=== PATIENT | female | born 1945 | race Caucasian/White ===

== ENCOUNTER 2019-04-30 14:16 | Inpatient (IN) ==
--- OUTSIDE RECORDS SUMMARY | 2019-04-30 14:19 | External Medical Summary | Continuity of Care Document ---
:1945 Author Name Demetrius Fitzgerald Address Unavailable Unavailable , Care Team Providers Name Role Phone Cary Moreland M.D. 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) Osteoarthrosis (715.90) (M19.90) Hypopotassemia (276.8) (E87.6) Dyslipidemia (272.4) (E78.5) Anxiety (300.00) (F41.9) Osteoporosis (733.00) (M81.0) GERD (gastroesophageal reflux disease) (530.81) (K21.9) Anemia (285.9) (D64.9) Dermatitis (692.9) (L30.9) Leg ulcer (707.10) (L97.909) Vitamin D deficiency (268.9) (E55.9) Adjustment disorder (309.9) (F43.20) Depression (311) (F32.9) Oth slipping, tripping and stumbling w/o falling, init (E917 .9) Abnormal gait (781.2) (R26.9) Hemorrhoid (455.6) (K64.9) Obsessive compulsive disorder (300.3) (F42.9) Addiction, opium (304.00) (F11.20) 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) Dizziness (780.4) (R42) Marylou esophagitis (112.84) (B37.81) Gastrointestinal bleeding, lower (578.9) (K92.2) Acute kidney injury (584.9) (N17.9) Acute respiratory failure with hypoxemia (518.81) (J96.01) Hypokalemia (276.8) (E87.6) HTN (hypertension) (401.9) (I10) Venous insufficiency (459.81) (I87.2) Leucocytosis (288.60) (D72.829) Arthritis, rheumatoid (714.0) (M06.9) Lung nodule (793.11) (R91.1) Diverticulitis (562.11) (K57.92) Allergies and Adverse Reactions Aleve TABS (Allergy) Reaction: Itching CeleBREX CAPS (Allergy) Clindamycin (Allergy) Reaction: Nausea Doxycycline Monohydrate CAPS (Allergy) R eaction: Nausea, Vomiting hydroCHLOROthiazide TABS (Allergy) React ion: Nausea, Vomiting oxyCODONE HCl TABS (Allergy) Reaction: I tching, Nausea, Vomiting Penicillins (Allergy) Reaction: Edema rofecoxib (Allergy) Reaction: Swelling Bee sting (Allergy) Medications One Touch Ultra Test Strips; Twice daily Refills: 0 Zoloft 50 MG Oral Tablet; TAKE 1 TABLET DAILY. Quantity: 30 Refills: 5 HYDROcodone-Acetaminophen 10-325 MG Oral Tablet; TAKE 1or 2 TABLET EVERY 4 HOURS NEEDED. Maximum of 8 / day. Quantity: 120 Refills: 0 Gabapentin 600 MG Oral Tablet; TAKE 1 TABLET 3 times daily Quantity: 270 Refills: 1 Dulcolax 5 MG Oral Tablet Delayed Release; TAKE 1 TABLET EVELINA LY NEEDED. Refills: 0 Lisinopril 10 MG Oral Tablet; TAKE 1 TABLET BY MOUTH EVERY D AY Quantity: 90 Refills: 3 Klor-Con M20 20 MEQ Oral Tablet Extended Release; Take 1 tab let daily Quantity: 90 Refills: 3 fentaNYL 25 MCG/HR Transdermal Patch 72 Hour; APPLY 1 PATCH EVERY 3 DAYS Quantity: 5 Refills: 0 fentaNYL 12 MCG/HR Transdermal Patch 72 Hour; APPLY 1 PATCH EVERY 3 DAYS 1 Patch 72 Hour Box Quantity: 2 Refills: 0 predniSONE 5 MG Oral Tablet; (3) TABLET ALTERNATING WITH 2 TABLETS EVERY OTHER DAY Refills: 0 Folic Acid 1 MG Oral Tablet; TAKE 1 TABLET DAILY. Quantity: 30 Refills: 5 Protonix 40 MG Oral Tablet Delayed Relea se; TAKE 1 TABLET TWICE DAILY 30 MINUTES BEFORE BREAKFAST AND DINNER. Quantity: 60 Refills: 5 Lipitor 20 MG Oral Tablet; TAKE 1 TABLET DAILY DIRECTED. Quantity: 30 Refills: 5 Ferrous Sulfate 325 (65 Fe) MG Oral Tablet; Take 1 tablet tw ice a day Quantity: 60 Refills: 5 Zofran 4 MG Oral Tablet; one tablet every 4-6 hours as neede d for nausea Quantity: 30 Refills: 0 Acetaminophen ER 650 MG Oral Tablet Exte nded Release; TAKE 1 TABLET 4 TIMES DAILY NEEDED. Refills: 0 ALPRAZolam 0.25 MG Oral Tablet; TAKE 1 TABLET EVERY 12 HOURS NEEDED. Refills: 0 Vitamin D 1000 UNIT TABS; TAKE 1 TABLET DAILY. Quantity: 30 Refills: 5 Multiple Vitamins Oral Tablet; TAKE 1 TABLET DAILY. Refills: 0 Reclast 5 MG/100ML Intravenous Solution; INFUSE 5MG INTRAVENOUSLY OVER 15 MINUTES DIRECTED. Refills: 0 Carafate 1 GM Oral Tablet; TAKE 1 TABLET IN MORNING Refills: 0 Procedures History of Hysterectomy Status: Complete d History of Neuroplasty Decompression Median Nerve At Carpal Status: Completed Tunnel History of Cholecystectomy Status: Compl eted History of Leg Repair Status: Completed Immunizations Immunizations not documented Family History Father Family history of lung cancer (V16.1) (Z80.1) Status: Active Family history of Disorder of skeletal muscle (728.9) (M62.9 ) Status: Active Mother Family history of Stroke or transient ischemic attack (TIA) Status: Active diagnosed during current admission (435.9) Brother Family history of cardiac disorder (V17.49) (Z82.49) Status: Active natural son Family history of Seizure (780.39) (R56.9) Status: Active Plan of Treatment Planned Observations Planned Goals not documented Results No Known Results Results not documented
--- OUTSIDE RECORDS SUMMARY | 2019-04-30 14:19 | External Medical Summary | Continuity of Care Document ---
:1945 Author Name Demetrius iFtzgerald Address Unavailable Unavailable , Care Team Providers Name Role Phone Cary Moreland M.D. 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 Quantity: 60 Refills: 5 Carafate 1 GM Oral Tablet; TAKE 1 TABLET IN MORNING Refills: 0 Lipitor 20 MG Oral Tablet; TAKE 1 [...] INTRAVENOUSLY OVER 15 MINUTES DIRECTED. Refills: 0 Procedures History of Hysterectomy Status: [...]
[2019-04-30] MEDS ORDERED: SODIUM CHLORIDE 0.9% 1000ML 500 ML IV ONE (14:37)
[2019-04-30] MEDS ORDERED: ONDANSETRON INJ 2 MG/ML 2 ML VIAL IV STA ×2 (14:49→16:42)
[2019-04-30 15:09] LABS: Basophils # (auto) 0.03 K/uL (0-0.2); Basophils % (auto) 0.2 %; Eosinophils # (auto) 0.21 K/uL (0-0.5); Eosinophils % (auto) 1.3 %; Hematocrit (blood only) 37.2 % (37-47); Hemoglobin 11.7 g/dL (12.0-16.0); Immature Granulocytes # (auto) 0.22 K/uL (0.00-0.02); Immature Granulocytes % (auto) 1.4 %; Lymphocytes # (auto) 1.98 K/uL (1.2-3.4); Lymphocytes % (auto) 12.6 %; Mean Corpuscular Hemoglobin 26.8 pg (25-34); Mean Corpuscular Hgb Conc 31.5 g/dL (32-36); Mean Corpuscular Volume 85.3 fL (80-100); Mean Platelet Volume 8.3 fL (7.4-10.4); Monocytes # (auto) 1.11 K/uL (0.11-0.59); Monocytes % (auto) 7.1 %; Neutrophils # (auto) 12.15 K/uL (1.4-6.5); Neutrophils % (auto) 77.4 %; Platelet Count 491 K/uL (130-400); RDW Coefficient of Variation 15.7 % (11.5-14.5); RDW Standard Deviation 49.3 fL (36.4-46.3); Red Blood Count 4.36 M/uL (4.2-5.4)
[2019-04-30 15:15] LABS: Appearance Urine Clear (Clear); Bacteria Urine Automated Negative (Negative); Blood Urine Negative (Negative); Color Urine Dark Yellow; Epithelial Cell Urine Auto 0-5 /lpf (0-5); Glucose Urine UA Negative (Negative); Ketones Urine Negative (Negative); Leukocyte Esterase Urine Negative (Negative); Nitrite Urine Negative (Negative); Protein Urine Trace (Negative); RBC Urine Automated 0-4 /hpf (0-4); Specific Gravity Urine 1.026 (1.000-1.030); Urobilinogen Urine Negative (Negative)
[2019-04-30 15:17] LABS: Bilirubin Urine Negative (Negative); Ictotest Urine Negative (Negative)
[2019-04-30 15:30] LABS: Alanine Aminotransferase 19 U/L (12-78); Albumin Level 1.8 gm/dl (3.4-5.0); Aspartate Aminotransferase 24 U/L (15-37); BUN Creatinine Ratio 28.4 (10-20); Bilirubin Direct 0.1 mg/dl (0-0.2); Blood Urea Nitrogen 23 mg/dl (7-18); Calcium 8.9 mg/dl (8.5-10.1); Carbon Dioxide 30 mmol/L (21-32); Chloride 103 mmol/L (98-107); Est GFR (African American) 82.9; Est GFR (Non-African American) 71.5; Glucose 123 mg/dl (70-99); Lipase 34 U/L (73-393); Potassium 3.6 mmol/L (3.5-5.1); Sodium 138 mmol/L (136-145)
--- NOTE | 2019-04-30 15:31 | CT Scan Report ---
HEAD CT NONCONTRAST CT DOSE: 537.48 mGy.cm HISTORY: Weakness. Altered mental status. TECHNIQUE: Multiaxial CT images of the head were performed without the use of intravenous contrast. A utomated exposure control was utilized for this study. A dose lowering technique was utilized adheri ng to the principles of ALARA. Comparison: None. Findings: Chronic opacification of the right ethmoid air cell and the right sphenoid sinus. This has slightly improved within the right sphenoid sinus. The mastoid air cells are clear. The calvarium and skull base are intact. There is no mass, hematoma, midline shift, acute infarct. White matter hypode nsity is nonspecific but suggestive of microvascular ischemic change. The ventricles and sulci demons trate mild age-related involutional changes. Impression: 1. No acute intracranial abnormality. 2. Mild atrophy and microvascular ischemic changes are again noted. 3. Slight improvement in the chronic opacification of the right sphenoid sinus. ACT 112: Negative or not required by law. Electronically signed by: Art Vargas M.D. 04/30/2019 3:29 PM
[2019-04-30 15:35] LABS: Alkaline Phosphatase 193 U/L (45-117); Bilirubin,Total 0.4 mg/dl (0.2-1); Total Protein 7.4 gm/dl (6.4-8.2); Troponin I < 0.015 ng/ml (0-0.045)
--- NOTE | 2019-04-30 16:06 | XRay Report ---
CHEST AND ABDOMEN 2 VIEWS HISTORY: Vomiting. COMPARISON: Chest [id number]. Abdomen and pelvis CT 02/22/2018. FINDINGS: No pneumothorax. No pleural effusions. The heart remains mildly enlarged. There are low hugo g volumes with elevation the right hemidiaphragm, unchanged. Old, healed left-sided rib fractures. Th e lungs are clear. Prior cholecystectomy. Advanced degenerative changes within the shoulders. Small h iatus hernia. No pneumoperitoneum. No pneumatosis. Levoscoliosis of the lumbar spine. No renal or ure teral calculi. Vascular calcifications are noted within the pelvis. Postoperative changes seen within the right proximal femur. The bowel gas pattern is unremarkable. No evidence for bowel obstruction. Suture material within the mid abdomen consistent with prior bowel anastomosis. IMPRESSION: No acute cardiopulmonary process. No evidence for bowel obstruction. ACT 112: Negative or not required by law. Electronically signed by: Art Vargas M.D. 04/30/2019 4:05 PM
--- NOTE | 2019-04-30 16:07 | XRay Report ---
XR shoulder LT min 2V routine CLINICAL HISTORY: L shoulder pain COMPARISON STUDY: None. FINDINGS: Advanced degenerative changes at the glenohumeral joint with resorption of the distal clavi rika and irregularity of the humeral head. This appears chronic. There is superior subluxation of the humeral head likely representing chronic rotator cuff tear. Subchondral cystic change at the glenoid and humeral head which is also likely chronic. No acute fractures identified. IMPRESSION: 1. No acute fractures within the left shoulder. 2. Chronic and degenerative changes as described above. ACT 112: Negative or not required by law. Electronically signed by: Art Vargas M.D. 04/30/2019 4:06 PM
--- NOTE | 2019-04-30 16:12 | XRay Report ---
XR pelvis 1-2V routine CLINICAL HISTORY: Left hip pain. Fall. COMPARISON STUDY: Pelvis 02/13/2014. FINDINGS: No acute fracture or dislocation within the pelvis or hips. The sacrum is intact. Advanced degenerative changes within the lower lumbar spine. There is mild osteoarthritis within the bilateral hips. Prior internal fixation of an old, healed right hip intertrochanteric fracture. The hardware a ppears intact. IMPRESSION: No acute fracture or dislocation within the pelvis or hips. ACT 112: Negative or not required by law. Electronically signed by: Art Vargas M.D. 04/30/2019 4:10 PM
[2019-04-30 16:31] LABS: Influenza A virus by PCR Neg for Influ A (Neg); Influenza B virus by PCR Neg for Influ B (Neg)
[2019-04-30 16:40] LABS: Partial Thromboplastin Ratio 3.2; Prothrombin Time > 90.0 Seconds (9.0-12.0)
[2019-04-30] MEDS: SODIUM CHLORIDE 0.9% 500 ML IV SCH ×2 (16:42→20:09)
[2019-04-30] MEDS ORDERED: MoRPHine SULFATE 4 MG/ML 1 ML CARP\\VIAL IV STA (16:42)
[2019-04-30 16:43] LABS: INR > 10.4 (0.9-1.1)
[2019-04-30 16:44] LABS: Partial Thromboplastin Time 86.2 Seconds (21.0-31.0)
[2019-04-30] MEDS ORDERED: VANCOMYCIN CONSULT ACTIVE PRN (16:46)
[2019-04-30] MEDS ORDERED: VANCOMYCIN HCL 1,250 MG in SODIUM CHLORIDE 0.9% 500 ML IV ONE (16:46)
[2019-04-30] MEDS ORDERED: CEFEPIME 2,000 MG/20 ML VIAL IV STA (16:46)
[2019-04-30] MEDS ORDERED: PHYTONADIONE 5 MG in SODIUM CHLORIDE 0.9% 50 ML IV ONE (16:49)
[2019-04-30] MEDS ORDERED: SODIUM CHLORIDE 0.9% 1000ML 1,000 ML IV SCH (17:00)
--- NOTE | 2019-04-30 18:31 | History & Physical Report ---
Date of Service April 30, 2019 Assessment & Plan (1) Left shoulder pain: (2) Leukocytosis: Pt is 73 y/o F with PMH HTN, dyslipidemia, h/o thyroid induced diabetes, anxiety, mood disorder, RLS, h/o PE on Coumadin, rheumatoid arthritis, chronic pain shoulders and knees presented to ER with c/o increased L shoulder pain x 1 week. In ER patient afebrile, BP: 84, RR: 20, BP: 129/75, 92% on room air WBC: 15, H/H: 11.7/37 (baseline Hgb ~1), lactate: 2.2 Right shoulder x-ray: No acute fractures within the left shoulder. Chronic and degenerative changes as described above. DDX: Septic arthritis, RA flare. DVT LUE less likely given pt's INR >10 Suspect septic right shoulder. Avoiding aspiration of joint at this time secondary to elevated INR -In ER given NSS 500 mL bolus followed by 125 mL an hour, cefepime, vancomycin -Repeat lactate 1.7 -Blood cultures pending -Continue cefepime, vancomycin -Add ESR -Obtain CT right shoulder -IV fluids, do not need aggressive fluid resuscitation secondary to lactate less than 4 -Ortho consult -CBC, BMP in a.m. -Consider ID consult (3) Nausea and vomiting: Complains of intermittent nausea and vomiting x 2 weeks. Last episode of emesis yesterday. Poor oral intake past 3 days. Reported upper abdominal pain prior to vomiting improved with vomiting Seen at [facility] ER on 04/25/2019 for generalized abdominal pain with CT abdomen pelvis no acute findings CXR/ABD XRAY: No acute cardiopulmonary process. No evidence for bowel obstruction. May be secondary to underlying infection, possible sepsis -No current abdominal pain -Zofran PRN nausea -Clear liquids for now -Closely monitor -CBC, BMP in a.m. -If worsening consider further imaging, and possible GI consult (4) Supratherapeutic INR: (5) History of pulmonary embolism: History of PE on chronic Coumadin INR > 10. Reported epistaxis last night resolved with compression. Denies hematuria, hematochezia, melena No current bleeding -In ER given vitamin K 5 mg IV -Hold Coumadin -INR in a.m. (6) Rheumatoid arthritis: (7) Chronic pain: Chronic bilateral shoulder and knee pain Patient follows with rheumatology - Dr Shaw. Pt on Remicade, chronic prednisone 5 mg daily, fentanyl and hydrocodone. 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 A1c: 6.5 on 09/09/2018. No current medication -Monitor BSG (9) Dyslipidemia: -Continue statin (10) Anxiety: -Continue sertraline (11) Restless leg syndrome: -Continue ropinirole DVT Prophylaxis -On Coumadin with current supratherapeutic INR Full Code as per discussion with pt Follows with Dr Becerra for routine care Pt was seen and care coordinated with Dr Zhao. See addendum History of Present Illness Chief Complaint: Left shoulder pain Primary Care Provider: Raheel Becerra MD Pt is 73 y/o F with PMH HTN, dyslipidemia, h/o thyroid induced diabetes, anxiety, mood disorder, RLS, h/o PE on Coumadin, rheumatoid arthritis, chronic pain shoulders and knees presented to ER with complaints of increased shoulder pain x1 week. Patient follows with rheumatology - Dr Shaw. Pt on Remicade, chronic prednisone 5 mg daily, fentanyl and hydrocodone. Patient reports chronic shoulder and knee pain. Reports left shoulder pain greater than right shoulder pain chronically. Patient states 1 week ago started with increased left shoulder pain. Patient states past 3 days has noticed increased edema to left shoulder and area feels warm. Patient reports pain radiating from left shoulder down the left arm. Reports limited range of motion to left shoulder secondary to pain. Denies paresthesias. No recent injury or trauma. Patient also reports decreased appetite past several days. She reports intermittent nausea and vomiting over the past 2 weeks. Last episode of vomiting yesterday. Reports upper abdominal pain prior to vomiting which improves after vomiting. Denies any current abdominal pain now. Last BM 5 days ago. Patient states episode of epistaxis last night lasting 15-20 minutes, resolved with compression. Denies melena, hematochezia, hematuria. Denies fever. reports always cold. States past 2 days with generalized weakness. Denies diaphoresis,, BULLARD, dizziness, syncope, vision changes, neck pain, CP, SOB, orthopnea, palpitations, cough, sore throat, choking, otalgia, rhinorrhea, other extremity edema, rashes, urinary symptoms. Patient was seen at [facility] ER on 04/25/2019 for left shoulder pain and generalized abdominal pain. There she was given Zofran 4 mg IV, Compazine. Had CT abdomen pelvis did not show any acute findings. Had x-ray of shoulder revealing chronic severe erosive changes. Patient had no leukocytosis and was discharged home. Allergies Allergy/AdvReac Type Severity Reaction Status Date / Time bee venom protein (honey bee) Allergy Severe ANAPHYLAXIS Verified 04/30/19 15:43 celecoxib Allergy Severe ANAPHYLAXIS Verified 04/30/19 15:43 rofecoxib Allergy Severe ANAPHYLAXIS Verified 04/30/19 15:43 naproxen Allergy Intermediate RASH Verified 04/30/19 15:43 oxycodone Allergy Intermediate RASH Verified 04/30/19 15:43 Penicillins Allergy Intermediate Hives Verified 04/30/19 15:43 Bactrim AdvReac Intermediate GI SYMPTOMS Verified 02/27/17 10:41 sulfamethoxazole AdvReac Intermediate GI SYMPTOMS Verified 04/30/19 15:43 trimethoprim AdvReac Intermediate GI SYMPTOMS Verified 04/30/19 15:43 clindamycin AdvReac Mild GI SYMPTOMS Verified 04/30/19 15:43 doxycycline AdvReac Mild GI SYMPTOMS Verified 04/30/19 15:43 hydrochlorothiazide AdvReac Mild Gi Symptoms Verified 04/30/19 15:43 Home Medications Home Medications Medication Instructions Recorded Confirmed Type ferrous sulfate 325 mg PO DAILY 02/22/18 04/30/19 History gabapentin 800 mg PO TID 02/22/18 04/30/19 History prednisone 5 mg PO DAILY 02/22/18 04/30/19 History ropinirole 0.5 mg PO HS 02/22/18 04/30/19 History sertraline 50 mg PO DAILY 02/22/18 04/30/19 History sucralfate 1 g PO ACHS 02/22/18 04/30/19 History atorvastatin [Lipitor] 40 mg PO DAILY 04/30/19 04/30/19 History fentanyl 37.5 mcg TOPICAL [id number] 04/30/19 04/30/19 History hydrocodone-acetaminophen 1 - 2 tab PO TID PRN 04/30/19 04/30/19 History omeprazole 20 mg PO DAILY 04/30/19 04/30/19 History ondansetron HCl [Zofran] 4 mg PO Q8 PRN 04/30/19 04/30/19 History warfarin [Jantoven] 1 mg PO DAILY 04/30/19 04/30/19 History Past Med/Surg History Medical History (Updated 04/30/19 @ 19:44 by Tyra Arreaga PA-C) Anxiety (Chronic) Chronic pain Dyslipidemia (Chronic) Gastric ulcer (Chronic) GERD (gastroesophageal reflux disease) (Chronic) HTN (hypertension) (Chronic) Neuropathy Osteoarthritis (Chronic) Osteoporosis PVD (peripheral vascular disease) (Chronic) Rheumatoid arthritis (Chronic) Steroid-induced diabetes mellitus (Chronic) Surgical History (Updated 02/27/18 @ 00:01 by Debbie Santoro) Femur fracture, right (Chronic) "s/p ORIF" H/O: hysterectomy History of carpal tunnel surgery of left wrist (Chronic) History of carpal tunnel surgery of right wrist (Chronic) History of skin graft (Chronic) Hx of cholecystectomy (Chronic) Hx of cholecystectomy S/P SHIRIN-BSO (Chronic) Social History Preferred Language: Irish Communication Ability: Effective Taping Supervisor Required: No Beliefs That Will Affect Care: None marital status: Current Living Situation: Spouse Other Information That Helps Us Care for You: No Feels Safe at Home: Yes Safety Concerns: Feels Safe At This Time Smoking Status: Former smoker Tobacco Type: cigarettes ; Do You Dip or Chew Tobacco: No ; Second Hand Exposure: No ; Tobacco Cessation Education Requested by Patient: No Hx Alcohol Use: No Hx Substance Use: No Review of Systems Review of Systems: All systems reviewed & are unremarkable except as noted in HPI & below Physical Exam Physical Exam: General: no acute distress, ill appearing, but non-toxic appearance, WDWN Head: normocephalic, atraumatic Eyes: PERRL, EOM's intact, conjunctiva non-injected, anicteric ENT: normal inspection external ears, nose, mucous membranes mildly dry Neck: supple, trachea midline, non-tender Lungs: clear, no respiratory distress, no wheezing/rhonchi/rales CV: RRR, no murmur, no pretibial edema Abd: normal BS, soft, non-tender Ext: LUE: Shoulder with +edema, +warmth, slight erythema, edema extends to forearm. +moderate to severe tenderness to light palpation of entire shoulder, upper arm, elbow and forearm. wrist without edema and non-tender to palpation. Very limited active ROM of elbow. Attempted passive ROM elbow and shoulder however pt unable to tolerate secondary to discomfort. Able to flex and extend fingers. Distal pulses palpable, sensation to light touch intact, brisk capillary refill. Bilateral knee without edema, erythema or significant warmth, +tender to palpation anterior knees, Able to flex and extend knees no calf tenderness Neuro: A&O x 3, no focal deficits noted, normal affect Skin: warm, dry Results & Data Vital Signs (Past 12 Hours) Vital Signs Temp Pulse Resp BP BP Pulse Ox 04/30/19 18:22 76 20 102/54 L 99 04/30/19 17:56 74 16 103/55 L 98 04/30/19 17:15 77 20 104/55 L 100 04/30/19 16:30 77 26 H 141/63 H 92 04/30/19 14:31 84 20 92 04/30/19 14:19 37 C 20 129/75 Laboratory Results Short CBC 04/30/19 Range/Units 15:01 WBC 15.70 H (4.8-10.8) K/uL Hgb 11.7 L (12.0-16.0) g/dL Hct 37.2 (37-47) % Plt Count 491 H (130-400) K/uL BMP 04/30/19 15:01 Sodium 138 Potassium 3.6 Chloride 103 Carbon Dioxide 30 BUN 23 H Creatinine 0.82 Glucose 123 H Calcium 8.9 Cardiac Enzymes 04/30/19 Range/Units 15:01 Troponin I < 0.015 (0-0.045) ng/ml Liver Function 04/30/19 Range/Units 15:01 Total Bilirubin 0.4 (0.2-1) mg/dl Direct Bilirubin 0.1 (0-0.2) mg/dl AST 24 (15-37) U/L ALT 19 (12-78) U/L Alkaline Phosphatase 193 H (45-117) U/L Albumin 1.8 L (3.4-5.0) gm/dl Urine 04/30/19 Range/Units 14:45 Urine Color Dark Yellow Urine Appearance Clear (Clear) Urine pH 5.0 (4.5-7.5) Ur Specific Langston 1.026 (1.000-1.030) Urine Protein Trace H (Negative) Urine Glucose (UA) Negative (Negative) Diagnostic Findings CT HEAD: Impression: 1. No acute intracranial abnormality. 2. Mild atrophy and microvascular ischemic changes are again noted. 3. Slight improvement in the chronic opacification of the right sphenoid sinus. L SHOULDER XRAY: IMPRESSION: 1. No acute fractures within the left shoulder. 2. Chronic and degenerative changes as described above. CXR/ABD XRAY: IMPRESSION: No acute cardiopulmonary process. No evidence for bowel obstruction. PELVIS XRAY: IMPRESSION: No acute fracture or dislocation within the pelvis or hips. ECG Rate (beats per minute): 75 Rhythm: sinus rhythm Code Status & VTE Plan VTE Prophylaxis Plan VTE Prophylaxis will be ordered: No Supervising Physician Co-Signing Physician Notes Pt was seen and examined. Agreed with Tyra MIRANDA exam, assessment and plan. 73 y/o F with PMH HTN, dyslipidemia, h/o thyroid induced diabetes, anxiety, mood disorder, RLS, h/o PE on Coumadin, rheumatoid arthritis, chronic pain shoulders and knees presented to ER with increased left shoulder pain. Pt said that her left shoulder has been tenderness, swelling and redness for the past week. She said that pain worsening if she tried to move the left upper extremity. Pt said that she has been feeling very weak. Lab showed Elevated WBC, lactate and ESR. CT L shoulder showed moderate to large peripheral enhancing effusion within the glenohumeral joint with multiple septations and thickening of the synovial lining. There is also thickening and enhancement extending into the distal subscapularis muscle. Erosive changes within the glenohumeral joint, distal clavicle, and acromion are also noted. Imaging discussed with radiologist when compared with previous imaging left shoulder imaging taking today is worsening. Received IV Vanco and Cefepime in the ER, will continue abx. will need to aspirate the left shoulder but due to elevated INR above 5, will hold that for now until INR reverses. No sign of bleeding. IV vit K given. Will monitor PT/INR. Ortho consult to eval for septic joint arthritis. Continue pain control. Blood cx collected in the ER pending. Will monitor very closely. MD Cece (1) Leukocytosis Leukocytosis type: unspecified Qualified Code(s): D72.829 - Elevated white blood cell count, unspecified (2) Left shoulder pain Chronicity: chronic Qualified Code(s): M25.512 - Pain in left shoulder; G89.29 - Other chronic pain (3) Nausea and vomiting Vomiting Intractability: intractable Vomiting type: unspecified Qualified Code(s): R11.2 - Nausea with vomiting, unspecified
[2019-04-30] MEDS ORDERED: NON-FORMULARY MEDICATION (Fentanyl 37.5 MCG) TOP SCH (20:04)
[2019-04-30] MEDS: SODIUM CHLORIDE 0.9% 1000ML 1,000 ML IV SCH (20:17)
[2019-04-30] MEDS ORDERED: IOVERSOL 100ml IV PRN (20:35)
--- NOTE | 2019-04-30 20:37 | Pharmacy Report ---
Pharmacy Abx Dose Short Note - Date of Service April 30, 2019 - Assessment & Plan Assessment 73 year old F receiving IV Vancomycin and Cefepime for treatment of likely septic arthritis of right shoulder, RA flare. Plan Vancomycin 1250mg (19mg/kg) IV x1 dose in ER then Vancomycin 1000mg (15mg/kg) IV Q12H Patient meets criteria for vancomycin AUC dosing nomogram AUC/CAROLINA is the preferred PK/PD target for vancomycin Target AUC/CAROLINA= 400-600 AUC guided dosing is effective and associated with decreased risk of nephrotoxicity Trough levels poorly correlate with AUC/CAROLINA and trough monitoring has been associated with increased risk of nephrotoxicity Will check trough level on 05/02/18 prior to 0400 dose to ensure therapeutic dosing Pharmacy will continue to follow and will adjust dose/frequency as necessary. Thank you.
--- NOTE | 2019-04-30 20:49 | Emergency Department Note ---
Entered by Kayla Moreno acting as a scribe for History of Present Illness General Chief complaint: Weakness Stated complaint: NO FOOD/DRINK - BED FAST FOR 3 DAYS Time Seen by Provider: 04/30/19 14:30 History of Present Illness Provider complaint: weakness Onset (ago): week(s) 2 Pain Consistency: + constant Maximum Pain Intensity: 10 Quality: + other (weakness) Exacerbated By: + movement Associated symptoms: + denies other symptoms (has not been eating or drinking, abdominal pain, dysuria), + nausea/vomiting and + other (hip, knee and left shoulder pain, ); no chest pain and no shortness of breath The patient is a 73 year old female who presents to the ED with complaints of constant weakness that started 2 weeks ago. The patient states that she believes she had a stomach virus a few days ago and was vomiting. The patient states that she is also having pain in her hips, knees and left shoulder. The patient states that all of her pain is exacerbated by movement. Per , the patient has not been able to eat or drink anything for a few days because of the nausea and vomiting. The patient denies chest pain, shortness of breath, abdominal pain, and dysuria. The patient notes that she is on Coumadin and she has not missed any doses. Home Medications Home Medications Medication Instructions Recorded Confirmed Type ferrous sulfate 325 mg PO DAILY 02/22/18 04/30/19 History gabapentin 800 mg PO TID 02/22/18 04/30/19 History prednisone 5 mg PO DAILY 02/22/18 04/30/19 History ropinirole 0.5 mg PO HS 02/22/18 04/30/19 History sertraline 50 mg PO DAILY 02/22/18 04/30/19 History sucralfate 1 g PO ACHS 02/22/18 04/30/19 History atorvastatin [Lipitor] 40 mg PO DAILY 04/30/19 04/30/19 History fentanyl 37.5 mcg TOPICAL [id number] 04/30/19 04/30/19 History hydrocodone-acetaminophen 1 - 2 tab PO TID PRN 04/30/19 04/30/19 History omeprazole 20 mg PO DAILY 04/30/19 04/30/19 History ondansetron HCl [Zofran] 4 mg PO Q8 PRN 04/30/19 04/30/19 History warfarin [Jantoven] 1 mg PO DAILY 04/30/19 04/30/19 History Allergies Allergy/AdvReac Type Severity Reaction Status Date / Time bee venom protein (honey bee) Allergy Severe ANAPHYLAXIS Verified 04/30/19 15:43 celecoxib Allergy Severe ANAPHYLAXIS Verified 04/30/19 15:43 rofecoxib Allergy Severe ANAPHYLAXIS Verified 04/30/19 15:43 naproxen Allergy Intermediate RASH Verified 04/30/19 15:43 oxycodone Allergy Intermediate RASH Verified 04/30/19 15:43 Penicillins Allergy Intermediate Hives Verified 04/30/19 15:43 Bactrim AdvReac Intermediate GI SYMPTOMS Verified 02/27/17 10:41 sulfamethoxazole AdvReac Intermediate GI SYMPTOMS Verified 04/30/19 15:43 trimethoprim AdvReac Intermediate GI SYMPTOMS Verified 04/30/19 15:43 clindamycin AdvReac Mild GI SYMPTOMS Verified 04/30/19 15:43 doxycycline AdvReac Mild GI SYMPTOMS Verified 04/30/19 15:43 hydrochlorothiazide AdvReac Mild Gi Symptoms Verified 04/30/19 15:43 Past Med/Surg History Medical History (Updated 04/30/19 @ 19:44 by Tyra Arreaga PA-C) Anxiety (Chronic) Chronic pain Dyslipidemia (Chronic) Gastric ulcer (Chronic) GERD (gastroesophageal reflux disease) (Chronic) HTN (hypertension) (Chronic) Neuropathy Osteoarthritis (Chronic) Osteoporosis PVD (peripheral vascular disease) (Chronic) Rheumatoid arthritis (Chronic) Steroid-induced diabetes mellitus (Chronic) Surgical History (Updated 02/27/18 @ 00:01 by Debbie Santoro) Femur fracture, right (Chronic) "s/p ORIF" H/O: hysterectomy History of carpal tunnel surgery of left wrist (Chronic) History of carpal tunnel surgery of right wrist (Chronic) History of skin graft (Chronic) Hx of cholecystectomy (Chronic) Hx of cholecystectomy S/P SHIRIN-BSO (Chronic) Social History Preferred Language: Yoruba Communication Ability: Effective Messenger Floorperson Required: No Beliefs That Will Affect Care: None marital status: Current Living Situation: Spouse Other Information That Helps Us Care for You: No Feels Safe at Home: Yes Safety Concerns: Feels Safe At This Time Smoking Status: Former smoker Tobacco Type: cigarettes ; Do You Dip or Chew Tobacco: No ; Second Hand Exposure: No ; Tobacco Cessation Education Requested by Patient: No Hx Alcohol Use: No Hx Substance Use: No Review of Systems See HPI for pertinent positives & negatives. and A total of 10 systems reviewed and were otherwise negative Physical Exam Vital Signs Vital Signs - 24 hr 04/30/19 14:19 04/30/19 14:31 04/30/19 16:30 Temperature 37 C Temperature Source Oral Pulse Rate [Ear Lobe] 84 77 Respiratory Rate 20 20 26 H Respiratory Effort / Characteristics Non-Labored Spontaneous Respiratory Depth Normal Respiratory Pattern Regular Blood Pressure 129/75 Blood Pressure [Right Arm] 141/63 H Blood Pressure Mean 93 Blood Pressure Mean [Right Arm] 89 Pulse Oximetry 92 92 Oxygen Delivery Method Room Air Room Air Room Air Oxygen Flow Rate Sepsis Recent Fever Within 48 Hours No Sepsis New/Unexplained Change in Mental Status No Sepsis Action Taken by Nursing No Action Required 04/30/19 17:15 04/30/19 17:56 Temperature Temperature Source Pulse Rate [Ear Lobe] 77 74 Respiratory Rate 20 16 Respiratory Effort / Characteristics Respiratory Depth Respiratory Pattern Blood Pressure Blood Pressure [Right Arm] 104/55 L 103/55 L Blood Pressure Mean Blood Pressure Mean [Right Arm] 71 71 Pulse Oximetry 100 98 Oxygen Delivery Method Nasal Cannula Nasal Cannula Oxygen Flow Rate 2 2 Sepsis Recent Fever Within 48 Hours Sepsis New/Unexplained Change in Mental Status Sepsis Action Taken by Nursing GENERAL: Ill-appearing HENT: Exam performed. -Head: Normocephalic and atraumatic. -Right Ear: External ear normal. No mastoid tenderness. -Left Ear: External ear normal. No mastoid tenderness. -Mouth/Throat: The oropharynx is clear and moist. No trismus in the jaw. No dental abscesses or uvula swelling. No oropharyngeal exudate or tonsillar abscesses. EYES: Conjunctivae and EOM are normal. Pupils are equal, round, and reactive to light. Right eye exhibits no discharge. Left eye exhibits no discharge. No scleral icterus. NECK: Normal range of motion. Neck supple. No JVD present. No spinous process tenderness present. No carotid bruit present. No rigidity. No tracheal deviation and normal range of motion present. No Brudzinski's sign and no Kernig's sign noted. CV: Normal rate, regular rhythm, normal heart sounds and intact distal pulses. T here is no peripheral edema. Palpable radial pulses bue. PULM/CHEST: Effort normal and breath sounds normal. No respiratory distress. No stridor. She has no wheezes. She has no rales. Chest Wall: She exhibits no tenderness. ABD: The abdomen is soft. Bowel sounds are normal. She has no distension. No mass is present. There is no tenderness. There is no rebound, no guarding, no Harman's sign and no tenderness at McBurney's point. Rovsig negative MUSC/SKEL: Pain to palpation of left shoulder and bilateral hips. LYMPH: No cervical adenopathy. NEURO: She is alert and oriented. GCS is 15. SKIN: Skin is warm and dry. She is not diaphoretic. PSYCH: She has a normal mood and affect. Her behavior is normal. Judgment and thought content normal. Course Course 1432: Past medical records reviewed. The patient was evaluated in room A12B. A complete history and physical exam was performed. 1439: Ephraim, case management, retrieved patient's records from [facility]. The patient has a history of adjustment disorder with depression, anxiety, acute kidney injury, chronic pain, rheumatoid arthritis, DVT, small bowel obstruction, PE and hypertension. Patient is on Hydrocodone 10mg/325mg on pain contract. The patient was evaluated on 04/25/2019 for evaluation of dehydration and joint pain. The patient had a CT of her abdomen with IV contrast that showed nonspecific bowel pattern, no current definitive CT evidence of mechanical obstruction and no free intraperitoneal air. She had a negative shoulder x-ray, negative chest x-ray and her INR was 3.25. 1645: Vital signs stable. Labs show leukocytosis of 15.7. Lactic acid 2.2. INR is greater than 10.4. I discussed the patients case with Dr. Sandhu. She recommends 10 mg of IV vitamin K and broad spectrum IV antibiotics. The patients blood cultures have been sent and we will repeat lactate after fluid bolus. I discussed the patients case with Dr. Zhao- [facility] Hospitalist. He will evaluate the patient for further management. 1745: Status post 1 L fluid bolus the patient's lactic acid is 1.7. Within normal limits. Patient will still be admitted to the hospital service. Consultations Consultation #1: I discussed the patients case with Dr. Sandhu. She recommends 10 mg of IV vitamin K and broad spectrum IV antibiotics. The patients blood cultures have been sent and we will repeat lactate after fluid bolus. Time: 16:45 Consultation #2: I discussed the patients case with Dr. Zhao- [facility] Hospitalist. He will evaluate the patient for further management. Time: 18:06 Administered Medications Sodium Chloride (Nss 1000ml) 1,000 mls @ 125 mls/hr IV .Q8H MAYTE Stop: 05/01/19 12:03 Last Admin: 04/30/19 20:17 Dose: 125 mls/hr Documented by: [id number] Ioversol (Optiray 320 100ml) 93 ml IV ONCE PRN PRN Reason: Interaction Checking Stop: 05/04/19 20:34 Last Admin: 04/30/19 20:36 Dose: 93 ml Documented by: [id number] Discontinued Medications Sodium Chloride (Nss 1000ml) 500 mls @ 999 mls/hr IV .Q31M ONE Stop: 04/30/19 15:07 Last Infusion: 04/30/19 16:41 Dose: 0 mls/hr Documented by: [id number] Admin: 04/30/19 14:59 Dose: 999 mls/hr Documented by: [id number] Sodium Chloride (Nss) 500 mls @ 125 mls/hr IV .Q4H [facility] Stop: 05/30/19 14:44 Last Admin: 04/30/19 20:09 Dose: Not Given Documented by: [id number] Infusion: 04/30/19 20:08 Dose: 0 mls/hr Documented by: [id number] Admin: 04/30/19 16:42 Dose: 125 mls/hr Documented by: [id number] Cefepime HCl (Maxipime) 2,000 mg in 20 mls @ 5 mls/min IV NOW STA; Protocol Stop: 04/30/19 16:49 Last Admin: 04/30/19 17:44 Dose: 5 mls/min Documented by: [id number] Vancomycin HCl 1,250 mg/ (Sodium Chloride) 525 mls @ 200 mls/hr IV NOW ONE Stop: 04/30/19 19:23 Last Admin: 04/30/19 18:22 Dose: 200 mls/hr Documented by: [id number] Phytonadione 5 mg/ Sodium (Chloride) 50.5 mls @ 101 mls/hr IV ONE ONE Stop: 04/30/19 17:18 Last Infusion: 04/30/19 18:26 Dose: 0 mls/hr Documented by: [id number] Admin: 04/30/19 17:53 Dose: 101 mls/hr Documented by: [id number] Sodium Chloride (Nss 1000ml) 1,000 mls @ 125 mls/hr IV .Q8H MAYTE Stop: 05/30/19 16:59 Last Admin: 04/30/19 20:08 Dose: Not Given Documented by: [id number] Morphine Sulfate (Morphine Sulfate) 4 mg IV NOW STA Stop: 04/30/19 16:43 Last Admin: 04/30/19 16:47 Dose: 4 mg Documented by: [id number] Ondansetron HCl (Zofran) 4 mg IV NOW STA Stop: 04/30/19 14:50 Last Admin: 04/30/19 14:59 Dose: 4 mg Documented by: [id number] Ondansetron HCl (Zofran) 4 mg IV NOW STA Stop: 04/30/19 16:43 Last Admin: 04/30/19 16:47 Dose: 4 mg Documented by: [id number] Medical Decision Making Medical Records Attestation: I reviewed the patient's medical records. Home Medications Current Medication List: was personally reviewed by me Laboratory Data Attestation: I reviewed the patient's lab results. Result diagrams: 04/30/19 15:01 04/30/19 15:01 Lab Results 04/30/19 04/30/19 04/30/19 Range/Units 14:45 15:01 15:01 WBC 15.70 H (4.8-10.8) K/uL RBC 4.36 (4.2-5.4) M/uL Hgb 11.7 L (12.0-16.0) g/dL Hct 37.2 (37-47) % MCV 85.3 (80-100) fL MCH 26.8 (25-34) pg MCHC 31.5 L (32-36) g/dL RDW Std Deviation 49.3 H (36.4-46.3) fL RDW Coeff of Karri 15.7 H (11.5-14.5) % Plt Count 491 H (130-400) K/uL MPV 8.3 (7.4-10.4) fL Immature Gran % (Auto) 1.4 % Neut % (Auto) 77.4 % Lymph % (Auto) 12.6 % Morgan % (Auto) 7.1 % Eos % (Auto) 1.3 % Baso % (Auto) 0.2 % Immature Gran # (Auto) 0.22 H (0.00-0.02) K/uL Neut # (Auto) 12.15 H (1.4-6.5) K/uL Lymph # (Auto) 1.98 (1.2-3.4) K/uL Morgan # (Auto) 1.11 H (0.11-0.59) K/uL Eos # (Auto) 0.21 (0-0.5) K/uL Baso # (Auto) 0.03 (0-0.2) K/uL ESR (0-21) mm/hr PT Cancelled INR Cancelled APTT Cancelled PTT Ratio Cancelled Sodium (136-145) mmol/L Potassium (3.5-5.1) mmol/L Chloride (98-107) mmol/L Carbon Dioxide (21-32) mmol/L Anion Gap (3-11) BUN (7-18) mg/dl Creatinine (0.6-1.2) mg/dl Est Cr Clr Drug Dosing Est GFR ( Amer) Est GFR (Non-Af Amer) BUN/Creatinine Ratio (10-20) Glucose (70-99) mg/dl POC Glucose (70-99) Lactate (0.4-2.0) mmol/L Calcium (8.5-10.1) mg/dl Magnesium (1.8-2.4) mg/dl Total Bilirubin (0.2-1) mg/dl Direct Bilirubin (0-0.2) mg/dl AST (15-37) U/L ALT (12-78) U/L Alkaline Phosphatase (45-117) U/L Troponin I (0-0.045) ng/ml Total Protein (6.4-8.2) gm/dl Albumin (3.4-5.0) gm/dl Lipase (73-393) U/L Urine Color Dark Yellow Urine Appearance Clear (Clear) Urine pH 5.0 (4.5-7.5) Ur Specific [place] 1.026 (1.000-1.030) Urine Protein Trace H (Negative) Urine Glucose (UA) Negative (Negative) Urine Ketones Negative (Negative) Urine Blood Negative (Negative) Urine Nitrite Negative (Negative) Urine Bilirubin Negative (Negative) Urine Urobilinogen Negative (Negative) Ur Leukocyte Esterase Negative (Negative) Urine WBC (Auto) 1-5 (0-5) /hpf Urine RBC (Auto) 0-4 (0-4) /hpf U Hyaline Cast (Auto) 5-10 H (0-5) /lpf U Epithel Cells (Auto) 0-5 (0-5) /lpf Urine Bacteria (Auto) Negative (Negative) Influenza Type A (PCR) (Neg) Influenza Type B (PCR) (Neg) 04/30/19 04/30/19 04/30/19 Range/Units 15:01 15:01 15:01 WBC (4.8-10.8) K/uL RBC (4.2-5.4) M/uL Hgb (12.0-16.0) g/dL Hct (37-47) % MCV (80-100) fL MCH (25-34) pg MCHC (32-36) g/dL RDW Std Deviation (36.4-46.3) fL RDW Coeff of Karri (11.5-14.5) % Plt Count (130-400) K/uL MPV (7.4-10.4) fL Immature Gran % (Auto) % Neut % (Auto) % Lymph % (Auto) % Morgan % (Auto) % Eos % (Auto) % Baso % (Auto) % Immature Gran # (Auto) (0.00-0.02) K/uL Neut # (Auto) (1.4-6.5) K/uL Lymph # (Auto) (1.2-3.4) K/uL Morgan # (Auto) (0.11-0.59) K/uL Eos # (Auto) (0-0.5) K/uL Baso # (Auto) (0-0.2) K/uL ESR > 90 H (0-21) mm/hr PT INR APTT PTT Ratio Sodium 138 (136-145) mmol/L Potassium 3.6 (3.5-5.1) mmol/L Chloride 103 (98-107) mmol/L Carbon Dioxide 30 (21-32) mmol/L Anion Gap 6.0 (3-11) BUN 23 H (7-18) mg/dl Creatinine 0.82 (0.6-1.2) mg/dl Est Cr Clr Drug Dosing Not Reportable Est GFR ( Amer) 82.9 Est GFR (Non-Af Amer) 71.5 BUN/Creatinine Ratio 28.4 H (10-20) Glucose 123 H (70-99) mg/dl POC Glucose (70-99) Lactate 2.2 H* (0.4-2.0) mmol/L Calcium 8.9 (8.5-10.1) mg/dl Magnesium 2.0 (1.8-2.4) mg/dl Total Bilirubin 0.4 (0.2-1) mg/dl Direct Bilirubin 0.1 (0-0.2) mg/dl AST 24 (15-37) U/L ALT 19 (12-78) U/L Alkaline Phosphatase 193 H (45-117) U/L Troponin I < 0.015 (0-0.045) ng/ml Total Protein 7.4 (6.4-8.2) gm/dl Albumin 1.8 L (3.4-5.0) gm/dl Lipase 34 L (73-393) U/L Urine Color Urine Appearance (Clear) Urine pH (4.5-7.5) Ur Specific [place] (1.000-1.030) Urine Protein (Negative) Urine Glucose (UA) (Negative) Urine Ketones (Negative) Urine Blood (Negative) Urine Nitrite (Negative) Urine Bilirubin (Negative) Urine Urobilinogen (Negative) Ur Leukocyte Esterase (Negative) Urine WBC (Auto) (0-5) /hpf Urine RBC (Auto) (0-4) /hpf U Hyaline Cast (Auto) (0-5) /lpf U Epithel Cells (Auto) (0-5) /lpf Urine Bacteria (Auto) (Negative) Influenza Type A (PCR) (Neg) Influenza Type B (PCR) (Neg) 04/30/19 04/30/19 04/30/19 Range/Units 15:03 15:09 16:11 WBC (4.8-10.8) K/uL RBC (4.2-5.4) M/uL Hgb (12.0-16.0) g/dL Hct (37-47) % MCV (80-100) fL MCH (25-34) pg MCHC (32-36) g/dL RDW Std Deviation (36.4-46.3) fL RDW Coeff of Karri (11.5-14.5) % Plt Count (130-400) K/uL MPV (7.4-10.4) fL Immature Gran % (Auto) % Neut % (Auto) % Lymph % (Auto) % Morgan % (Auto) % Eos % (Auto) % Baso % (Auto) % Immature Gran # (Auto) (0.00-0.02) K/uL Neut # (Auto) (1.4-6.5) K/uL Lymph # (Auto) (1.2-3.4) K/uL Morgan # (Auto) (0.11-0.59) K/uL Eos # (Auto) (0-0.5) K/uL Baso # (Auto) (0-0.2) K/uL ESR (0-21) mm/hr PT > 90.0 H INR > 10.4 H* APTT 86.2 H* PTT Ratio 3.2 Sodium (136-145) mmol/L Potassium (3.5-5.1) mmol/L Chloride (98-107) mmol/L Carbon Dioxide (21-32) mmol/L Anion Gap (3-11) BUN (7-18) mg/dl Creatinine (0.6-1.2) mg/dl Est Cr Clr Drug Dosing Est GFR ( Amer) Est GFR (Non-Af Amer) BUN/Creatinine Ratio (10-20) Glucose (70-99) mg/dl POC Glucose 108 H (70-99) Lactate (0.4-2.0) mmol/L Calcium (8.5-10.1) mg/dl Magnesium (1.8-2.4) mg/dl Total Bilirubin (0.2-1) mg/dl Direct Bilirubin (0-0.2) mg/dl AST (15-37) U/L ALT (12-78) U/L Alkaline Phosphatase (45-117) U/L Troponin I (0-0.045) ng/ml Total Protein (6.4-8.2) gm/dl Albumin (3.4-5.0) gm/dl Lipase (73-393) U/L Urine Color Urine Appearance (Clear) Urine pH (4.5-7.5) Ur Specific [place] (1.000-1.030) Urine Protein (Negative) Urine Glucose (UA) (Negative) Urine Ketones (Negative) Urine Blood (Negative) Urine Nitrite (Negative) Urine Bilirubin (Negative) Urine Urobilinogen (Negative) Ur Leukocyte Esterase (Negative) Urine WBC (Auto) (0-5) /hpf Urine RBC (Auto) (0-4) /hpf U Hyaline Cast (Auto) (0-5) /lpf U Epithel Cells (Auto) (0-5) /lpf Urine Bacteria (Auto) (Negative) Influenza Type A (PCR) Neg for Influ A (Neg) Influenza Type B (PCR) Neg for Influ B (Neg) 04/30/19 Range/Units 17:30 WBC (4.8-10.8) K/uL RBC (4.2-5.4) M/uL Hgb (12.0-16.0) g/dL Hct (37-47) % MCV (80-100) fL MCH (25-34) pg MCHC (32-36) g/dL RDW Std Deviation (36.4-46.3) fL RDW Coeff of Karri (11.5-14.5) % Plt Count (130-400) K/uL MPV (7.4-10.4) fL Immature Gran % (Auto) % Neut % (Auto) % Lymph % (Auto) % Morgan % (Auto) % Eos % (Auto) % Baso % (Auto) % Immature Gran # (Auto) (0.00-0.02) K/uL Neut # (Auto) (1.4-6.5) K/uL Lymph # (Auto) (1.2-3.4) K/uL Morgan # (Auto) (0.11-0.59) K/uL Eos # (Auto) (0-0.5) K/uL Baso # (Auto) (0-0.2) K/uL ESR (0-21) mm/hr PT INR APTT PTT Ratio Sodium (136-145) mmol/L Potassium (3.5-5.1) mmol/L Chloride (98-107) mmol/L Carbon Dioxide (21-32) mmol/L Anion Gap (3-11) BUN (7-18) mg/dl Creatinine (0.6-1.2) mg/dl Est Cr Clr Drug Dosing Est GFR ( Amer) Est GFR (Non-Af Amer) BUN/Creatinine Ratio (10-20) Glucose (70-99) mg/dl POC Glucose (70-99) Lactate 1.7 (0.4-2.0) mmol/L Calcium (8.5-10.1) mg/dl Magnesium (1.8-2.4) mg/dl Total Bilirubin (0.2-1) mg/dl Direct Bilirubin (0-0.2) mg/dl AST (15-37) U/L ALT (12-78) U/L Alkaline Phosphatase (45-117) U/L Troponin I (0-0.045) ng/ml Total Protein (6.4-8.2) gm/dl Albumin (3.4-5.0) gm/dl Lipase (73-393) U/L Urine Color Urine Appearance (Clear) Urine pH (4.5-7.5) Ur Specific [place] (1.000-1.030) Urine Protein (Negative) Urine Glucose (UA) (Negative) Urine Ketones (Negative) Urine Blood (Negative) Urine Nitrite (Negative) Urine Bilirubin (Negative) Urine Urobilinogen (Negative) Ur Leukocyte Esterase (Negative) Urine WBC (Auto) (0-5) /hpf Urine RBC (Auto) (0-4) /hpf U Hyaline Cast (Auto) (0-5) /lpf U Epithel Cells (Auto) (0-5) /lpf Urine Bacteria (Auto) (Negative) Influenza Type A (PCR) (Neg) Influenza Type B (PCR) (Neg) Imaging Data Radiologist's Impression: Radiology results as stated below per my review and the radiologist's interpretation: HEAD CT NONCONTRAST CT DOSE: 537.48 mGy.cm HISTORY: Weakness. Altered mental status. TECHNIQUE: Multiaxial CT images of the head were performed without the use of intravenous contrast. Automated exposure control was utilized for this study. A dose lowering technique was utilized adhering to the principles of ALARA. Comparison: None. Findings: Chronic opacification of the right ethmoid air cell and the right sphenoid sinus. This has slightly improved within the right sphenoid sinus. The mastoid air cells are clear. The calvarium and skull base are intact. There is no mass, hematoma, midline shift, acute infarct. White matter hypodensity is nonspecific but suggestive of microvascular ischemic change. The ventricles and sulci demonstrate mild age-related involutional changes. Impression: 1. No acute intracranial abnormality. 2. Mild atrophy and microvascular ischemic changes are again noted. 3. Slight improvement in the chronic opacification of the right sphenoid sinus. ACT 112: Negative or not required by law. Electronically signed by: Art Vargas M.D. 04/30/2019 3:29 PM CHEST AND ABDOMEN 2 VIEWS HISTORY: Vomiting. COMPARISON: Chest [id number]. Abdomen and pelvis CT 02/22/2018. FINDINGS: No pneumothorax. No pleural effusions. The heart remains mildly enlarged. There are low lung volumes with elevation the right hemidiaphragm, unchanged. Old, healed left-sided rib fractures. The lungs are clear. Prior cholecystectomy. Advanced degenerative changes within the shoulders. Small hiatus hernia. No pneumoperitoneum. No pneumatosis. Levoscoliosis of the lumbar spine. No renal or ureteral calculi. Vascular calcifications are noted within the pelvis. Postoperative changes seen within the right proximal femur. The bowel gas pattern is unremarkable. No evidence for bowel obstruction. Suture material within the mid abdomen consistent with prior bowel anastomosis. IMPRESSION: No acute cardiopulmonary process. No evidence for bowel obstruction. ACT 112: Negative or not required by law. Electronically signed by: Art Vargas M.D. 04/30/2019 4:05 PM XR shoulder LT min 2V routine CLINICAL HISTORY: L shoulder pain COMPARISON STUDY: None. FINDINGS: Advanced degenerative changes at the glenohumeral joint with resorption of the distal clavicle and irregularity of the humeral head. This appears chronic. There is superior subluxation of the humeral head likely representing chronic rotator cuff tear. Subchondral cystic change at the glenoid and humeral head which is also likely chronic. No acute fractures identified. IMPRESSION: 1. No acute fractures within the left shoulder. 2. Chronic and degenerative changes as described above. ACT 112: Negative or not required by law. Electronically signed by: Art Vargas M.D. 04/30/2019 4:06 PM XR pelvis 1-2V routine CLINICAL HISTORY: Left hip pain. Fall. COMPARISON STUDY: Pelvis 02/13/2014. FINDINGS: No acute fracture or dislocation within the pelvis or hips. The sacrum is intact. Advanced degenerative changes within the lower lumbar spine. There is mild osteoarthritis within the bilateral hips. Prior internal fixation of an old, healed right hip intertrochanteric fracture. The hardware appears intact. IMPRESSION: No acute fracture or dislocation within the pelvis or hips. ACT 112: Negative or not required by law. Electronically signed by: Art Vargas M.D. 04/30/2019 4:10 PM ECG Data Attestation: I personally reviewed and interpreted this ECG as follows: Indication: + weakness Rate (beats per minute): 71 Rhythm: + sinus rhythm ECG Intervals/blocks: + Normal QRS, + Normal WA and + Normal QT-c ECG ST segments: no ST depression and no ST elevation Blood Pressure Blood Pressure Findings: Low blood pressure Blood Pressure Disposition: further management by hospitalist VIOLA Narrative 1432: Past medical records reviewed. The patient was evaluated in room A12B. A complete history and physical exam was performed. 1439: Ephraim, case management, retrieved patient's records from [facility]. The patient has a history of adjustment disorder with depression, anxiety, acute kidney injury, chronic pain, rheumatoid arthritis, DVT, small bowel obstruction, PE and hypertension. Patient is on Hydrocodone 10mg/325mg on pain contract. The patient was evaluated on 04/25/2019 for evaluation of dehydration and joint pain. The patient had a CT of her abdomen with IV contrast that showed nonspecific bowel pattern, no current definitive CT evidence of mechanical obstruction and no free intraperitoneal air. She had a negative shoulder x-ray, negative chest x-ray and her INR was 3.25. 1645: Vital signs stable. Labs show leukocytosis of 15.7. Lactic acid 2.2. INR is greater than 10.4. I discussed the patients case with Dr. Sandhu. She recommends 10 mg of IV vitamin K and broad spectrum IV antibiotics. The patients blood cultures have been sent and we will repeat lactate after fluid bolus. I discussed the patients case with Dr. Zhao- [facility] Hospitalist. He will evaluate the patient for further management. 1745: Status post 1 L fluid bolus the patient's lactic acid is 1.7. Within normal limits. Patient will still be admitted to the hospital service. Impression & Plan Lactic acidemia, Nausea and vomiting, Leukocytosis, Left shoulder pain Discharge Plan Visit Data *Final* Discharge Date/Time: 04/30/19 19:05 Chief Complaint: Weakness Stated Complaint: NO FOOD/DRINK - BED FAST FOR 3 DAYS ED Provider: Bert Mcdaniel Discharge Problem: Lactic acidemia, Nausea and vomiting, Leukocytosis, Left shoulder pain Patient Disposition: Admitted As Inpatient Discharge Instructions Interventions: ED Discharge Assessment Last Done: 04/30/19 19:05 Discharge Problem: Nausea and vomiting Qualifiers: Vomiting type: unspecified Vomiting Intractability: intractable Qualified Code(s): R11.2 - Nausea with vomiting, unspecified Leukocytosis Qualifiers: Leukocytosis type: unspecified Qualified Code(s): D72.829 - Elevated white blood cell count, unspecified Left shoulder pain Qualifiers: Chronicity: chronic Qualified Code(s): M25.512 - Pain in left shoulder The scribe's documentation has been prepared under my direction and personally reviewed by me in its entirety. I confirm that the note above accurately reflec ts all work, treatment, procedures, and medical decision making performed by me.
[2019-04-30] MEDS: HYDROCODONE/ACETAMINOPHEN 10/325 TAB PO PRN (21:25)
[2019-04-30] MEDS: GABAPENTIN 800 MG TAB PO SCH (22:05)
[2019-04-30] MEDS: SUCRALFATE 1 GM TAB PO SCH (22:05)
[2019-04-30] MEDS: ROPINIROLE HCL 0.25 MG TABLET PO SCH (22:06)
--- NOTE | 2019-04-30 22:07 | CT Scan Report ---
CT shoulder LT w con HISTORY: left shoulder pain, edema TECHNIQUE: Multiaxial CT images of the left shoulder were performed following the use of intravenous contrast. COMPARISON STUDY: Left shoulder 04/30/2019. Chest CTA 02/22/2018. FINDINGS: There is a moderate to large peripheral enhancing effusion within the glenohumeral joint wh ich measures 8.7 x 6.6 x 4.1 cm. This demonstrates multiple septations with probable thickening of th e synovial lining. There is thickening and enhancement within the distal subscapularis muscle. Erosio n of the distal clavicle and acromion with small bony fragments along the superior border of this lar ge joint effusion. There is also irregularity and erosive change at the humeral head and glenoid. Of note, the effusion and erosive changes within the left shoulder were present on the 02/22/2018 chest CTA but appear to have progressed. No acute fracture or dislocation within the left shoulder. There a re old, healed left rib fractures. Linear densities within the visualized lungs are noted. This may r epresent subsegmental atelectasis. There is suggestion of mild congestive change within the lungs. Th ere is a fluid-filled and mildly distended esophagus IMPRESSION: Moderate to large peripheral enhancing effusion within the glenohumeral joint with multiple septation s and thickening of the synovial lining. There is also thickening and enhancement extending into the distal subscapularis muscle. Erosive changes within the glenohumeral joint, distal clavicle, and acro mion are also noted. These findings were present on the 02/22/2018 chest CTA but have progressed in t he interval. Therefore, this may represent a chronic septic arthritis. ACT 112: Negative or not required by law. Electronically signed by: Art Vargas M.D. 04/30/2019 11:15 PM
[2019-05-01] MEDS: CHECK FENTANYL PATCH PLACEMENT SCH ×6 (01:16→16:00)
[2019-05-01] MEDS: CEFEPIME 2,000 MG in SYRINGE 7.5 ML IV SCH ×3 (01:59→18:25)
[2019-05-01] MEDS: VANCOMYCIN HCL 1,000 MG in SODIUM CHLORIDE 0.9% 250 ML IV SCH ×2 (04:02→17:15)
[2019-05-01] MEDS: SODIUM CHLORIDE 0.9% 1000ML 1,000 ML IV SCH (04:11)
[2019-05-01] MEDS ORDERED: INFLUENZA Vaccine HIGH DOSE 65+yrs 0.5 mL Syr IM ONE (04:15)
[2019-05-01] MEDS: ONDANSETRON INJ 2 MG/ML 2 ML VIAL IV PRN (06:41)
[2019-05-01 07:22] LABS: Basophils # (auto) 0.03 K/uL (0-0.2); Basophils % (auto) 0.3 %; Eosinophils # (auto) 0.19 K/uL (0-0.5); Eosinophils % (auto) 2.2 %; Hematocrit (blood only) 33.2 % (37-47); Hemoglobin 10.2 g/dL (12.0-16.0); Immature Granulocytes # (auto) 0.17 K/uL (0.00-0.02); Lymphocytes # (auto) 1.22 K/uL (1.2-3.4); Lymphocytes % (auto) 14.1 %; Mean Corpuscular Hemoglobin 26.5 pg (25-34); Mean Corpuscular Hgb Conc 30.7 g/dL (32-36); Mean Corpuscular Volume 86.2 fL (80-100); Mean Platelet Volume 7.9 fL (7.4-10.4); Monocytes # (auto) 0.83 K/uL (0.11-0.59); Monocytes % (auto) 9.6 %; Neutrophils # (auto) 6.24 K/uL (1.4-6.5); Neutrophils % (auto) 71.8 %; Platelet Count 399 K/uL (130-400); RDW Coefficient of Variation 15.8 % (11.5-14.5); RDW Standard Deviation 50.3 fL (36.4-46.3); Red Blood Count 3.85 M/uL (4.2-5.4); White Blood Count 8.68 K/uL (4.8-10.8)
[2019-05-01 07:30] LABS: INR 1.5 (0.9-1.1); Prothrombin Time 14.5 Seconds (9.0-12.0)
[2019-05-01] MEDS: SUCRALFATE 1 GM TAB PO SCH ×4 (07:38→21:15)
[2019-05-01 08:02] LABS: BUN Creatinine Ratio 25.1 (10-20); Creatinine Clr Calc Pharmacy 71.3 ml/min; Est GFR (African American) 106.1; Est GFR (Non-African American) 91.6; Potassium 3.3 mmol/L (3.5-5.1)
[2019-05-01] MEDS ORDERED: DEXTROSE 50% 50 ML SYRINGE IV PRN (08:02)
[2019-05-01] MEDS ORDERED: CARBOHYDRATES FOR HYPOGLYCEMIA PO PRN (08:02)
[2019-05-01] MEDS ORDERED: GLUCOSE 10 TABS/TUBE PO PRN (08:02)
[2019-05-01] MEDS ORDERED: GLUCOSE 40% GEL 15 GM TUBE PO PRN (08:02)
[2019-05-01] MEDS ORDERED: GLUCAGON FOR INJ 1 MG VIAL SQ PRN (08:02)
[2019-05-01] MEDS ORDERED: POTASSIUM CHLORIDE 20 MEQ TABCR PO STA (08:24)
--- NOTE | 2019-05-01 08:30 | Hospitalist Progress Note ---
Date of Service May 01, 2019 Assessment & Plan (1) Left shoulder pain: (2) Leukocytosis: Septic arthritis Pt is 73 y/o F with PMH HTN, dyslipidemia, h/o thyroid induced diabetes, anxiety, mood disorder, RLS, h/o PE on Coumadin, rheumatoid arthritis, chronic pain shoulders and knees presented to ER with c/o increased L shoulder pain x 1 week. In ER patient afebrile, BP: 84, RR: 20, BP: 129/75, 92% on room air WBC: 15, H/H: 11.7/37 (baseline Hgb ~1), lactate: 2.2 Right shoulder x-ray: No acute fractures within the left shoulder. Chronic and degenerative changes as described above. CT shoulder (04/30/2019) significant for Moderate to large peripheral enhancing effusion within the glenohumeral joint with multiple septations and thickening of the synovial lining. There is also thickening and enhancement extending into the distal subscapularis muscle. Erosive changes within the glenohumeral joint, distal clavicle, and acromion are also noted. These findings were present on the 02/22/2018 chest CTA but have progressed in the interval. Therefore, this may represent a chronic septic arthritis. DDX: Septic arthritis, RA flare. DVT LUE less likely given pt's INR >10 Suspect septic right shoulder. Plan for aspiration of joint now as INR down to 1.5, Ortho consulted -In ER given NSS 500 mL bolus followed by 125 mL an hour, cefepime, vancomycin -Repeat lactate 1.7 -Blood cultures-pending -Continue cefepime, vancomycin -consider ID consult -Monitor ESR, over 90 on admission (04/30/2019) -IV fluids, do not need aggressive fluid resuscitation secondary to lactate less than 4 -WBC down to 8.7K from 15.7k -cont. to closely monitor Update: Patient is status post left shoulder aspiration, synovial fluid positive for gram-positive cocci, notified by the lab (3) Nausea and vomiting: Complains of intermittent nausea and vomiting x 2 weeks. Last episode of emesis yesterday. Poor oral intake past 3 days. Reported upper abdominal pain prior to vomiting improved with vomiting Seen at [facility] ER on 04/25/2019 for generalized abdominal pain with CT abdomen pelvis no acute findings CXR/ABD XRAY: No acute cardiopulmonary process. No evidence for bowel obstruction. May be secondary to underlying infection, possible sepsis -No current abdominal pain -Zofran PRN nausea -Clear liquids for now -Closely monitor -CBC, BMP in a.m. -If worsening consider further imaging, and possible GI consult, currently seems resolved, patient denies any nausea (4) Supratherapeutic INR: (5) History of pulmonary embolism: History of PE on chronic Coumadin INR > 10. Reported epistaxis which resolved with compression. Denies hematuria, hematochezia, melena No current bleeding -In ER given vitamin K 5 mg IV -Hold Coumadin -INR this AM 1.5 (6) Rheumatoid arthritis: (7) Chronic pain: Chronic bilateral shoulder and knee pain Patient follows with rheumatology - Dr Shaw. Pt on Remicade, chronic prednisone 5 mg daily, fentanyl and hydrocodone. 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 A1c: 6.5 on 09/09/2018. No current medications -Monitor BSG (9) Dyslipidemia: -Continue statin (10) Anxiety: -Continue sertraline (11) Restless leg syndrome: -Continue ropinirole DVT Prophylaxis - supratherapeutic INR on admission, now reversed, SCDs Full Code as per discussion with pt Follows with Dr Becerra for routine care Subjective Patient sitting up in chair, in no acute distress. Now s/p joint aspiration, of left shoulder, done earlier this morning, by orthopedics. Currently patient is in no acute distress, denies any chest pain, shortness of breath, abdominal pain, nausea or vomiting. Says that she has been having some subjective fevers and chills at home, which she never checked. Also reports history of sepsis, from cat scratch in the past. Patient's at the bedside Update: Notified by lab, that synovial fluid, contained gram-positive cocci Review of Systems Review of Systems: All systems reviewed & are unremarkable except as noted in HPI & below Constitutional: + fever and + chills Respiratory: no cough, no dyspnea and no pain on inspiration Cardiovascular: no chest pain, no palpitations and no edema Gastrointestinal: no abdominal pain, no nausea and no vomiting Physical Exam Physical Exam: General: Elderly female sitting up in chair, in no acute distress Head: normocephalic, atraumatic Eyes: PERRL, EOM's intact, conjunctiva non-injected, anicteric ENT: normal inspection external ears, nose, mucous membranes mildly dry Neck: supple, trachea midline, non-tender Lungs: clear, no respiratory distress, no wheezing/rhonchi/rales CV: RRR, no murmur, no pretibial edema Abd: normal BS, soft, non-tender Ext: LUE: Shoulder with +edema, +warmth, slight erythema, edema extends to forearm. +moderate to severe tenderness to light palpation of entire shoulder, upper arm, elbow and forearm. wrist without edema and non-tender to palpation. Very limited active ROM of elbow. Attempted passive ROM elbow and shoulder however pt unable to tolerate secondary to discomfort. Able to flex and extend fingers. Distal pulses palpable, sensation to light touch intact, brisk capillary refill. Bilateral knee without edema, erythema or significant warmth, +tender to palpation anterior knees, Able to flex and extend knees no calf tenderness Neuro: A&O x 3, no focal deficits noted, normal affect, speech fluent, no facial asymmetry, Skin: warm, dry Results & Data Vital Signs (Past 12 Hours) Vital Signs Temp Pulse Pulse Pulse Resp BP BP 05/01/19 07:21 37.2 C 78 18 123/65 05/01/19 07:16 71 05/01/19 07:14 70 05/01/19 04:36 37.5 C 96 H 18 122/71 04/30/19 23:22 36.9 C 116 H 20 87/50 L 04/30/19 21:01 37.2 C 72 20 100/60 04/30/19 20:25 73 Pulse Ox 05/01/19 07:21 90 05/01/19 07:16 05/01/19 07:14 05/01/19 04:36 92 04/30/19 23:22 92 04/30/19 21:01 96 04/30/19 20:25 Laboratory Results 05/01/19 05/01/19 05/01/19 Range/Units 07:34 07:33 07:05 WBC (4.8-10.8) K/uL RBC (4.2-5.4) M/uL Hgb (12.0-16.0) g/dL Hct (37-47) % MCV (80-100) fL MCH (25-34) pg MCHC (32-36) g/dL RDW Std Deviation (36.4-46.3) fL RDW Coeff of Karri (11.5-14.5) % Plt Count (130-400) K/uL MPV (7.4-10.4) fL Immature Gran % (Auto) % Neut % (Auto) % Lymph % (Auto) % [place] % (Auto) % Eos % (Auto) % Baso % (Auto) % Immature Gran # (Auto) (0.00-0.02) K/uL Neut # (Auto) (1.4-6.5) K/uL Lymph # (Auto) (1.2-3.4) K/uL [place] # (Auto) (0.11-0.59) K/uL Eos # (Auto) (0-0.5) K/uL Baso # (Auto) (0-0.2) K/uL ESR (0-21) mm/hr PT INR APTT PTT Ratio Sodium 140 (136-145) mmol/L Potassium 3.3 L (3.5-5.1) mmol/L Chloride 110 H (98-107) mmol/L Carbon Dioxide 27 (21-32) mmol/L Anion Gap 3.0 (3-11) BUN 15 (7-18) mg/dl Creatinine 0.59 L (0.6-1.2) mg/dl Est Cr Clr Drug Dosing 71.3 Est GFR ( Amer) 106.1 Est GFR (Non-Af Amer) 91.6 BUN/Creatinine Ratio 25.1 H (10-20) Glucose 71 (70-99) mg/dl POC Glucose 58 L* 53 L* (70-99) Lactate (0.4-2.0) mmol/L Calcium 8.0 L (8.5-10.1) mg/dl Magnesium (1.8-2.4) mg/dl Total Bilirubin (0.2-1) mg/dl Direct Bilirubin (0-0.2) mg/dl AST (15-37) U/L ALT (12-78) U/L Alkaline Phosphatase (45-117) U/L Troponin I (0-0.045) ng/ml Total Protein (6.4-8.2) gm/dl Albumin (3.4-5.0) gm/dl Lipase (73-393) U/L Urine Color Urine Appearance (Clear) Urine pH (4.5-7.5) Ur Specific [place] (1.000-1.030) Urine Protein (Negative) Urine Glucose (UA) (Negative) Urine Ketones (Negative) Urine Blood (Negative) Urine Nitrite (Negative) Urine Bilirubin (Negative) Urine Urobilinogen (Negative) Ur Leukocyte Esterase (Negative) Urine WBC (Auto) (0-5) /hpf Urine RBC (Auto) (0-4) /hpf U Hyaline Cast (Auto) (0-5) /lpf U Epithel Cells (Auto) (0-5) /lpf Urine Bacteria (Auto) (Negative) Influenza Type A (PCR) (Neg) Influenza Type B (PCR) (Neg) 05/01/19 05/01/19 04/30/19 Range/Units 07:05 07:05 17:30 WBC 8.68 (4.8-10.8) K/uL RBC 3.85 L (4.2-5.4) M/uL Hgb 10.2 L (12.0-16.0) g/dL Hct 33.2 L (37-47) % MCV 86.2 (80-100) fL MCH 26.5 (25-34) pg MCHC 30.7 L (32-36) g/dL RDW Std Deviation 50.3 H (36.4-46.3) fL RDW Coeff of Karri 15.8 H (11.5-14.5) % Plt Count 399 (130-400) K/uL MPV 7.9 (7.4-10.4) fL Immature Gran % (Auto) 2.0 % Neut % (Auto) 71.8 % Lymph % (Auto) 14.1 % [place] % (Auto) 9.6 % Eos % (Auto) 2.2 % Baso % (Auto) 0.3 % Immature Gran # (Auto) 0.17 H (0.00-0.02) K/uL Neut # (Auto) 6.24 (1.4-6.5) K/uL Lymph # (Auto) 1.22 (1.2-3.4) K/uL [place] # (Auto) 0.83 H (0.11-0.59) K/uL Eos # (Auto) 0.19 (0-0.5) K/uL Baso # (Auto) 0.03 (0-0.2) K/uL ESR (0-21) mm/hr PT 14.5 H INR 1.5 H APTT PTT Ratio Sodium (136-145) mmol/L Potassium (3.5-5.1) mmol/L Chloride (98-107) mmol/L Carbon Dioxide (21-32) mmol/L Anion Gap (3-11) BUN (7-18) mg/dl Creatinine (0.6-1.2) mg/dl Est Cr Clr Drug Dosing Est GFR ( Amer) Est GFR (Non-Af Amer) BUN/Creatinine Ratio (10-20) Glucose (70-99) mg/dl POC Glucose (70-99) Lactate 1.7 (0.4-2.0) mmol/L Calcium (8.5-10.1) mg/dl Magnesium (1.8-2.4) mg/dl Total Bilirubin (0.2-1) mg/dl Direct Bilirubin (0-0.2) mg/dl AST (15-37) U/L ALT (12-78) U/L Alkaline Phosphatase (45-117) U/L Troponin I (0-0.045) ng/ml Total Protein (6.4-8.2) gm/dl Albumin (3.4-5.0) gm/dl Lipase (73-393) U/L Urine Color Urine Appearance (Clear) Urine pH (4.5-7.5) Ur Specific [place] (1.000-1.030) Urine Protein (Negative) Urine Glucose (UA) (Negative) Urine Ketones (Negative) Urine Blood (Negative) Urine Nitrite (Negative) Urine Bilirubin (Negative) Urine Urobilinogen (Negative) Ur Leukocyte Esterase (Negative) Urine WBC (Auto) (0-5) /hpf Urine RBC (Auto) (0-4) /hpf U Hyaline Cast (Auto) (0-5) /lpf U Epithel Cells (Auto) (0-5) /lpf Urine Bacteria (Auto) (Negative) Influenza Type A (PCR) (Neg) Influenza Type B (PCR) (Neg) 01/04/20 01/04/20 01/04/20 Range/Units 16:11 15:09 15:03 WBC (4.8-10.8) K/uL RBC (4.2-5.4) M/uL Hgb (12.0-16.0) g/dL Hct (37-47) % MCV (80-100) fL MCH (25-34) pg MCHC (32-36) g/dL RDW Std Deviation (36.4-46.3) fL RDW Coeff of Karri (11.5-14.5) % Plt Count (130-400) K/uL MPV (7.4-10.4) fL Immature Gran % (Auto) % Neut % (Auto) % Lymph % (Auto) % [place] % (Auto) % Eos % (Auto) % Baso % (Auto) % Immature Gran # (Auto) (0.00-0.02) K/uL Neut # (Auto) (1.4-6.5) K/uL Lymph # (Auto) (1.2-3.4) K/uL [place] # (Auto) (0.11-0.59) K/uL Eos # (Auto) (0-0.5) K/uL Baso # (Auto) (0-0.2) K/uL ESR (0-21) mm/hr PT > 90.0 H INR > 10.4 H* APTT 86.2 H* PTT Ratio 3.2 Sodium (136-145) mmol/L Potassium (3.5-5.1) mmol/L Chloride (98-107) mmol/L Carbon Dioxide (21-32) mmol/L Anion Gap (3-11) BUN (7-18) mg/dl Creatinine (0.6-1.2) mg/dl Est Cr Clr Drug Dosing Est GFR ( Amer) Est GFR (Non-Af Amer) BUN/Creatinine Ratio (10-20) Glucose (70-99) mg/dl POC Glucose 108 H (70-99) Lactate (0.4-2.0) mmol/L Calcium (8.5-10.1) mg/dl Magnesium (1.8-2.4) mg/dl Total Bilirubin (0.2-1) mg/dl Direct Bilirubin (0-0.2) mg/dl AST (15-37) U/L ALT (12-78) U/L Alkaline Phosphatase (45-117) U/L Troponin I (0-0.045) ng/ml Total Protein (6.4-8.2) gm/dl Albumin (3.4-5.0) gm/dl Lipase (73-393) U/L Urine Color Urine Appearance (Clear) Urine pH (4.5-7.5) Ur Specific [place] (1.000-1.030) Urine Protein (Negative) Urine Glucose (UA) (Negative) Urine Ketones (Negative) Urine Blood (Negative) Urine Nitrite (Negative) Urine Bilirubin (Negative) Urine Urobilinogen (Negative) Ur Leukocyte Esterase (Negative) Urine WBC (Auto) (0-5) /hpf Urine RBC (Auto) (0-4) /hpf U Hyaline Cast (Auto) (0-5) /lpf U Epithel Cells (Auto) (0-5) /lpf Urine Bacteria (Auto) (Negative) Influenza Type A (PCR) Neg for Influ A (Neg) Influenza Type B (PCR) Neg for Influ B (Neg) 04/30/19 04/30/19 04/30/19 Range/Units 15:01 15:01 15:01 WBC (4.8-10.8) K/uL RBC (4.2-5.4) M/uL Hgb (12.0-16.0) g/dL Hct (37-47) % MCV (80-100) fL MCH (25-34) pg MCHC (32-36) g/dL RDW Std Deviation (36.4-46.3) fL RDW Coeff of Karri (11.5-14.5) % Plt Count (130-400) K/uL MPV (7.4-10.4) fL Immature Gran % (Auto) % Neut % (Auto) % Lymph % (Auto) % [place] % (Auto) % Eos % (Auto) % Baso % (Auto) % Immature Gran # (Auto) (0.00-0.02) K/uL Neut # (Auto) (1.4-6.5) K/uL Lymph # (Auto) (1.2-3.4) K/uL [place] # (Auto) (0.11-0.59) K/uL Eos # (Auto) (0-0.5) K/uL Baso # (Auto) (0-0.2) K/uL ESR > 90 H (0-21) mm/hr PT INR APTT PTT Ratio Sodium 138 (136-145) mmol/L Potassium 3.6 (3.5-5.1) mmol/L Chloride 103 (98-107) mmol/L Carbon Dioxide 30 (21-32) mmol/L Anion Gap 6.0 (3-11) BUN 23 H (7-18) mg/dl Creatinine 0.82 (0.6-1.2) mg/dl Est Cr Clr Drug Dosing Not Reportable Est GFR ( Amer) 82.9 Est GFR (Non-Af Amer) 71.5 BUN/Creatinine Ratio 28.4 H (10-20) Glucose 123 H (70-99) mg/dl POC Glucose (70-99) Lactate 2.2 H* (0.4-2.0) mmol/L Calcium 8.9 (8.5-10.1) mg/dl Magnesium 2.0 (1.8-2.4) mg/dl Total Bilirubin 0.4 (0.2-1) mg/dl Direct Bilirubin 0.1 (0-0.2) mg/dl AST 24 (15-37) U/L ALT 19 (12-78) U/L Alkaline Phosphatase 193 H (45-117) U/L Troponin I < 0.015 (0-0.045) ng/ml Total Protein 7.4 (6.4-8.2) gm/dl Albumin 1.8 L (3.4-5.0) gm/dl Lipase 34 L (73-393) U/L Urine Color Urine Appearance (Clear) Urine pH (4.5-7.5) Ur Specific [place] (1.000-1.030) Urine Protein (Negative) Urine Glucose (UA) (Negative) Urine Ketones (Negative) Urine Blood (Negative) Urine Nitrite (Negative) Urine Bilirubin (Negative) Urine Urobilinogen (Negative) Ur Leukocyte Esterase (Negative) Urine WBC (Auto) (0-5) /hpf Urine RBC (Auto) (0-4) /hpf U Hyaline Cast (Auto) (0-5) /lpf U Epithel Cells (Auto) (0-5) /lpf Urine Bacteria (Auto) (Negative) Influenza Type A (PCR) (Neg) Influenza Type B (PCR) (Neg) 04/30/19 04/30/19 04/30/19 Range/Units 15:01 15:01 14:45 WBC 15.70 H (4.8-10.8) K/uL RBC 4.36 (4.2-5.4) M/uL Hgb 11.7 L (12.0-16.0) g/dL Hct 37.2 (37-47) % MCV 85.3 (80-100) fL MCH 26.8 (25-34) pg MCHC 31.5 L (32-36) g/dL RDW Std Deviation 49.3 H (36.4-46.3) fL RDW Coeff of Karri 15.7 H (11.5-14.5) % Plt Count 491 H (130-400) K/uL MPV 8.3 (7.4-10.4) fL Immature Gran % (Auto) 1.4 % Neut % (Auto) 77.4 % Lymph % (Auto) 12.6 % [place] % (Auto) 7.1 % Eos % (Auto) 1.3 % Baso % (Auto) 0.2 % Immature Gran # (Auto) 0.22 H (0.00-0.02) K/uL Neut # (Auto) 12.15 H (1.4-6.5) K/uL Lymph # (Auto) 1.98 (1.2-3.4) K/uL [place] # (Auto) 1.11 H (0.11-0.59) K/uL Eos # (Auto) 0.21 (0-0.5) K/uL Baso # (Auto) 0.03 (0-0.2) K/uL ESR (0-21) mm/hr PT Cancelled INR Cancelled APTT Cancelled PTT Ratio Cancelled Sodium (136-145) mmol/L Potassium (3.5-5.1) mmol/L Chloride (98-107) mmol/L Carbon Dioxide (21-32) mmol/L Anion Gap (3-11) BUN (7-18) mg/dl Creatinine (0.6-1.2) mg/dl Est Cr Clr Drug Dosing Est GFR ( Amer) Est GFR (Non-Af Amer) BUN/Creatinine Ratio (10-20) Glucose (70-99) mg/dl POC Glucose (70-99) Lactate (0.4-2.0) mmol/L Calcium (8.5-10.1) mg/dl Magnesium (1.8-2.4) mg/dl Total Bilirubin (0.2-1) mg/dl Direct Bilirubin (0-0.2) mg/dl AST (15-37) U/L ALT (12-78) U/L Alkaline Phosphatase (45-117) U/L Troponin I (0-0.045) ng/ml Total Protein (6.4-8.2) gm/dl Albumin (3.4-5.0) gm/dl Lipase (73-393) U/L Urine Color Dark Yellow Urine Appearance Clear (Clear) Urine pH 5.0 (4.5-7.5) Ur Specific [place] 1.026 (1.000-1.030) Urine Protein Trace H (Negative) Urine Glucose (UA) Negative (Negative) Urine Ketones Negative (Negative) Urine Blood Negative (Negative) Urine Nitrite Negative (Negative) Urine Bilirubin Negative (Negative) Urine Urobilinogen Negative (Negative) Ur Leukocyte Esterase Negative (Negative) Urine WBC (Auto) 1-5 (0-5) /hpf Urine RBC (Auto) 0-4 (0-4) /hpf U Hyaline Cast (Auto) 5-10 H (0-5) /lpf U Epithel Cells (Auto) 0-5 (0-5) /lpf Urine Bacteria (Auto) Negative (Negative) Influenza Type A (PCR) (Neg) Influenza Type B (PCR) (Neg) Diagnostic Findings CT shoulder 04/30/2019 IMPRESSION: Moderate to large peripheral enhancing effusion within the glenohumeral joint with multiple septations and thickening of the synovial lining. There is also thickening and enhancement extending into the distal subscapularis muscle. Erosive changes within the glenohumeral joint, distal clavicle, and acromion are also noted. These findings were present on the 02/22/2018 chest CTA but have progressed in the interval. Therefore, this may represent a chronic septic arthritis. Medications Administered Current Inpatient Medications Hydrocodone Bitart/Acetaminophen ([place] 10/325) 1 tab PO TID PRN PRN Reason: Pain Stop: 05/14/19 20:03 Last Admin: 04/30/19 21:25 Dose: 1 tab Documented by: Atorvastatin Calcium (Lipitor) 40 mg PO DAILY [facility] Stop: 05/31/19 08:59 Dextrose (Dextrose 50%) 25 - 50 ml IV UD PRN; Protocol PRN Reason: Hypoglycemia Protocol Stop: 05/31/19 08:01 Fentanyl (Duragesic) 25 mcg TD Q3D [facility] Stop: 05/15/19 08:59 Fentanyl (Duragesic) 12 mcg TD Q3D [facility] Stop: 05/15/19 08:59 Ferrous Sulfate (Feosol) 325 mg PO DAILY [facility] Stop: 05/31/19 08:59 Gabapentin (Neurontin) 800 mg PO TID [facility] Stop: 05/30/19 20:59 Last Admin: 04/30/19 22:05 Dose: 800 mg Documented by: Glucagon (Glucagen) 1 mg SQ UD PRN; Protocol PRN Reason: Hypoglycemia Protocol Stop: 05/31/19 08:01 Glucose (Dex4 Glucose) 4 - 8 tabs PO UD PRN; Protocol PRN Reason: Hypoglycemia Protocol Stop: 05/31/19 08:01 Glucose (Glucose 40%) 15 - 30 gm PO UD PRN; Protocol PRN Reason: Hypoglycemia Protocol Stop: 05/31/19 08:01 Cefepime HCl 2,000 mg/ Syringe 20 mls @ 5.5 mls/min IV Q8H [facility]; Protocol Stop: 05/02/19 17:59 Last Admin: 05/01/19 01:59 Dose: 5.5 mls/min Documented by: Sodium Chloride (Nss 1000ml) 1,000 mls @ 125 mls/hr IV .Q8H [facility] Stop: 05/01/19 12:03 Last Admin: 05/01/19 04:11 Dose: 125 mls/hr Documented by: Vancomycin HCl 1,000 mg/ (Sodium Chloride) 270 mls @ 125 mls/hr IV Q12H [facility] Stop: 06/12/19 03:59 Last Infusion: 05/01/19 06:15 Dose: Infused Documented by: Ioversol (Optiray 320 100ml) 93 ml IV ONCE PRN PRN Reason: Interaction Checking Stop: 05/04/19 20:34 Last Admin: 04/30/19 20:36 Dose: 93 ml Documented by: Miscellaneous (Fentanyl Patch Remove & Waste) 1 ea N/A Q72H [facility] Stop: 06/03/19 08:58 Miscellaneous (Fentanyl Patch Check Placement) 1 ea N/A QS [facility] Stop: 05/31/19 00:00 Last Admin: 05/01/19 07:39 Dose: 1 ea Documented by: Miscellaneous (Fentanyl Patch Remove & Waste) 1 ea N/A Q72H [facility] Stop: 06/03/19 08:58 Miscellaneous (Fentanyl Patch Check Placement) 1 ea N/A QS [facility] Stop: 05/31/19 00:00 Last Admin: 05/01/19 07:40 Dose: 1 ea Documented by: Miscellaneous (Fentanyl Patch Remove & Waste) 1 ea N/A 0859 ONE Stop: 05/01/19 09:00 Miscellaneous (Carbohydrates For Hypoglycemia) 15 - 30 gm PO UD PRN PRN Reason: Hypoglycemia Protocol Stop: 05/31/19 08:01 Miscellaneous Information (Consult) 1 ea N/A UD PRN PRN Reason: Consult Stop: 05/30/19 16:45 Ondansetron HCl (Zofran) 4 mg IV Q6H PRN PRN Reason: Nausea Stop: 05/30/19 20:03 Last Admin: 05/01/19 06:41 Dose: 4 mg Documented by: Pantoprazole Sodium (Protonix) 40 mg PO DAILY [facility] Stop: 05/31/19 08:59 Prednisone (Prednisone) 5 mg PO DAILY [facility] Stop: 05/31/19 08:59 Ropinirole HCl (Requip) 0.5 mg PO HS [facility] Stop: 05/30/19 20:59 Last Admin: 04/30/19 22:06 Dose: 0.5 mg Documented by: Sertraline HCl (Zoloft) 50 mg PO DAILY [facility] Stop: 05/31/19 08:59 Sucralfate (Carafate Tab) 1 gm PO ACHS [facility] Stop: 05/30/19 20:59 Last Admin: 05/01/19 07:38 Dose: 1 gm Documented by: (1) Leukocytosis Leukocytosis type: unspecified Qualified Code(s): D72.829 - Elevated white blood cell count, unspecified (2) Left shoulder pain Chronicity: chronic Qualified Code(s): M25.512 - Pain in left shoulder; G89.29 - Other chronic pain (3) Nausea and vomiting Vomiting Intractability: intractable Vomiting type: unspecified Qualified Code(s): R11.2 - Nausea with vomiting, unspecified
[2019-05-01] MEDS ORDERED: fentaNYL 12 MCG/HR TDSY TD SCH (09:00)
[2019-05-01] MEDS ORDERED: fentaNYL 25 MCG/HR TDSY TD SCH (09:00)
[2019-05-01] MEDS: ATORVASTATIN 40 MG TAB PO SCH (09:05)
[2019-05-01] MEDS: SERTRALINE HCL 50 MG TABLET PO SCH (09:06)
[2019-05-01] MEDS: predniSONE 5 MG TAB PO SCH (09:06)
[2019-05-01] MEDS: FERROUS SULFATE 325 MG TAB PO SCH (09:06)
[2019-05-01] MEDS: PANTOprazole 40 MG TAB PO SCH (09:07)
[2019-05-01] MEDS: GABAPENTIN 800 MG TAB PO SCH ×3 (09:07→21:15)
[2019-05-01] MEDS ORDERED: ETHYL CHLORIDE AER PER SPRAY 100 ML CAN EXT ONE (09:41)
[2019-05-01] MEDS ORDERED: ETHYL CHLORIDE AER SPR 100 ML CAN EXT ONE (10:00)
[2019-05-01] MEDS ORDERED: MoRPHine SULFATE 4 MG/ML 1 ML CARP\\VIAL IV STA (10:08)
[2019-05-01] MEDS ORDERED: Nursing to Pharmacy Communication ONE (10:09)
[2019-05-01] MEDS ORDERED: LIDOCAINE HCL 1% 20 ML VIAL INFIL ONE (10:15)
[2019-05-01] MEDS: BUPIVACAINE 0.25% 30 ML VIAL INFIL ONE ×2 (10:26→11:25)
--- NOTE | 2019-05-01 11:34 | Consultation Report ---
DATE OF CONSULTATION: 05/01/2019 ORTHOPEDIC SURGERY INPATIENT CONSULTATION Special attention to left shoulder pain and swelling. HISTORY OF PRESENT ILLNESS: This is a 73-year-old female who has a 2-week history of significant pain and swelling in the left shoulder; it increased over the past 2 weeks. She notes a history of a fall in September of this year with subsequent pain in the shoulder. This did improve to a degree, but did worsen over the past 2 weeks. She denies significant numbness. PAST MEDICAL HISTORY: Includes, 1. Rheumatoid arthritis. 2. Hypertension. 3. Dyslipidemia. 4. Thyroid-induced diabetes. 5. Mood disorder. 6. RLS. 7. History of PE, on Coumadin. 8. Chronic pain in bilateral shoulders and knees. 9. Peripheral vascular disease. MEDICATIONS: Multiple and include, 1. Prednisone 5 mg daily. 2. Gabapentin. 3. Fentanyl patch. 4. Warfarin. 5. Zofran. 6. Omeprazole. PHYSICAL EXAMINATION: Left shoulder examination does show a large palpable effusion in the shoulder that I can feel both anteriorly and posteriorly. There is mild erythema but no significant erythema. No streaking erythema or cellulitis. Left hand exam: Radial, ulnar, median nerves are grossly intact to function, although exam is limited secondary to discomfort. She has moderate swelling in the hand and elbow. Review of shoulder radiographs does confirm significant arthritic changes in the shoulder consistent with rheumatoid arthritis. She has no evidence of dislocation of the shoulder joint. Large amount of subchondral cysts are seen with erosion of the glenoid. Review of CAT scan of the shoulder does show a large enhancing effusion in the glenohumeral joint, measuring 8 x 6 x 4 cm. Thickening of the synovial lining is seen. ASSESSMENT: A 73-year-old female with rheumatoid arthritis, with left shoulder effusion. Differential diagnosis could include: 1. Effusion from rheumatoid flare. 2. Gout. 3. Pseudogout. 4. Septic arthritis. 5. Hematoma given supratherapeutic INR of greater than 10. I discussed the treatment with the patient. I feel it would be reasonable to aspirate the shoulder. PROCEDURE NOTE: Informed consent was obtained by the patient and witnessed by the nurse. I carefully prepped the anterior shoulder with alcohol and then with Betadine. I injected 5 mL of lidocaine in the local area. With an 18-gauge spinal needle, I entered the shoulder from an anterior approach. I was able to withdraw 14 mL of serous yellow-colored fluid. I did not detect gross purulence. The aspiration was sent for cultures, crystals, Gram stain, cell count. PLAN: We will monitor results of cultures and further treatment pending culture results.
[2019-05-01 12:12] LABS: Appearance Synovial Fluid TURBID; Color Synovial Fluid PALE YELLOW; Mononuclear WBC Synovial 3.7 %; Polynuclear WBC Synovial 96.3 %; RBC Synovial Fluid (A) 10000 /uL; Source Synovial Fluid OTHER; WBC Synovial Fluid (A) 37710 /uL (0-200)
--- NOTE | 2019-05-01 12:59 | Electrocardiogram Report ---
Test Reason : Blood Pressure : / mmHG Vent. Rate : 075 BPM Atrial Rate : 075 BPM P-R Int : 150 ms QRS Dur : 080 ms QT Int : 406 ms P-R-T Axes : 014 -11 031 degrees QTc Int : 453 ms Normal sinus rhythm Normal ECG When compared with ECG of 22-FEB-2018 15:28, Nonspecific T wave abnormality no longer evident in Anterior leads Confirmed by Alvaro Guerrier ([id number]) on 05/01/2019 12:58:50 PM Referred By: REFERRED SELF Confirmed By:Alvaro Guerrier
[2019-05-01] MEDS ORDERED: SODIUM CHLORIDE 0.9% 1000ML 500 ML IV ONE (18:06)
[2019-05-01] MEDS: ROPINIROLE HCL 0.25 MG TABLET PO SCH (21:16)
[2019-05-02] MEDS: CHECK FENTANYL PATCH PLACEMENT SCH ×4 (01:16→10:18)
[2019-05-02] MEDS: CEFEPIME 2,000 MG in SYRINGE 7.5 ML IV SCH ×2 (01:21→10:11)
[2019-05-02] MEDS ORDERED: VANCOMYCIN TROUGH ONE (03:30)
[2019-05-02 03:38] LABS: Hematocrit (blood only) 28.9 % (37-47); Hemoglobin 9.1 g/dL (12.0-16.0); Mean Corpuscular Hemoglobin 26.3 pg (25-34); Mean Corpuscular Hgb Conc 31.5 g/dL (32-36); Mean Corpuscular Volume 83.5 fL (80-100); Mean Platelet Volume 8.2 fL (7.4-10.4); Platelet Count 359 K/uL (130-400); RDW Coefficient of Variation 15.7 % (11.5-14.5); Red Blood Count 3.46 M/uL (4.2-5.4); White Blood Count 8.85 K/uL (4.8-10.8)
[2019-05-02 04:10] LABS: BUN Creatinine Ratio 21.4 (10-20); Creatinine Clr Calc Pharmacy 80.9 ml/min; Est GFR (African American) 110.6; Est GFR (Non-African American) 95.5; Magnesium 1.9 mg/dl (1.8-2.4); Potassium 3.8 mmol/L (3.5-5.1)
[2019-05-02] MEDS: VANCOMYCIN HCL 1,000 MG in SODIUM CHLORIDE 0.9% 250 ML IV SCH ×2 (04:56→20:48)
[2019-05-02 06:14] LABS: Estimated Average Glucose 140 mg/dl; Hemoglobin A1C 6.5 % (4.5-5.6)
--- NOTE | 2019-05-02 07:47 | Hospitalist Progress Note ---
Date of Service May 02, 2019 Assessment & Plan (1) Left shoulder pain: (2) Leukocytosis: Septic arthritis Pt is 73 y/o F with PMH HTN, dyslipidemia, h/o thyroid induced diabetes, anxiety, mood disorder, RLS, h/o PE on Coumadin, rheumatoid arthritis, chronic pain shoulders and knees presented to ER with c/o increased L shoulder pain x 1 week. In ER patient afebrile, BP: 84, RR: 20, BP: 129/75, 92% on room air WBC: 15, H/H: 11.7/37 (baseline Hgb ~1), lactate: 2.2 Right shoulder x-ray: No acute fractures within the left shoulder. Chronic and degenerative changes as described above. CT shoulder (04/30/2019) significant for Moderate to large peripheral enhancing effusion within the glenohumeral joint with multiple septations and thickening of the synovial lining. There is also thickening and enhancement extending into the distal subscapularis muscle. Erosive changes within the glenohumeral joint, distal clavicle, and acromion are also noted. These findings were present on the 02/22/2018 chest CTA but have progressed in the interval. Therefore, this may represent a chronic septic arthritis. DDX: Septic arthritis, RA flare. DVT LUE less likely given pt's INR >10 Suspect septic right shoulder. Plan for aspiration of joint now as INR down to 1.5, Ortho consulted -In ER given NSS 500 mL bolus followed by 125 mL an hour, cefepime, vancomycin -Repeat lactate 1.7 -Blood cultures-pending -Continue cefepime, vancomycin -consider ID consult -Monitor ESR, over 90 on admission (04/30/2019) -WBC down to 8.8K from 15.7k -cont. to closely monitor -Patient is status post left shoulder aspiration yesterday (05/01), synovial fluid positive for gram-positive cocci, now s/p irrigation and debridement by orthopedics (05/02), synovitis and purulent material noted in the joint during the procedure Update: synovial fluid cltx- positive for MRSA (3) Nausea and vomiting: Complains of intermittent nausea and vomiting x 2 weeks. Last episode of emesis yesterday. Poor oral intake past 3 days. Reported upper abdominal pain prior to vomiting improved with vomiting Seen at [facility] ER on 04/25/2019 for generalized abdominal pain with CT abdomen pelvis no acute findings CXR/ABD XRAY: No acute cardiopulmonary process. No evidence for bowel obstru ction. May be secondary to underlying infection, possible sepsis -No current abdominal pain -nausea improved, pt wishes to advance her diet -Zofran PRN nausea -Clear liquids now, will advance as tolerated -Closely monitor (4) Supratherapeutic INR: (5) History of pulmonary embolism: History of PE on chronic Coumadin INR > 10. Reported epistaxis which resolved with compression. Denies hematuria, hematochezia, melena No current bleeding -In ER given vitamin K 5 mg IV -Held Coumadin, INR then down to INR -now pt is s/p procedures/surgeries, plan to restart coumadin (6) Rheumatoid arthritis: (7) Chronic pain: Chronic bilateral shoulder and knee pain Patient follows with rheumatology - Dr Shaw. Pt on Remicade, chronic prednisone 5 mg daily, fentanyl and hydrocodone. 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 A1c: 6.5 on 09/09/2018. No current medications -Monitor BSG (9) Dyslipidemia: -Continue statin (10) Anxiety: -Continue sertraline (11) Restless leg syndrome: -Continue ropinirole DVT Prophylaxis - supratherapeutic INR on admission, now reversed, SCDs Full Code as per discussion with pt Follows with Dr Becerra for routine care Subjective Patient sitting up in bed, status post procedure earlier today, she feels nauseous however otherwise well. Currently denies any fevers, chills, chest pain, shortness of breath, abdominal pain. Her left shoulder is still somewhat tender and she is having difficulty moving it Review of Systems Review of Systems: All systems reviewed & are unremarkable except as noted in HPI & below Constitutional: no fever and no chills Respiratory: no cough, no dyspnea and no pain on inspiration Cardiovascular: no chest pain, no dyspnea on exertion and no palpitations Gastrointestinal: + nausea; no abdominal pain and no vomiting Physical Exam Physical Exam: General: Elderly female sitting up in bed, in no acute distress Head: normocephalic, atraumatic Eyes: PERRL, EOM's intact, conjunctiva non-injected, anicteric ENT: normal inspection external ears, nose Neck: supple, trachea midline, non-tender Lungs: clear, no respiratory distress, no wheezing/rhonchi/rales CV: RRR, no murmur, no pretibial edema Abd: normal BS, soft, non-tender Ext: LUE: Left arm in a sling, dressings applied over left shoulder, moderate pain with any slight movement, wrist without edema and non-tender to palpation. Very limited active ROM of elbow. Able to flex and extend fingers. Distal pulses palpable, sensation to light touch intact, brisk capillary refill. No lower extremity edema, moves all extremities without difficulty Neuro: A&O x 3, no focal deficits noted, normal affect, speech fluent, no facial asymmetry, Skin: warm, dry Results & Data Vital Signs (Past 12 Hours) Vital Signs Temp Pulse Pulse Resp BP BP Pulse Ox 05/02/19 04:00 36.8 C 63 20 110/64 96 05/02/19 01:01 65 05/02/19 00:25 36.9 C 86 20 115/69 92 Laboratory Results 05/02/19 05/02/19 05/02/19 Range/Units 07:37 03:23 03:23 WBC 8.85 (4.8-10.8) K/uL RBC 3.46 L (4.2-5.4) M/uL Hgb 9.1 L (12.0-16.0) g/dL Hct 28.9 L (37-47) % MCV 83.5 (80-100) fL MCH 26.3 (25-34) pg MCHC 31.5 L (32-36) g/dL RDW Std Deviation 48.0 H (36.4-46.3) fL RDW Coeff of Karri 15.7 H (11.5-14.5) % Plt Count 359 (130-400) K/uL MPV 8.2 (7.4-10.4) fL Sodium 140 (136-145) mmol/L Potassium 3.8 D (3.5-5.1) mmol/L Chloride 110 H (98-107) mmol/L Carbon Dioxide 26 (21-32) mmol/L Anion Gap 4.0 (3-11) BUN 11 (7-18) mg/dl Creatinine 0.52 L (0.6-1.2) mg/dl Est Cr Clr Drug Dosing 80.9 ml/min Est GFR ( Amer) 110.6 Est GFR (Non-Af Amer) 95.5 BUN/Creatinine Ratio 21.4 H (10-20) Glucose 83 (70-99) mg/dl POC Glucose 77 (70-99) Estimat Average Glucose mg/dl Hemoglobin A1c (4.5-5.6) % Calcium 8.0 L (8.5-10.1) mg/dl Magnesium 1.9 (1.8-2.4) mg/dl Synovial Source Synovial Color Synovial Appearance Synovial WBC (0-200) /uL Synovial RBC /uL Synovial Polynuclear % % Synovial Mononuclear % % Synovial Crystals Vancomycin Trough (See Comment) mcg/ml 05/02/19 05/01/19 05/01/19 Range/Units 03:23 20:02 16:30 WBC (4.8-10.8) K/uL RBC (4.2-5.4) M/uL Hgb (12.0-16.0) g/dL Hct (37-47) % MCV (80-100) fL MCH (25-34) pg MCHC (32-36) g/dL RDW Std Deviation (36.4-46.3) fL RDW Coeff of Karri (11.5-14.5) % Plt Count (130-400) K/uL MPV (7.4-10.4) fL Sodium (136-145) mmol/L Potassium (3.5-5.1) mmol/L Chloride (98-107) mmol/L Carbon Dioxide (21-32) mmol/L Anion Gap (3-11) BUN (7-18) mg/dl Creatinine (0.6-1.2) mg/dl Est Cr Clr Drug Dosing ml/min Est GFR ( Amer) Est GFR (Non-Af Amer) BUN/Creatinine Ratio (10-20) Glucose (70-99) mg/dl POC Glucose 148 H 117 H (70-99) Estimat Average Glucose mg/dl Hemoglobin A1c (4.5-5.6) % Calcium (8.5-10.1) mg/dl Magnesium (1.8-2.4) mg/dl Synovial Source Synovial Color Synovial Appearance Synovial WBC (0-200) /uL Synovial RBC /uL Synovial Polynuclear % % Synovial Mononuclear % % Synovial Crystals Vancomycin Trough 20.4 (See Comment) mcg/ml 05/01/19 05/01/19 05/01/19 Range/Units 11:33 10:45 08:42 WBC (4.8-10.8) K/uL RBC (4.2-5.4) M/uL Hgb (12.0-16.0) g/dL Hct (37-47) % MCV (80-100) fL MCH (25-34) pg MCHC (32-36) g/dL RDW Std Deviation (36.4-46.3) fL RDW Coeff of Karri (11.5-14.5) % Plt Count (130-400) K/uL MPV (7.4-10.4) fL Sodium (136-145) mmol/L Potassium (3.5-5.1) mmol/L Chloride (98-107) mmol/L Carbon Dioxide (21-32) mmol/L Anion Gap (3-11) BUN (7-18) mg/dl Creatinine (0.6-1.2) mg/dl Est Cr Clr Drug Dosing ml/min Est GFR ( Amer) Est GFR (Non-Af Amer) BUN/Creatinine Ratio (10-20) Glucose (70-99) mg/dl POC Glucose 86 85 (70-99) Estimat Average Glucose mg/dl Hemoglobin A1c (4.5-5.6) % Calcium (8.5-10.1) mg/dl Magnesium (1.8-2.4) mg/dl Synovial Source OTHER Synovial Color PALE YELLOW Synovial Appearance TURBID Synovial WBC 84043 H (0-200) /uL [place] [address] /uL Synovial Polynuclear % 96.3 % Synovial Mononuclear % 3.7 % Synovial Crystals Pending Vancomycin Trough (See Comment) mcg/ml 05/01/19 05/01/19 Range/Units 07:05 07:05 WBC (4.8-10.8) K/uL RBC (4.2-5.4) M/uL Hgb (12.0-16.0) g/dL Hct (37-47) % MCV (80-100) fL MCH (25-34) pg MCHC (32-36) g/dL RDW Std Deviation (36.4-46.3) fL RDW Coeff of Karri (11.5-14.5) % Plt Count (130-400) K/uL MPV (7.4-10.4) fL Sodium 140 (136-145) mmol/L Potassium 3.3 L (3.5-5.1) mmol/L Chloride 110 H (98-107) mmol/L Carbon Dioxide 27 (21-32) mmol/L Anion Gap 3.0 (3-11) BUN 15 (7-18) mg/dl Creatinine 0.59 L (0.6-1.2) mg/dl Est Cr Clr Drug Dosing 71.3 ml/min Est GFR ( Amer) 106.1 Est GFR (Non-Af Amer) 91.6 BUN/Creatinine Ratio 25.1 H (10-20) Glucose 71 (70-99) mg/dl POC Glucose (70-99) Estimat Average Glucose 140 mg/dl Hemoglobin A1c 6.5 H (4.5-5.6) % Calcium 8.0 L (8.5-10.1) mg/dl Magnesium (1.8-2.4) mg/dl Synovial Source Synovial Color Synovial Appearance Synovial WBC (0-200) /uL Synovial RBC /uL Synovial Polynuclear % % Synovial Mononuclear % % Synovial Crystals Vancomycin Trough (See Comment) mcg/ml Medications Administered Current Inpatient Medications Hydrocodone Bitart/Acetaminophen ([place] 10/325) 1 tab PO TID PRN PRN Reason: Pain Stop: 05/14/19 20:03 Last Admin: 04/30/19 21:25 Dose: 1 tab Documented by: Atorvastatin Calcium (Lipitor) 40 mg PO DAILY [facility] Stop: 05/31/19 08:59 Last Admin: 05/01/19 09:05 Dose: 40 mg Documented by: Dextrose (Dextrose 50%) 25 - 50 ml IV UD PRN; Protocol PRN Reason: Hypoglycemia Protocol Stop: 05/31/19 08:01 Fentanyl (Duragesic) 25 mcg TD Q3D [facility] Stop: 05/15/19 08:59 Last Admin: 05/01/19 09:05 Dose: 25 mcg Documented by: Fentanyl (Duragesic) 12 mcg TD Q3D [facility] Stop: 05/15/19 08:59 Last Admin: 05/01/19 09:03 Dose: 12 mcg Documented by: Ferrous Sulfate (Feosol) 325 mg PO DAILY [facility] Stop: 05/31/19 08:59 Last Admin: 05/01/19 09:06 Dose: 325 mg Documented by: Gabapentin (Neurontin) 800 mg PO TID [facility] Stop: 05/30/19 20:59 Last Admin: 05/01/19 21:15 Dose: 800 mg Documented by: Glucagon (Glucagen) 1 mg SQ UD PRN; Protocol PRN Reason: Hypoglycemia Protocol Stop: 05/31/19 08:01 Glucose (Dex4 Glucose) 4 - 8 tabs PO UD PRN; Protocol PRN Reason: Hypoglycemia Protocol Stop: 05/31/19 08:01 Glucose (Glucose 40%) 15 - 30 gm PO UD PRN; Protocol PRN Reason: Hypoglycemia Protocol Stop: 05/31/19 08:01 Cefepime HCl 2,000 mg/ Syringe 20 mls @ 5.5 mls/min IV Q8H [facility]; Protocol Stop: 05/02/19 17:59 Last Admin: 05/02/19 01:21 Dose: 5.5 mls/min Documented by: Vancomycin HCl 1,000 mg/ (Sodium Chloride) 270 mls @ 125 mls/hr IV Q12H [facility] Stop: 06/12/19 03:59 Last Infusion: 05/02/19 07:20 Dose: Infused Documented by: Ioversol (Optiray 320 100ml) 93 ml IV ONCE PRN PRN Reason: Interaction Checking Stop: 05/04/19 20:34 Last Admin: 04/30/19 20:36 Dose: 93 ml Documented by: Miscellaneous (Fentanyl Patch Remove & Waste) 1 ea N/A Q72H [facility] Stop: 06/03/19 08:58 Miscellaneous (Fentanyl Patch Check Placement) 1 ea N/A QS [facility] Stop: 05/31/19 00:00 Last Admin: 05/02/19 01:16 Dose: 1 ea Documented by: Miscellaneous (Fentanyl Patch Remove & Waste) 1 ea N/A Q72H [facility] Stop: 06/03/19 08:58 Miscellaneous (Fentanyl Patch Check Placement) 1 ea N/A QS [facility] Stop: 05/31/19 00:00 Last Admin: 05/02/19 01:18 Dose: 1 ea Documented by: Miscellaneous (Carbohydrates For Hypoglycemia) 15 - 30 gm PO UD PRN PRN Reason: Hypoglycemia Protocol Stop: 05/31/19 08:01 Miscellaneous Information (Consult) 1 ea N/A UD PRN PRN Reason: Consult Stop: 05/30/19 16:45 Ondansetron HCl (Zofran) 4 mg IV Q6H PRN PRN Reason: Nausea Stop: 05/30/19 20:03 Last Admin: 05/01/19 06:41 Dose: 4 mg Documented by: Pantoprazole Sodium (Protonix) 40 mg PO DAILY [facility] Stop: 05/31/19 08:59 Last Admin: 05/01/19 09:07 Dose: 40 mg Documented by: Prednisone (Prednisone) 5 mg PO DAILY [facility] Stop: 05/31/19 08:59 Last Admin: 05/01/19 09:06 Dose: 5 mg Documented by: Ropinirole HCl (Requip) 0.5 mg PO HS [facility] Stop: 05/30/19 20:59 Last Admin: 05/01/19 21:16 Dose: 0.5 mg Documented by: Sertraline HCl (Zoloft) 50 mg PO DAILY [facility] Stop: 05/31/19 08:59 Last Admin: 05/01/19 09:06 Dose: 50 mg Documented by: Sucralfate (Carafate Tab) 1 gm PO ACHS [facility] Stop: 05/30/19 20:59 Last Admin: 05/01/19 21:15 Dose: 1 gm Documented by: (1) Leukocytosis Leukocytosis type: unspecified Qualified Code(s): D72.829 - Elevated white blood cell count, unspecified (2) Left shoulder pain Chronicity: chronic Qualified Code(s): M25.512 - Pain in left shoulder; G89.29 - Other chronic pain (3) Nausea and vomiting Vomiting Intractability: intractable Vomiting type: unspecified Qualified Code(s): R11.2 - Nausea with vomiting, unspecified
--- NOTE | 2019-05-02 08:27 | Pharmacy Report ---
Pharmacy Abx Dose Short Note - Date of Service May 02, 2019 - Assessment & Plan Assessment 73 year old F receiving vancomycin and cefepime for treatment of septic arthritis of R shoulder Day # 3 of antimicrobial therapy. Blood cultures with no growth to date L shoulder culture currently pending SCr remains stable Plan Vancomycin * Trough level of 20.4 mcg/mL is supratherapeutic * Change to 1000 mg IV every 14 hours - will start at 2000 tonight (when level should be ~ 17) * Goal trough level : 15 to 20 mcg/mL * Will plan to order repeat trough level with 4th dose, or sooner if SCr changes significantly Pharmacy will continue to follow and will adjust dose/frequency as necessary. Thank you.
[2019-05-02] MEDS: SUCRALFATE 1 GM TAB PO SCH ×4 (10:16→20:50)
--- NOTE | 2019-05-02 10:23 | Anesthesiology Consultation ---
Date of Service May 02, 2019 Assessment & Plan (1) Encounter for pre-operative examination: Chart Review Chart Review: Acceptable Risk for Surgery and Patient NOT seen in Pre Admission Testing Consults Requested none ASA ASA3 Proposed Anesthesia Anesthesia Type: General Risk / Benefits Reviewed With: PT / POA / Parent / Guardian, Accepts Plan and Informed Consent Obtained History Surgery Operation Date: 05/02/19 08:10 Proposed Procedures p Left Shoulder Arthroscopic Incision and Drainage - Neil Alvarenga MD Height/Weight Height: 5 ft 3 in Weight: 61.2 kg Allergies Allergy/AdvReac Type Severity Reaction Status Date / Time bee venom protein (honey bee) Allergy Severe ANAPHYLAXIS Verified 04/30/19 15:43 celecoxib Allergy Severe ANAPHYLAXIS Verified 04/30/19 15:43 rofecoxib Allergy Severe ANAPHYLAXIS Verified 04/30/19 15:43 naproxen Allergy Intermediate RASH Verified 04/30/19 15:43 oxycodone Allergy Intermediate RASH Verified 04/30/19 15:43 Penicillins Allergy Intermediate Hives Verified 04/30/19 15:43 Bactrim AdvReac Intermediate GI SYMPTOMS Verified 02/27/17 10:41 sulfamethoxazole AdvReac Intermediate GI SYMPTOMS Verified 04/30/19 15:43 trimethoprim AdvReac Intermediate GI SYMPTOMS Verified 04/30/19 15:43 clindamycin AdvReac Mild GI SYMPTOMS Verified 04/30/19 15:43 doxycycline AdvReac Mild GI SYMPTOMS Verified 04/30/19 15:43 hydrochlorothiazide AdvReac Mild Gi Symptoms Verified 04/30/19 15:43 Medications Home Medications Medication Instructions Recorded Confirmed Last Taken ferrous sulfate 325 mg PO DAILY 02/22/18 04/30/19 04/28/19 gabapentin 800 mg PO TID 02/22/18 04/30/19 04/29/19 prednisone 5 mg PO DAILY 02/22/18 04/30/19 04/28/19 ropinirole 0.5 mg PO HS 02/22/18 04/30/19 04/28/19 sertraline 50 mg PO DAILY 02/22/18 04/30/19 04/28/19 sucralfate 1 g PO ACHS 02/22/18 04/30/19 04/28/19 atorvastatin [Lipitor] 40 mg PO DAILY 04/30/19 04/30/19 04/28/19 fentanyl 37.5 mcg TOPICAL [id number] 04/30/19 04/30/19 04/28/19 hydrocodone-acetaminophen 1 - 2 tab PO TID PRN 04/30/19 04/30/19 04/29/19 omeprazole 20 mg PO DAILY 04/30/19 04/30/19 04/28/19 ondansetron HCl [Zofran] 4 mg PO Q8 PRN 04/30/19 04/30/19 04/29/19 warfarin [Jantoven] 1 mg PO DAILY 04/30/19 04/30/19 04/28/19 Active Medications Generic Name Dose Route Start Last Admin Trade Name Freq PRN Reason Stop Dose Admin Hydrocodone Bitart/Acetaminophen 1 tab 04/30/19 20:04 04/30/19 21:25 [place] 10/325 PO 05/14/19 20:03 1 tab TID PRN Administration Pain Atorvastatin Calcium 40 mg 05/01/19 09:00 05/01/19 09:05 Lipitor PO 05/31/19 08:59 40 mg DAILY MAYTE Administration Fentanyl 25 mcg 05/01/19 09:00 05/01/19 09:05 Duragesic TD 05/15/19 08:59 25 mcg Q3D MAYTE Administration Fentanyl 12 mcg 05/01/19 09:00 05/01/19 09:03 Duragesic TD 05/15/19 08:59 12 mcg Q3D MAYTE Administration Ferrous Sulfate 325 mg 05/01/19 09:00 05/01/19 09:06 Feosol PO 05/31/19 08:59 325 mg DAILY MAYTE Administration Gabapentin 800 mg 04/30/19 21:00 05/01/19 21:15 Neurontin PO 05/30/19 20:59 800 mg TID MAYTE Administration Cefepime HCl 2,000 mg/ Syringe 20 mls @ 5.5 mls/min 05/01/19 02:00 05/02/19 10:11 IV 05/02/19 17:59 5.5 mls/min Q8H MAYTE Administration Protocol Ioversol 93 ml 04/30/19 20:35 04/30/19 20:36 Optiray 320 100ml IV 05/04/19 20:34 93 ml ONCE PRN Administration Interaction Checking Miscellaneous 1 ea 05/01/19 00:00 05/02/19 10:16 Fentanyl Patch Check Placement N/A 05/31/19 00:00 1 ea QS MAYTE Administration Miscellaneous 1 ea 05/01/19 00:00 05/02/19 10:18 Fentanyl Patch Check Placement N/A 05/31/19 00:00 1 ea QS MAYTE Administration Ondansetron HCl 4 mg 04/30/19 20:04 05/01/19 06:41 Zofran IV 05/30/19 20:03 4 mg Q6H PRN Administration Nausea Pantoprazole Sodium 40 mg 05/01/19 09:00 05/01/19 09:07 Protonix PO 05/31/19 08:59 40 mg DAILY MAYTE Administration Prednisone 5 mg 05/01/19 09:00 05/01/19 09:06 Prednisone PO 05/31/19 08:59 5 mg DAILY MAYTE Administration Ropinirole HCl 0.5 mg 04/30/19 21:00 05/01/19 21:16 Requip PO 05/30/19 20:59 0.5 mg HS MAYTE Administration Sertraline HCl 50 mg 05/01/19 09:00 05/01/19 09:06 Zoloft PO 05/31/19 08:59 50 mg DAILY MAYTE Administration Sucralfate 1 gm 04/30/19 21:00 05/02/19 10:16 Carafate Tab PO 05/30/19 20:59 Not Given ACHS MAYTE NPO Date Last Intake of Fluids: 05/01/19 Time Last Intake of Fluids: 20:00 Date Last Intake of Solids: 05/01/19 Time Last Intake of Solids: 18:00 Past Medical History Medical History Anxiety (Chronic) Chronic pain Dyslipidemia (Chronic) Gastric ulcer (Chronic) GERD (gastroesophageal reflux disease) (Chronic) HTN (hypertension) (Chronic) Neuropathy Osteoarthritis (Chronic) Osteoporosis PVD (peripheral vascular disease) (Chronic) Rheumatoid arthritis (Chronic) Steroid-induced diabetes mellitus (Chronic) Exercise / Class Metabolic Activity IV < 2 Limit ADL/Bedbound Negative for chest pain or shortness of breath. Limited due to severe arthritis Past Family History Family History Other Family history of high blood pressure Past Surgical History Surgical History Femur fracture, right (Chronic) "s/p ORIF" H/O: hysterectomy History of carpal tunnel surgery of left wrist (Chronic) History of carpal tunnel surgery of right wrist (Chronic) History of skin graft (Chronic) Hx of cholecystectomy (Chronic) Hx of cholecystectomy S/P SHIRIN-BSO (Chronic) Past Anesthesia History No Hx of Anesthesia Complications History of PONV No Hx of PONV Social History Smoking Status: Former smoker tobacco type: cigarettes Do You Dip or Chew Tobacco: No Hx Alcohol Use: No Hx Substance Use: No substance use type: prescription drug Last Used Substance: Unknown Review of Systems Patient denies active symptoms of GERD. Patient was vomiting yesterday - no N/V today Physical Exam Vital Signs Last Vital Signs Temp 37.2 C 05/02/19 11:28 Pulse 65 05/02/19 11:28 Resp 18 05/02/19 11:28 BP 129/67 05/02/19 11:28 Pulse Ox 93 05/02/19 11:28 Constitutional not obese ENMT Mouth: + edentulous (Upper); no TMJ abnormality and oral opening not small Thyromental Distance: > or= 3.5 Finger Breadths Mallampati Class: II Neck normal visual inspection and + limited neck extension Respiratory normal respiratory effort Auscultation: lungs clear to auscultation bilaterally Cardiovascular Rate/Rhythm: regular rate and regular rhythm Heart Sounds: no murmur Neurologic moves all extremities Psychiatric Orientation: alert and oriented x 3 Testing Laboratory Results 05/02/19 03:23 05/02/19 03:23 PT 14.5 Seconds (9.0-12.0) H 05/01/19 07:05 INR 1.5 (0.9-1.1) H 05/01/19 07:05 APTT 86.2 Seconds (21.0-31.0) H* 04/30/19 16:11 Hemoglobin A1c 6.5 % (4.5-5.6) H 05/01/19 07:05 Urine Color Dark Yellow 04/30/19 14:45 Urine Appearance Clear (Clear) 04/30/19 14:45 Urine pH 5.0 (4.5-7.5) 04/30/19 14:45 Ur Specific [place] 1.026 (1.000-1.030) 04/30/19 14:45 Urine Protein Trace (Negative) H 04/30/19 14:45 Urine Glucose (UA) Negative (Negative) 04/30/19 14:45 Urine Ketones Negative (Negative) 04/30/19 14:45 Urine Nitrite Negative (Negative) 04/30/19 14:45 Ur Leukocyte Esterase Negative (Negative) 04/30/19 14:45 Urine WBC (Auto) 1-5 /hpf (0-5) 04/30/19 14:45 Urine RBC (Auto) 0-4 /hpf (0-4) 04/30/19 14:45 U Hyaline Cast (Auto) 5-10 /lpf (0-5) H 04/30/19 14:45 U Epithel Cells (Auto) 0-5 /lpf (0-5) 04/30/19 14:45 Urine Bacteria (Auto) Negative (Negative) 04/30/19 14:45 04/30/19 17:10 Aerobic Blood Culture - Preliminary Blood No growth in Aerobic bottle after 24 hours. Anaerobic Blood Culture - Final 04/30/19 17:30 Aerobic Blood Culture - Preliminary Blood No growth in Aerobic bottle after 24 hours. Anaerobic Blood Culture - Preliminary No growth in Anaerobic bottle after 24 hours. 05/01/19 10:45 Gram Stain - Final Shoulder,Left 05/02/19 05/02/19 05/02/19 11:36 11:35 07:37 POC Glucose 65 L* 59 L* 77 Electrocardiogram Date: 04/30/19 Findings: + NSR @ (99)
[2019-05-02] MEDS ORDERED: DEXAMETHASONE SOD INJ 4 MG/ML VIAL ONE (10:53)
[2019-05-02] MEDS ORDERED: PROPOFOL IV EMULSION 10 MG/ML 20 ML VIAL IV ONE (10:53)
[2019-05-02] MEDS ORDERED: MIDAZOLAM HCL 1 MG/ML 2ML VIAL ONE (10:53)
[2019-05-02] MEDS ORDERED: fentaNYL citrate 100 MCG/2 ML VIAL ONE (10:53)
[2019-05-02] MEDS ORDERED: LIDOCAINE HCL 2% 2 ML VIAL/AMP(20MG/ML) INFIL ONE (10:53)
[2019-05-02] MEDS ORDERED: ONDANSETRON INJ 2 MG/ML 2 ML VIAL ONE (10:53)
[2019-05-02] MEDS ORDERED: EpINEphrine HCL INJ 1 MG/ML 1ML SYRINGE ONE (11:16)
--- NOTE | 2019-05-02 11:47 | History & Physical Bridge Note ---
Date of Service May 02, 2019 History & Physical Bridge Note I have examined the patient, reviewed the History & Physical and in the interval since the performance of the History & Physical I have noted the following changes of clinical significance: no changes noted
[2019-05-02] MEDS ORDERED: ATROPINE SULFATE 0.1 MG/ML 10ML SYR IV PRN (12:06)
[2019-05-02] MEDS ORDERED: ONDANSETRON INJ 2 MG/ML 2 ML VIAL IV PRN (12:06)
[2019-05-02] MEDS ORDERED: ePHEDrine sulfate 50 MG/ML AMP IV PRN (12:06)
[2019-05-02] MEDS ORDERED: LIDOCAINE/EPINEPHRINE 1% 20 ML VIAL ONE (12:20)
[2019-05-02] MEDS ORDERED: HYDROCORTISONE SOD SUCCINATE 100 MG/2 ML VIAL ONE (12:41)
[2019-05-02] MEDS ORDERED: GLYCOPYRROLATE 0.2 MG/ML VIAL ONE (12:45)
[2019-05-02] MEDS ORDERED: SUCCINYLCHOLINE CHLORIDE 20 MG/ML 10 ML VIAL ONE (12:45)
[2019-05-02] MEDS ORDERED: ROCURONIUM BROMIDE 10 MG/ML 5 ML VIAL ONE (12:45)
[2019-05-02] MEDS ORDERED: NEOSTIGMINE METHYLSULFATE 5 MG/5 ML SYR ONE (12:45)
[2019-05-02] MEDS ORDERED: ePHEDrine sulfate 50 MG/ML SYR ONE (13:05)
--- NOTE | 2019-05-02 13:34 | Operative Report ---
Post Operative Report Pre & Post Diagnosis Operation Date: 05/02/19 08:10 Pre-Op Diagnosis: Left shoulder septic arthritis Post-Op Diagnosis: Left shoulder septic arthritis I identified the patient and participated in the time-out.: Yes Procedure Operation Date: 05/02/19 08:10 Actual Procedures p Left Shoulder Arthroscopic Incision and Drainage(Left) - Neil Alvarenga MD Surgeon Neil Alvarenga MD Litigation Examiner none Estimated Blood Loss 10 Findings Consistent with Post-Op Diagnosis Specimens cultures, gram stain Drains 1 hemovac Anesthesia Type General Complications none Disposition Accompanied Patient To Recovery: No Disposition: Recovery Room Indications The patient is a 73-year-old female with history of rheumatoid arthritis chronically on prednisone therapy. She has had chronic bilateral shoulder pain but has had significant increase left shoulder pain over the last week to 2 weeks. She has been having chills. She presented to the emergency room with increasing pain will swelling the left shoulder. White blood cell count was 15. She had a shoulder aspiration performed by 1 of my partners that demonstrated many polys with few positive gram-positive cocci seen with greater than 37,000 white blood cells. Given the bacteria seen on Gram stain elected to proceed with irrigation and debridement. We discussed that she has significant cystic change in both the glenoid as well as the humeral head. She has evidence of chronic rotator cuff tear with rotator cuff arthropathy and destruction of the acromion and some destruction of the distal. I discussed with her and her family that this may represent chronic degenerative change from chronic rotator cuff arthropathy but it may also represent chronic septic arthritis. However given the fact that she became acutely worse over the last week or 2 hopefully this represents just an acute infection. I recommended irrigation and debridement. Description of Procedure Risks, benefits and alternatives to surgery including, but not limited to, infection DVT, pain, stiffness, need for revision surgery, failure to relieve all symptoms, damage to blood vessels, damage to nerves, risk of anesthesia were discussed with the patient and they wished to proceed. The patient was identified. She has been on IV antibiotic therapy on the floor. They were transferred to the operating room and placed in the supine position and induced into general endotracheal anesthesia per the anesthesia staff. The patient was then safely transferred to the lateral decubitus position, secured by a beanbag. An axillary roll was placed. All pressure points were well- padded. The limb was placed in 10 pounds of lateral traction and then prepped and draped in the usual standard manner with ChloraPrep. The portal sites were anesthetized with 2% lidocaine with epinephrine. I made a standard posterior viewing portal made through a stab incision and then bluntly entered the glenohumeral joint. A copious amount of purulent material was expressed from the cannula and sent for culture. Then under spinal needle localization, I establish an anterior superolateral portal. There was significant synovitis and purulent material seen in the joint. I performed a complete debridement and synovectomy with a 5.5 mm shaver. There was evidence of her chronic rotator cuff tear. I used a total of 5 bags of saline. I also made a stab incision over the to decompress this region in case she was developing a geyser phenomenon. This region appeared to communicate quite easily with the joint. A deep drain was then placed. Portal sites were closed with nylon. A sterile dressing was applied and a sling placed. All needle and sponge counts were correct at the end of the procedure. The patient was transferred to the PACU in stable condition without apparent complication. I attest to the content of the Intraoperative Record and any orders documented therein. Any exceptions are noted below.
[2019-05-02] MEDS: fentaNYL citrate 100 MCG/2 ML VIAL IV PRN ×2 (13:50→13:55)
[2019-05-02] MEDS: HYDROmorphone INJ 1 MG/ML SYRINGE IV PRN ×8 (14:03→15:10)
[2019-05-02] MEDS ORDERED: ACETAMINOPHEN 1,000 MG/100 ML VIAL IV STA (14:41)
[2019-05-02] MEDS ORDERED: ACETAMINOPHEN 1000 MG/100 ML IV IV ONE (14:42)
[2019-05-02] MEDS ORDERED: MoRPHine SULFATE 10 MG/ML CARP/VIAL ONE (14:43)
[2019-05-02] MEDS: MoRPHine SULFATE 10 MG/ML CARP/VIAL IV PRN ×5 (14:45→15:05)
--- NOTE | 2019-05-02 15:05 | Anesthesiology Progress Note ---
Date of Service May 02, 2019 Anesthesia Post Procedure Vital Signs Vital Signs: Temp Pulse Pulse Pulse Resp BP BP 05/02/19 14:50 74 19 133/62 05/02/19 14:40 74 19 135/64 05/02/19 14:30 74 16 144/68 H 05/02/19 14:20 72 14 159/68 H 05/02/19 14:10 72 12 151/58 H 05/02/19 14:00 74 13 138/76 05/02/19 13:50 70 17 164/70 H 05/02/19 13:41 37.4 C 74 16 145/89 H 05/02/19 11:28 37.2 C 65 18 05/02/19 09:00 61 05/02/19 07:48 36.8 C 64 18 129/70 05/02/19 04:00 36.8 C 63 20 110/64 05/02/19 01:01 65 05/02/19 00:25 36.9 C 86 20 05/01/19 19:36 36.9 C 64 20 05/01/19 15:16 36.8 C 71 20 98/55 L BP Pulse Ox 05/02/19 14:50 99 05/02/19 14:40 100 05/02/19 14:30 97 05/02/19 14:20 100 05/02/19 14:10 100 05/02/19 14:00 100 05/02/19 13:50 100 05/02/19 13:41 100 05/02/19 11:28 129/67 93 05/02/19 09:00 05/02/19 07:48 91 05/02/19 04:00 96 05/02/19 01:01 05/02/19 00:25 115/69 92 05/01/19 19:36 104/64 93 05/01/19 15:16 91 Pain Intensity Left Shoulder: Pain Intensity: 8 Generalized: Pain Intensity: 7 Transfer of Care Handoff Completed per policy Notes Mental Status: alert / awake / arousable and participated in evaluation Patient Amnestic to Procedure: Yes Nausea / Vomiting: adequately controlled Pain: improving with treatment Airway Patency, RR, SpO2: stable & adequate BP & HR: stable & adequate Hydration State: stable & adequate Anesthetic Complications: no major complications apparent and Pt Satisfied with anesthetic care
[2019-05-02] MEDS ORDERED: bisacodyL 10 MG SUPP PR PRN (15:52)
[2019-05-02] MEDS ORDERED: MAGNESIUM HYDROXIDE SUSP 30 ML UDC PO PRN (15:52)
[2019-05-02] MEDS ORDERED: NALOXONE HCL 0.4 MG/1 ML VIAL/CARP IV PRN (15:52)
[2019-05-02] MEDS: PANTOprazole 40 MG TAB PO SCH (15:55)
[2019-05-02] MEDS: FERROUS SULFATE 325 MG TAB PO SCH (15:55)
[2019-05-02] MEDS: GABAPENTIN 800 MG TAB PO SCH ×3 (15:55→20:50)
[2019-05-02] MEDS: predniSONE 5 MG TAB PO SCH (15:55)
[2019-05-02] MEDS: ATORVASTATIN 40 MG TAB PO SCH (15:55)
[2019-05-02] MEDS: SERTRALINE HCL 50 MG TABLET PO SCH (15:56)
[2019-05-02] MEDS: SODIUM CHLORIDE 0.9% 1000ML 1,000 ML IV SCH (16:23)
[2019-05-02] MEDS ORDERED: Nursing to Pharmacy Communication ONE (18:17)
[2019-05-02] MEDS: ROPINIROLE HCL 0.25 MG TABLET PO SCH (20:51)
[2019-05-02] MEDS: DOCUSATE SODIUM 100 MG CAP PO SCH (20:54)
[2019-05-03] MEDS: SODIUM CHLORIDE 0.9% 1000ML 1,000 ML IV SCH (04:55)
[2019-05-03] MEDS: SUCRALFATE 1 GM TAB PO SCH ×4 (08:11→21:00)
[2019-05-03] MEDS: VANCOMYCIN HCL 1,000 MG in SODIUM CHLORIDE 0.9% 250 ML IV SCH (08:20)
[2019-05-03] MEDS: GABAPENTIN 800 MG TAB PO SCH ×3 (08:21→21:00)
[2019-05-03] MEDS: ATORVASTATIN 40 MG TAB PO SCH (08:21)
[2019-05-03] MEDS: DOCUSATE SODIUM 100 MG CAP PO SCH ×2 (08:21→21:00)
[2019-05-03] MEDS: SERTRALINE HCL 50 MG TABLET PO SCH (08:21)
[2019-05-03] MEDS: FERROUS SULFATE 325 MG TAB PO SCH (08:21)
[2019-05-03] MEDS: predniSONE 5 MG TAB PO SCH (08:21)
[2019-05-03] MEDS: MULTIVITAMIN TAB PO SCH (08:21)
[2019-05-03] MEDS: PANTOprazole 40 MG TAB PO SCH (08:22)
[2019-05-03 08:34] LABS: Basophils # (auto) 0.01 K/uL (0-0.2); Basophils % (auto) 0.1 %; Eosinophils # (auto) 0.01 K/uL (0-0.5); Eosinophils % (auto) 0.1 %; Hematocrit (blood only) 27.7 % (37-47); Hemoglobin 8.7 g/dL (12.0-16.0); Immature Granulocytes # (auto) 0.38 K/uL (0.00-0.02); Immature Granulocytes % (auto) 3.7 %; Lymphocytes # (auto) 1.19 K/uL (1.2-3.4); Lymphocytes % (auto) 11.5 %; Mean Corpuscular Hgb Conc 31.4 g/dL (32-36); Mean Corpuscular Volume 82.9 fL (80-100); Mean Platelet Volume 8.1 fL (7.4-10.4); Monocytes # (auto) 0.61 K/uL (0.11-0.59); Monocytes % (auto) 5.9 %; Neutrophils # (auto) 8.19 K/uL (1.4-6.5); Neutrophils % (auto) 78.7 %; Platelet Count 389 K/uL (130-400); RDW Coefficient of Variation 15.4 % (11.5-14.5); RDW Standard Deviation 47.3 fL (36.4-46.3); Red Blood Count 3.34 M/uL (4.2-5.4); White Blood Count 10.39 K/uL (4.8-10.8)
[2019-05-03 09:09] LABS: BUN Creatinine Ratio 21.1 (10-20); Calcium 8.1 mg/dl (8.5-10.1); Creatinine Clr Calc Pharmacy 84.1 ml/min; Est GFR (African American) 112.1; Est GFR (Non-African American) 96.7; Potassium 3.9 mmol/L (3.5-5.1)
--- NOTE | 2019-05-03 09:13 | Orthopedic Progress Note ---
Date of Service May 03, 2019 Assessment & Plan (1) Septic joint of left shoulder region: Cultures are currently growing out MRSA. She is receiving vancomycin every 14 hours. She states that a PICC line has been placed. Continue IV antibiotics as per infectious disease team. Plan for Hemovac discontinuation as drainage lessens. Subjective Postop day 1 status post left shoulder arthroscopic I&D Patient is currently sitting up in bed awake and alert. She appears comfortable. She has no overt complaints at this time. Pain is controlled. Physical Exam Physical Exam: Dressings are clean, dry, and intact. Hemovac drain is functioning and drain 60 cc from the previous shift. She has good range of motion of her left wrist and fingers. No overt decreased sensation. Cap refills less than 2 seconds. Results & Data Vital Signs (Past 12 Hours) Vital Signs Temp Pulse Pulse Resp BP Pulse Ox 05/03/19 07:43 36.4 C L 47 L 18 110/65 97 05/03/19 04:00 36.4 C L 55 L 20 131/72 95 05/03/19 03:57 59 L 05/02/19 23:07 36.5 C 62 18 121/77 97 Laboratory Results Laboratory Results WBC 10.39 K/uL (4.8-10.8) 05/03/19 08:22 RBC 3.34 M/uL (4.2-5.4) L 05/03/19 08:22 Hgb 8.7 g/dL (12.0-16.0) L 05/03/19 08:22 Hct 27.7 % (37-47) L 05/03/19 08:22 MCV 82.9 fL (80-100) 05/03/19 08:22 MCH 26.0 pg (25-34) 05/03/19 08:22 MCHC 31.4 g/dL (32-36) L 05/03/19 08:22 RDW Std Deviation 47.3 fL (36.4-46.3) H 05/03/19 08:22 RDW Coeff of Karri 15.4 % (11.5-14.5) H 05/03/19 08:22 Plt Count 389 K/uL (130-400) 05/03/19 08:22 MPV 8.1 fL (7.4-10.4) 05/03/19 08:22 Immature Gran % (Auto) 3.7 % 05/03/19 08:22 Neut % (Auto) 78.7 % 05/03/19 08:22 Lymph % (Auto) 11.5 % 05/03/19 08:22 [place] % (Auto) 5.9 % 05/03/19 08:22 Eos % (Auto) 0.1 % 05/03/19 08:22 Baso % (Auto) 0.1 % 05/03/19 08:22 Immature Gran # (Auto) 0.38 K/uL (0.00-0.02) H 05/03/19 08:22 Neut # (Auto) 8.19 K/uL (1.4-6.5) H 05/03/19 08:22 Lymph # (Auto) 1.19 K/uL (1.2-3.4) L 05/03/19 08:22 [place] # (Auto) 0.61 K/uL (0.11-0.59) H 05/03/19 08:22 Eos # (Auto) 0.01 K/uL (0-0.5) 05/03/19 08:22 Baso # (Auto) 0.01 K/uL (0-0.2) 05/03/19 08:22 ESR > 90 mm/hr (0-21) H 04/30/19 15:01 PT 14.5 Seconds (9.0-12.0) H 05/01/19 07:05 INR 1.5 (0.9-1.1) H 05/01/19 07:05 APTT 86.2 Seconds (21.0-31.0) H* 04/30/19 16:11 PTT Ratio 3.2 04/30/19 16:11 Sodium 140 mmol/L (136-145) 05/03/19 08:22 Potassium 3.9 mmol/L (3.5-5.1) 05/03/19 08:22 Chloride 110 mmol/L (98-107) H 05/03/19 08:22 Carbon Dioxide 26 mmol/L (21-32) 05/03/19 08:22 Anion Gap 5.0 (3-11) 05/03/19 08:22 BUN 11 mg/dl (7-18) 05/03/19 08:22 Creatinine 0.50 mg/dl (0.6-1.2) L 05/03/19 08:22 Est Cr Clr Drug Dosing 84.1 ml/min 05/03/19 08:22 Est GFR ( Amer) 112.1 05/03/19 08:22 Est GFR (Non-Af Amer) 96.7 05/03/19 08:22 BUN/Creatinine Ratio 21.1 (10-20) H 05/03/19 08:22 Glucose 103 mg/dl (70-99) H 05/03/19 08:22 POC Glucose 108 (70-99) H 05/03/19 07:37 Estimat Average Glucose 140 mg/dl 05/01/19 07:05 Hemoglobin A1c 6.5 % (4.5-5.6) H 05/01/19 07:05 Lactate 1.7 mmol/L (0.4-2.0) 04/30/19 17:30 Calcium 8.1 mg/dl (8.5-10.1) L 05/03/19 08:22 Magnesium 1.9 mg/dl (1.8-2.4) 05/02/19 03:23 Total Bilirubin 0.4 mg/dl (0.2-1) 04/30/19 15:01 Direct Bilirubin 0.1 mg/dl (0-0.2) 04/30/19 15:01 AST 24 U/L (15-37) 04/30/19 15:01 ALT 19 U/L (12-78) 04/30/19 15:01 Alkaline Phosphatase 193 U/L (45-117) H 04/30/19 15:01 Troponin I < 0.015 ng/ml (0-0.045) 04/30/19 15:01 Total Protein 7.4 gm/dl (6.4-8.2) 04/30/19 15:01 Albumin 1.8 gm/dl (3.4-5.0) L 04/30/19 15:01 Lipase 34 U/L (73-393) L 04/30/19 15:01 Urine Color Dark Yellow 04/30/19 14:45 Urine Appearance Clear (Clear) 04/30/19 14:45 Urine pH 5.0 (4.5-7.5) 04/30/19 14:45 Ur Specific [place] 1.026 (1.000-1.030) 04/30/19 14:45 Urine Protein Trace (Negative) H 04/30/19 14:45 Urine Glucose (UA) Negative (Negative) 04/30/19 14:45 Urine Ketones Negative (Negative) 04/30/19 14:45 Urine Blood Negative (Negative) 04/30/19 14:45 Urine Nitrite Negative (Negative) 04/30/19 14:45 Urine Bilirubin Negative (Negative) 04/30/19 14:45 Urine Urobilinogen Negative (Negative) 04/30/19 14:45 Ur Leukocyte Esterase Negative (Negative) 04/30/19 14:45 Urine WBC (Auto) 1-5 /hpf (0-5) 04/30/19 14:45 Urine RBC (Auto) 0-4 /hpf (0-4) 04/30/19 14:45 U Hyaline Cast (Auto) 5-10 /lpf (0-5) H 04/30/19 14:45 U Epithel Cells (Auto) 0-5 /lpf (0-5) 04/30/19 14:45 Urine Bacteria (Auto) Negative (Negative) 04/30/19 14:45 Synovial Source OTHER 05/01/19 10:45 Synovial Color PALE YELLOW 05/01/19 10:45 Synovial Appearance TURBID 05/01/19 10:45 Synovial WBC 50852 /uL (0-200) H 05/01/19 10:45 Synovial RBC 93060 /uL 05/01/19 10:45 Synovial Polynuclear % 96.3 % 05/01/19 10:45 Synovial Mononuclear % 3.7 % 05/01/19 10:45 Synovial Crystals 05/01/19 10:45 Vancomycin Trough 20.4 mcg/ml (See Comment) 05/02/19 03:23 Influenza Type A (PCR) Neg for Influ A (Neg) 04/30/19 15:03 Influenza Type B (PCR) Neg for Influ B (Neg) 04/30/19 15:03 Diagnostic Findings Left shoulder Aspirate Name: ANKITA SOL Acct: [id number] Status: ADM [place] : 1945 [facility] [place]: 04/30/19 Age: 73 Sex: F Dis Date: Loc: [address]/Bed: [id number] Spec: [id number] Collected: 05/01/19-1044 Received: 05/01/19-[address]: rBennen Cardozo Copy To: Alesha Zhao M.D. Source: Shoulder,Left OV Order: Ordered: Aer/Shereen Cult/Sm Procedure Result Verified Site Gram Stain Final 05/01/19-1143 Gram Stain Result Many Polys Few Gram Positive Cocci Phoned results to GHAZALA MURCIA on 05/01/19 at 1144 by Goyo Davis and results were verbalized back. Aero/Shereen Cult Preliminary 05/03/19-0804 Organism 1 Staph aureus MRSA Quantity Moderate Sens Sensitivities to Follow Sensitivity results indicate a Methicillin-Resistant Staph aureus. Phoned to NAVEEN ELENA on 05/03/19 at 0713 by Trudy Cuellar. Results were verbalized back. MRSA RX M.I.C. --- --------- Clindamycin R >4 Daptomycin S <=0.5 Erythromycin R >4 Oxacillin R >2 Rifampin S <=1 Tetracycline S <=4 Trimeth/Sulfa S <=0.5/9.5 Vancomycin S 2 S = SENSITIVE I = INTERMEDIATE R = RESISTANT
--- NOTE | 2019-05-03 10:42 | Hospitalist Progress Note ---
Date of Service May 03, 2019 Assessment & Plan (1) Left shoulder pain: (2) Leukocytosis: Septic arthritis Pt is 73 y/o F with PMH HTN, dyslipidemia, h/o thyroid induced diabetes, anxiety, mood disorder, RLS, h/o PE on Coumadin, rheumatoid arthritis, chronic pain shoulders and knees presented to ER with c/o increased L shoulder pain x 1 week. In ER patient afebrile, BP: 84, RR: 20, BP: 129/75, 92% on room air WBC: 15, H/H: 11.7/37 (baseline Hgb ~1), lactate: 2.2 Right shoulder x-ray: No acute fractures within the left shoulder. Chronic and degenerative changes as described above. CT shoulder (04/30/2019) significant for Moderate to large peripheral enhancing effusion within the glenohumeral joint with multiple septations and thickening of the synovial lining. There is also thickening and enhancement extending into the distal subscapularis muscle. Erosive changes within the glenohumeral joint, distal clavicle, and acromion are also noted. These findings were present on the 02/22/2018 chest CTA but have progressed in the interval. Therefore, this may represent a chronic septic arthritis. DDX: Septic arthritis, RA flare. DVT LUE less likely given pt's INR >10 Suspect septic right shoulder. Plan for aspiration of joint, INR down to 1.5, Ortho consulted -In ER given NSS 500 mL bolus followed by 125 mL an hour, cefepime, vancomycin -Repeat lactate 1.7 -Blood cultures-Negative -Synovial fluid cltx - positive for MRSA -Started on cefepime, vancomycin initially -ID consulted, now on Daptomycin, plan for at least 21 days since I&D by ortho -While on daptomycin, patient needs weekly CBC, CMP, ESR, CPK, labs to be sent to Dr. Pennie Owen (infectious diseases) -Monitor ESR, over 90 on admission (04/30/2019) -Leukocytosis with WBC of 15.7k on admission, now improved -cont. to closely monitor -Patient is status post left shoulder aspiration (05/01), synovial fluid positive for MRSA and s/p irrigation and debridement by orthopedics (05/02), synovitis and purulent material noted in the joint during the procedure (3) Nausea and vomiting: Resolved Complained of intermittent nausea and vomiting x 2 weeks. Last episode of emesis yesterday. Poor oral intake past 3 days. Reported upper abdominal pain prior to vomiting improved with vomiting Seen at [facility] ER on 04/25/2019 for generalized abdominal pain with CT abdomen pelvis no acute findings CXR/ABD XRAY: No acute cardiopulmonary process. No evidence for bowel obstruction. May be secondary to underlying infection, possible sepsis -No current abdominal pain -nausea improved, pt wishes to advance her diet -Zofran PRN nausea -Clear liquids now, will advance as tolerated -Closely monitor (4) Supratherapeutic INR: (5) History of pulmonary embolism: History of PE on chronic Coumadin INR > 10 on admission. Reported epistaxis which resolved with compression. Denies hematuria, hematochezia, melena No current bleeding -In ER given vitamin K 5 mg IV -Held Coumadin, INR then down to INR 1.5 - underwent procedures -now pt is s/p procedures/surgeries, plan restart her home coumadin (6) Rheumatoid arthritis: (7) Chronic pain: Chronic bilateral shoulder and knee pain Patient follows with rheumatology - Dr Shaw. Pt on Remicade, chronic prednisone 5 mg daily, fentanyl and hydrocodone. 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 A1c: 6.5 on 09/09/2018. No current medications -Monitor BSG (9) Dyslipidemia: -Continue statin (10) Anxiety: -Continue sertraline (11) Restless leg syndrome: -Continue ropinirole DVT Prophylaxis - supratherapeutic INR on admission, now reversed, SCDs Full Code as per discussion with pt Follows with Dr Becerra for routine care Subjective Patient sitting up in bed, in NAD. Currently denies any fevers, chills, chest pain, shortness of breath, abdominal pain. Nausea is improved, she is inquiring about food. Shoulder pain much improved. L arm in sling. Family at the bedside. Review of Systems Review of Systems: All systems reviewed & are unremarkable except as noted in HPI & below Constitutional: no fever and no chills Respiratory: no cough, no dyspnea and no pain on inspiration Cardiovascular: no chest pain and no palpitations Gastrointestinal: + nausea (improved); no abdominal pain and no vomiting Physical Exam Physical Exam: General: Elderly female sitting up in bed, in no acute distress Head: normocephalic, atraumatic Eyes: PERRL, EOM's intact, conjunctiva non-injected, anicteric ENT: normal inspection external ears, nose Neck: supple, trachea midline, non-tender Lungs: clear, no respiratory distress, no wheezing/rhonchi/rales CV: RRR, no murmur, no pretibial edema Abd: normal BS, soft, non-tender Ext: LUE: Left arm in a sling, dressings applied over left shoulder, minimal pain with movement, wrist without edema and non-tender to palpation. Able to flex and extend fingers. Distal pulses palpable, sensation to light touch intact, brisk capillary refill. No lower extremity edema, moves lower extremities without difficulty Neuro: A&O x 3, no focal deficits noted, normal affect, speech fluent, no facial asymmetry, Skin: warm, dry Results & Data Vital Signs (Past 12 Hours) Vital Signs Temp Pulse Pulse Resp BP Pulse Ox 05/03/19 10:13 58 L 05/03/19 07:43 36.4 C L 47 L 18 110/65 97 05/03/19 04:00 36.4 C L 55 L 20 131/72 95 05/03/19 03:57 59 L 05/02/19 23:07 36.5 C 62 18 121/77 97 Laboratory Results 05/03/19 05/03/19 05/03/19 Range/Units 08:22 08:22 07:37 WBC 10.39 (4.8-10.8) K/uL RBC 3.34 L (4.2-5.4) M/uL Hgb 8.7 L (12.0-16.0) g/dL Hct 27.7 L (37-47) % MCV 82.9 (80-100) fL MCH 26.0 (25-34) pg MCHC 31.4 L (32-36) g/dL RDW Std Deviation 47.3 H (36.4-46.3) fL RDW Coeff of Karri 15.4 H (11.5-14.5) % Plt Count 389 (130-400) K/uL MPV 8.1 (7.4-10.4) fL Immature Gran % (Auto) 3.7 % Neut % (Auto) 78.7 % Lymph % (Auto) 11.5 % Thomas % (Auto) 5.9 % Eos % (Auto) 0.1 % Baso % (Auto) 0.1 % Immature Gran # (Auto) 0.38 H (0.00-0.02) K/uL Neut # (Auto) 8.19 H (1.4-6.5) K/uL Lymph # (Auto) 1.19 L (1.2-3.4) K/uL Thomas # (Auto) 0.61 H (0.11-0.59) K/uL Eos # (Auto) 0.01 (0-0.5) K/uL Baso # (Auto) 0.01 (0-0.2) K/uL Sodium 140 (136-145) mmol/L Potassium 3.9 (3.5-5.1) mmol/L Chloride 110 H (98-107) mmol/L Carbon Dioxide 26 (21-32) mmol/L Anion Gap 5.0 (3-11) BUN 11 (7-18) mg/dl Creatinine 0.50 L (0.6-1.2) mg/dl Est Cr Clr Drug Dosing 84.1 ml/min Est GFR ( Amer) 112.1 Est GFR (Non-Af Amer) 96.7 BUN/Creatinine Ratio 21.1 H (10-20) Glucose 103 H (70-99) mg/dl POC Glucose 108 H (70-99) Calcium 8.1 L (8.5-10.1) mg/dl Synovial Crystals 05/02/19 05/02/19 05/02/19 Range/Units 20:12 16:27 13:55 WBC (4.8-10.8) K/uL RBC (4.2-5.4) M/uL Hgb (12.0-16.0) g/dL Hct (37-47) % MCV (80-100) fL MCH (25-34) pg MCHC (32-36) g/dL RDW Std Deviation (36.4-46.3) fL RDW Coeff of Karri (11.5-14.5) % Plt Count (130-400) K/uL MPV (7.4-10.4) fL Immature Gran % (Auto) % Neut % (Auto) % Lymph % (Auto) % Thomas % (Auto) % Eos % (Auto) % Baso % (Auto) % Immature Gran # (Auto) (0.00-0.02) K/uL Neut # (Auto) (1.4-6.5) K/uL Lymph # (Auto) (1.2-3.4) K/uL Thomas # (Auto) (0.11-0.59) K/uL Eos # (Auto) (0-0.5) K/uL Baso # (Auto) (0-0.2) K/uL Sodium (136-145) mmol/L Potassium (3.5-5.1) mmol/L Chloride (98-107) mmol/L Carbon Dioxide (21-32) mmol/L Anion Gap (3-11) BUN (7-18) mg/dl Creatinine (0.6-1.2) mg/dl Est Cr Clr Drug Dosing ml/min Est GFR ( Amer) Est GFR (Non-Af Amer) BUN/Creatinine Ratio (10-20) Glucose (70-99) mg/dl POC Glucose 193 H 149 H 124 H (70-99) Calcium (8.5-10.1) mg/dl Synovial Crystals 05/02/19 05/02/19 05/01/19 Range/Units 11:36 11:35 10:45 WBC (4.8-10.8) K/uL RBC (4.2-5.4) M/uL Hgb (12.0-16.0) g/dL Hct (37-47) % MCV (80-100) fL MCH (25-34) pg MCHC (32-36) g/dL RDW Std Deviation (36.4-46.3) fL RDW Coeff of Karri (11.5-14.5) % Plt Count (130-400) K/uL MPV (7.4-10.4) fL Immature Gran % (Auto) % Neut % (Auto) % Lymph % (Auto) % Thomas % (Auto) % Eos % (Auto) % Baso % (Auto) % Immature Gran # (Auto) (0.00-0.02) K/uL Neut # (Auto) (1.4-6.5) K/uL Lymph # (Auto) (1.2-3.4) K/uL Thomas # (Auto) (0.11-0.59) K/uL Eos # (Auto) (0-0.5) K/uL Baso # (Auto) (0-0.2) K/uL Sodium (136-145) mmol/L Potassium (3.5-5.1) mmol/L Chloride (98-107) mmol/L Carbon Dioxide (21-32) mmol/L Anion Gap (3-11) BUN (7-18) mg/dl Creatinine (0.6-1.2) mg/dl Est Cr Clr Drug Dosing ml/min Est GFR ( Amer) Est GFR (Non-Af Amer) BUN/Creatinine Ratio (10-20) Glucose (70-99) mg/dl POC Glucose 65 L* 59 L* (70-99) Calcium (8.5-10.1) mg/dl Synovial Crystals Medications Administered Current Inpatient Medications Hydrocodone Bitart/Acetaminophen ([place] 10/325) 1 tab PO TID PRN PRN Reason: Pain Stop: 05/14/19 20:03 Last Admin: 04/30/19 21:25 Dose: 1 tab Documented by: Atorvastatin Calcium (Lipitor) 40 mg PO DAILY [facility] Stop: 05/31/19 08:59 Last Admin: 05/03/19 08:21 Dose: 40 mg Documented by: Bisacodyl (Dulcolax) 10 mg [place] DAILY PRN PRN Reason: Constipation Stop: 06/01/19 15:51 Dextrose (Dextrose 50%) 25 - 50 ml IV UD PRN; Protocol PRN Reason: Hypoglycemia Protocol Stop: 05/31/19 08:01 Docusate Sodium (Colace) 100 mg PO BID [facility] Stop: 06/01/19 20:59 Last Admin: 05/03/19 08:21 Dose: 100 mg Documented by: Fentanyl (Duragesic) 25 mcg TD Q3D [facility] Stop: 05/15/19 08:59 Last Admin: 05/01/19 09:05 Dose: 25 mcg Documented by: Fentanyl (Duragesic) 12 mcg TD Q3D [facility] Stop: 05/15/19 08:59 Last Admin: 05/01/19 09:03 Dose: 12 mcg Documented by: Ferrous Sulfate (Feosol) 325 mg PO DAILY [facility] Stop: 05/31/19 08:59 Last Admin: 05/03/19 08:21 Dose: 325 mg Documented by: Gabapentin (Neurontin) 800 mg PO TID [facility] Stop: 05/30/19 20:59 Last Admin: 05/03/19 08:21 Dose: 800 mg Documented by: Glucagon (Glucagen) 1 mg SQ UD PRN; Protocol PRN Reason: Hypoglycemia Protocol Stop: 05/31/19 08:01 Glucose (Dex4 Glucose) 4 - 8 tabs PO UD PRN; Protocol PRN Reason: Hypoglycemia Protocol Stop: 05/31/19 08:01 Glucose (Glucose 40%) 15 - 30 gm PO UD PRN; Protocol PRN Reason: Hypoglycemia Protocol Stop: 05/31/19 08:01 Hydromorphone HCl (Dilaudid) 0.25 mg IV Q4H PRN PRN Reason: Pain Stop: 05/16/19 15:51 Vancomycin HCl 1,000 mg/ (Sodium Chloride) 270 mls @ 125 mls/hr IV Q14H [facility] Stop: 06/10/19 19:59 Last Infusion: 05/03/19 10:32 Dose: Infused Documented by: Ioversol (Optiray 320 100ml) 93 ml IV ONCE PRN PRN Reason: Interaction Checking Stop: 05/04/19 20:34 Last Admin: 04/30/19 20:36 Dose: 93 ml Documented by: Magnesium Hydroxide (Milk Of Magnesia) 30 ml PO Q6H PRN PRN Reason: Constipation Stop: 06/01/19 15:51 Miscellaneous (Fentanyl Patch Remove & Waste) 1 ea N/A Q72H [facility] Stop: 06/03/19 08:58 Miscellaneous (Fentanyl Patch Check Placement) 1 ea N/A QS [facility] Stop: 05/31/19 00:00 Last Admin: 05/02/19 10:16 Dose: 1 ea Documented by: Miscellaneous (Fentanyl Patch Remove & Waste) 1 ea N/A Q72H [facility] Stop: 06/03/19 08:58 Miscellaneous (Fentanyl Patch Check Placement) 1 ea N/A QS [facility] Stop: 05/31/19 00:00 Last Admin: 05/02/19 10:18 Dose: 1 ea Documented by: Miscellaneous (Carbohydrates For Hypoglycemia) 15 - 30 gm PO UD PRN PRN Reason: Hypoglycemia Protocol Stop: 05/31/19 08:01 Miscellaneous Information (Consult) 1 ea N/A UD PRN PRN Reason: Consult Stop: 05/30/19 16:45 Multivitamins (Multivitamin Tab) 1 tab PO QAM [facility] Stop: 06/02/19 08:59 Last Admin: 05/03/19 08:21 Dose: 1 tab Documented by: Naloxone HCl (Narcan) 0.1 mg IV Q5M PRN PRN Reason: Oversedation/Resp Depression Stop: 06/01/19 15:51 Ondansetron HCl (Zofran) 4 mg IV Q6H PRN PRN Reason: Nausea Stop: 05/30/19 20:03 Last Admin: 05/01/19 06:41 Dose: 4 mg Documented by: Pantoprazole Sodium (Protonix) 40 mg PO DAILY [facility] Stop: 05/31/19 08:59 Last Admin: 05/03/19 08:22 Dose: 40 mg Documented by: Prednisone (Prednisone) 5 mg PO DAILY [facility] Stop: 05/31/19 08:59 Last Admin: 05/03/19 08:21 Dose: 5 mg Documented by: Ropinirole HCl (Requip) 0.5 mg PO HS [facility] Stop: 05/30/19 20:59 Last Admin: 05/02/19 20:51 Dose: 0.5 mg Documented by: Sertraline HCl (Zoloft) 50 mg PO DAILY [facility] Stop: 05/31/19 08:59 Last Admin: 05/03/19 08:21 Dose: 50 mg Documented by: Sucralfate (Carafate Tab) 1 gm PO ACHS [facility] Stop: 05/30/19 20:59 Last Admin: 05/03/19 08:11 Dose: Not Given Documented by: (1) Leukocytosis Leukocytosis type: unspecified Qualified Code(s): D72.829 - Elevated white blood cell count, unspecified (2) Left shoulder pain Chronicity: chronic Qualified Code(s): M25.512 - Pain in left shoulder; G89.29 - Other chronic pain (3) Nausea and vomiting Vomiting Intractability: intractable Vomiting type: unspecified Qualified Code(s): R11.2 - Nausea with vomiting, unspecified
[2019-05-03] MEDS: ONDANSETRON INJ 2 MG/ML 2 ML VIAL IV PRN (10:59)
--- NOTE | 2019-05-03 11:09 | Anesthesiology Progress Note ---
Date of Service May 03, 2019 Anesthesia Post Procedure Vital Signs Vital Signs: Temp Pulse Pulse Pulse Resp BP BP 05/03/19 10:13 58 L 05/03/19 07:43 36.4 C L 47 L 18 110/65 05/03/19 04:00 36.4 C L 55 L 20 131/72 05/03/19 03:57 59 L 05/02/19 23:07 36.5 C 62 18 121/77 05/02/19 20:30 69 05/02/19 19:42 36.4 C L 70 18 127/66 05/02/19 18:14 36.3 C L 64 16 137/77 05/02/19 17:04 36.5 C 66 12 113/66 05/02/19 16:27 36.4 C L 63 12 120/75 05/02/19 16:00 36.4 C L 68 12 121/74 05/02/19 15:52 36.4 C L 73 12 122/72 05/02/19 15:30 36.8 C 67 16 114/54 L 05/02/19 15:20 36.8 C 70 16 113/69 05/02/19 15:10 36.8 C 67 19 123/69 05/02/19 15:00 72 19 132/63 05/02/19 14:50 74 19 133/62 05/02/19 14:40 74 19 135/64 05/02/19 14:30 74 16 144/68 H 05/02/19 14:20 72 14 159/68 H 05/02/19 14:10 72 12 151/58 H 05/02/19 14:00 74 13 138/76 05/02/19 13:50 70 17 164/70 H 05/02/19 13:41 37.4 C 74 16 145/89 H 05/02/19 11:28 37.2 C 65 18 129/67 Pulse Ox 05/03/19 10:13 05/03/19 07:43 97 05/03/19 04:00 95 05/03/19 03:57 05/02/19 23:07 97 05/02/19 20:30 05/02/19 19:42 95 05/02/19 18:14 93 05/02/19 17:04 94 05/02/19 16:27 92 05/02/19 16:00 96 05/02/19 15:52 91 05/02/19 15:30 98 05/02/19 15:20 100 05/02/19 15:10 100 05/02/19 15:00 100 05/02/19 14:50 99 05/02/19 14:40 100 05/02/19 14:30 97 05/02/19 14:20 100 05/02/19 14:10 100 05/02/19 14:00 100 05/02/19 13:50 100 05/02/19 13:41 100 05/02/19 11:28 93 Pain Intensity Left Shoulder: Pain Intensity: 6 Generalized: Pain Intensity: 7 Notes Mental Status: alert / awake / arousable and participated in evaluation Patient Amnestic to Procedure: Yes Nausea / Vomiting: adequately controlled Pain: adequately controlled Airway Patency, RR, SpO2: stable & adequate BP & HR: stable & adequate Hydration State: stable & adequate Anesthetic Complications: no major complications apparent
[2019-05-03 11:35] LABS: INR 1.5 (0.9-1.1); Prothrombin Time 15.1 Seconds (9.0-12.0)
--- NOTE | 2019-05-03 14:07 | Infectious Disease Consult ---
Date of Consultation May 03, 2019 Assessment & Plan (1) Septic joint of left shoulder region: will change to dapto due to [place] 2 for vanco. will need 21 days min IV abx from time of OR, would prefer IV dapto if able. alternative would be 2 doses of Dalvance at [facility]. she is agreeable. If insurance approval for home IV abx ok for picc as blood cultures remain negative. will need weekly cbc, cmp, esr, cpk while on therapy. continue local wound care. can follow with ID post d/c. History of Present Illness Attending Physician: Rohan Corbin MD pt admitted with left shoulder pain for 1 week. per H&P pt was seen in another ER on 04/[address] reported as normal, d/c home. continued pain. repeat CT on showed large effusion and chronic septic arthritis, she has I&D on 05/01 - 37,710 wbc 96% N, cultures grew MRSA, vanco [place]=2. She is on vanco and tolerating well. 04/30 blood cultures remain negative. afebrile since admission, wbc 15 initially, now 10. ESR >90, creat 0.9. She is feeling better. less pain overall but still some pain with movement. denies trauma. family at bedside. no f/c. no open wounds, no abd pain, no n/v/d. anxious to go home. no cp, sob, cough. no gu symptoms, ua negative. Allergies Allergy/AdvReac Type Severity Reaction Status Date / Time bee venom protein (honey bee) Allergy Severe ANAPHYLAXIS Verified 04/30/19 15:43 celecoxib Allergy Severe ANAPHYLAXIS Verified 04/30/19 15:43 rofecoxib Allergy Severe ANAPHYLAXIS Verified 04/30/19 15:43 naproxen Allergy Intermediate RASH Verified 04/30/19 15:43 oxycodone Allergy Intermediate RASH Verified 04/30/19 15:43 Penicillins Allergy Intermediate Hives Verified 04/30/19 15:43 Bactrim AdvReac Intermediate GI SYMPTOMS Verified 02/27/17 10:41 sulfamethoxazole AdvReac Intermediate GI SYMPTOMS Verified 04/30/19 15:43 trimethoprim AdvReac Intermediate GI SYMPTOMS Verified 04/30/19 15:43 clindamycin AdvReac Mild GI SYMPTOMS Verified 04/30/19 15:43 doxycycline AdvReac Mild GI SYMPTOMS Verified 04/30/19 15:43 hydrochlorothiazide AdvReac Mild Gi Symptoms Verified 04/30/19 15:43 Home Medications Home Medications Medication Instructions Recorded Confirmed Type ferrous sulfate 325 mg PO DAILY 02/22/18 04/30/19 History gabapentin 800 mg PO TID 02/22/18 04/30/19 History prednisone 5 mg PO DAILY 02/22/18 04/30/19 History ropinirole 0.5 mg PO HS 02/22/18 04/30/19 History sertraline 50 mg PO DAILY 02/22/18 04/30/19 History sucralfate 1 g PO ACHS 02/22/18 04/30/19 History atorvastatin [Lipitor] 40 mg PO DAILY 04/30/19 04/30/19 History fentanyl 37.5 mcg TOPICAL [id number] 04/30/19 04/30/19 History hydrocodone-acetaminophen 1 - 2 tab PO TID PRN 04/30/19 04/30/19 History omeprazole 20 mg PO DAILY 04/30/19 04/30/19 History ondansetron HCl [Zofran] 4 mg PO Q8 PRN 04/30/19 04/30/19 History warfarin [Jantoven] 1 mg PO DAILY 04/30/19 04/30/19 History Patient History Medical History Anxiety (Chronic) Chronic pain Dyslipidemia (Chronic) Gastric ulcer (Chronic) GERD (gastroesophageal reflux disease) (Chronic) HTN (hypertension) (Chronic) Neuropathy Osteoarthritis (Chronic) Osteoporosis PVD (peripheral vascular disease) (Chronic) Rheumatoid arthritis (Chronic) Steroid-induced diabetes mellitus (Chronic) Surgical History Femur fracture, right (Chronic) "s/p ORIF" H/O: hysterectomy History of carpal tunnel surgery of left wrist (Chronic) History of carpal tunnel surgery of right wrist (Chronic) History of skin graft (Chronic) Hx of cholecystectomy (Chronic) Hx of cholecystectomy S/P SHIRIN-BSO (Chronic) Family History Other Family history of high blood pressure Social History Preferred Language: Ukrainian Communication Ability: Effective Tick Inspector Required: No Beliefs That Will Affect Care: None marital status: Current Living Situation: Spouse Other Information That Helps Us Care for You: No Feels Safe at Home: Yes Safety Concerns: Feels Safe At This Time Smoking Status: Former smoker Tobacco Type: cigarettes ; Do You Dip or Chew Tobacco: No ; Second Hand Exposure: No ; Tobacco Cessation Education Requested by Patient: No Hx Alcohol Use: No Hx Substance Use: No Review of Systems Review of Systems: All systems reviewed & are unremarkable except as noted in HPI & below Physical Exam Constitutional: WD/WN, vitals as above Eyes: PERRL, conjunctivae normal, anicteric sclerae ENMT: external ear and nose normal, oropharynx normal Neck: normal visual inspection Respiratory: normal respiratory effort, lungs clear to auscultation Cardiovascular: RRR, no murmur, no edema Gastrointestinal (Abdomen): normal bowel sounds, soft, nontender, no hepatosplenomegaly Musculoskeletal: no cyanosis or clubbing, extremities motor strength 5/5 Skin: no rashes, warm and dry dressing c/d/i Psychiatric: A+Ox3, euthymic affect Results & Data Vital Signs (Past 12 Hours) Vital Signs Temp Pulse Pulse Resp BP Pulse Ox 05/03/19 11:49 36.8 C 64 18 138/77 94 05/03/19 10:13 58 L 05/03/19 07:43 36.4 C L 47 L 18 110/65 97 05/03/19 04:00 36.4 C L 55 L 20 131/72 95 05/03/19 03:57 59 L Laboratory Results Microbiology 05/02/19 12:55 Shoulder,Left Gram Stain - Final 05/02/19 12:55 Shoulder,Left Aerobic and Anaerobic Culture - Preliminary Staphylococcus species 05/01/19 10:45 Shoulder,Left Gram Stain - Final 05/01/19 10:45 Shoulder,Left Aerobic and Anaerobic Culture - Preliminary Staph aureus MRSA 04/30/19 17:10 Blood Aerobic Blood Culture - Preliminary No growth in Aerobic bottle after 48 hours. 04/30/19 17:10 Blood Anaerobic Blood Culture - Final 04/30/19 17:30 Blood Aerobic Blood Culture - Preliminary No growth in Aerobic bottle after 48 hours. 04/30/19 17:30 Blood Anaerobic Blood Culture - Preliminary No growth in Anaerobic bottle after 48 hours. PG Care Time/CCT Total # of Minutes Spent Total Time Spent with Patient: Total time spent is greater than 50% in coordination of care (as documented) at patient's floor/unit and/or counseling patient:
[2019-05-03] MEDS: HYDROCODONE/ACETAMINOPHEN 10/325 TAB PO PRN (16:10)
[2019-05-03] MEDS: WARFARIN SOD 1 MG TAB PO SCH (16:11)
[2019-05-03] MEDS: INSULIN ASPART 100 UNITS/ML 3 ML PEN SC SCH ×2 (17:27→21:01)
[2019-05-03] MEDS: DAPTOmycin 325 MG in SYRINGE 0 ML IV SCH ×2 (18:02→18:07)
[2019-05-03] MEDS: ROPINIROLE HCL 0.25 MG TABLET PO SCH (18:05)
[2019-05-04] MEDS: ONDANSETRON INJ 2 MG/ML 2 ML VIAL IV PRN (00:59)
[2019-05-04] MEDS: HYDROCODONE/ACETAMINOPHEN 10/325 TAB PO PRN ×3 (04:43→21:18)
[2019-05-04] MEDS: HYDROmorphone INJ 0.5 MG/0.5 ML SYR IV PRN ×3 (06:13→16:10)
[2019-05-04 07:57] LABS: Hematocrit (blood only) 25.9 % (37-47); Hemoglobin 8.2 g/dL (12.0-16.0); Mean Corpuscular Hgb Conc 31.7 g/dL (32-36); Mean Corpuscular Volume 82.2 fL (80-100); Mean Platelet Volume 7.9 fL (7.4-10.4); Platelet Count 410 K/uL (130-400); RDW Coefficient of Variation 15.5 % (11.5-14.5); RDW Standard Deviation 46.1 fL (36.4-46.3); Red Blood Count 3.15 M/uL (4.2-5.4); White Blood Count 9.97 K/uL (4.8-10.8)
[2019-05-04] MEDS: FERROUS SULFATE 325 MG TAB PO SCH (07:59)
[2019-05-04] MEDS: GABAPENTIN 800 MG TAB PO SCH ×3 (08:00→21:18)
[2019-05-04] MEDS: SERTRALINE HCL 50 MG TABLET PO SCH (08:00)
[2019-05-04] MEDS: MULTIVITAMIN TAB PO SCH (08:00)
[2019-05-04] MEDS: predniSONE 5 MG TAB PO SCH (08:00)
[2019-05-04] MEDS: ATORVASTATIN 40 MG TAB PO SCH (08:00)
[2019-05-04] MEDS: PANTOprazole 40 MG TAB PO SCH (08:01)
[2019-05-04] MEDS: SUCRALFATE 1 GM TAB PO SCH ×4 (08:01→21:18)
[2019-05-04] MEDS: DOCUSATE SODIUM 100 MG CAP PO SCH ×2 (08:02→21:18)
[2019-05-04 08:06] LABS: INR 1.5 (0.9-1.1); Prothrombin Time 14.9 Seconds (9.0-12.0)
[2019-05-04] MEDS: INSULIN ASPART 100 UNITS/ML 3 ML PEN SC SCH ×4 (08:31→22:01)
[2019-05-04 08:35] LABS: BUN Creatinine Ratio 16.6 (10-20); Creatinine Clr Calc Pharmacy 73.8 ml/min; Est GFR (African American) 107.3; Est GFR (Non-African American) 92.6; Magnesium 1.8 mg/dl (1.8-2.4); Potassium 3.1 mmol/L (3.5-5.1)
--- NOTE | 2019-05-04 12:57 | Orthopedic Progress Note ---
Date of Service May 04, 2019 Assessment & Plan (1) Septic joint of left shoulder region: Postop day 2 status post septic left shoulder Cultures are growing out MRSA. Patient switched to daptomycin by Dr. Owen. Awaiting authorization for IV antibiotics to return to [facility] manner. Continue IV antibiotics as per infectious disease team. Subjective Postop day 2 status post I&D left shoulder. (MRSA) Patient is sitting up in her chair at the bedside. She has just finished eating her lunch. She states that her pain is controlled and she feels well. She is hoping she can go home soon. Physical Exam Physical Exam: Dressing has been removed. Hemovac drain had partially come out on its own. Minimal drainage noted. All wounds appear benign. Suture lines well approximated. No overt erythema of the shoulder. Neurovascular is intact. Good range of motion that is nontender at the elbow wrist and hand. Capillary refills less than 2 seconds. Hemovac drain removed. New dressing applied. Results & Data Vital Signs (Past 12 Hours) Vital Signs Temp Pulse Pulse Resp BP BP Pulse Ox 05/04/19 11:19 36.8 C 65 16 132/53 L 93 05/04/19 10:56 63 05/04/19 07:52 36.5 C 58 L 18 150/64 H 97 05/04/19 04:03 36.7 C 57 L 18 179/50 H 97
[2019-05-04] MEDS: WARFARIN SOD 1 MG TAB PO SCH (16:21)
[2019-05-04] MEDS: DAPTOmycin 325 MG in SYRINGE 0 ML IV SCH (16:22)
[2019-05-04] MEDS: ROPINIROLE HCL 0.25 MG TABLET PO SCH (21:18)
[2019-05-05] MEDS ORDERED: LORazepam 0.5 MG TAB PO STA (00:06)
[2019-05-05] MEDS: HYDROmorphone INJ 0.5 MG/0.5 ML SYR IV PRN (01:01)
[2019-05-05] MEDS: SUCRALFATE 1 GM TAB PO SCH ×3 (07:35→16:30)
[2019-05-05 08:04] LABS: Hemoglobin 8.6 g/dL (12.0-16.0); Mean Corpuscular Hemoglobin 26.5 pg (25-34); Mean Corpuscular Hgb Conc 31.9 g/dL (32-36); Mean Corpuscular Volume 83.1 fL (80-100); Mean Platelet Volume 7.9 fL (7.4-10.4); Platelet Count 469 K/uL (130-400); RDW Coefficient of Variation 15.6 % (11.5-14.5); RDW Standard Deviation 47.5 fL (36.4-46.3); Red Blood Count 3.25 M/uL (4.2-5.4); White Blood Count 9.46 K/uL (4.8-10.8)
[2019-05-05 08:13] LABS: INR 1.5 (0.9-1.1); Prothrombin Time 14.7 Seconds (9.0-12.0)
[2019-05-05 08:30] LABS: BUN Creatinine Ratio 13.6 (10-20); Calcium 8.1 mg/dl (8.5-10.1); Creatinine Clr Calc Pharmacy 89.1 ml/min; Est GFR (African American) 111.3; Est GFR (Non-African American) 96.1; Potassium 2.8 mmol/L (3.5-5.1)
[2019-05-05] MEDS: predniSONE 5 MG TAB PO SCH (09:04)
[2019-05-05] MEDS: SERTRALINE HCL 50 MG TABLET PO SCH (09:04)
[2019-05-05] MEDS: PANTOprazole 40 MG TAB PO SCH (09:04)
[2019-05-05] MEDS: DOCUSATE SODIUM 100 MG CAP PO SCH (09:04)
[2019-05-05] MEDS: FERROUS SULFATE 325 MG TAB PO SCH (09:04)
[2019-05-05] MEDS: ATORVASTATIN 40 MG TAB PO SCH (09:04)
[2019-05-05] MEDS: MULTIVITAMIN TAB PO SCH (09:04)
[2019-05-05] MEDS: GABAPENTIN 800 MG TAB PO SCH ×2 (09:05→13:33)
[2019-05-05] MEDS: INSULIN ASPART 100 UNITS/ML 3 ML PEN SC SCH ×3 (09:05→17:12)
[2019-05-05] MEDS: HYDROCODONE/ACETAMINOPHEN 10/325 TAB PO PRN (11:30)
[2019-05-05] MEDS: DAPTOmycin 325 MG in SYRINGE 0 ML IV SCH (11:32)
--- NOTE | 2019-05-05 11:46 | Orthopedic Progress Note ---
Date of Service May 05, 2019 Assessment & Plan (1) Septic joint of left shoulder region: Postop day 3 status post septic left shoulder Cultures are growing out MRSA. Patient switched to daptomycin by Dr. Owen. Awaiting authorization for IV antibiotics to return to [facility]. Continue IV antibiotics as per infectious disease team. DC planning-plan to return [facility] when arrangements made for IV antibiotics. Discharge instructions placed in the EHR. Follow-up with Dr. cervantes in 1 week. Orthopedics will sign off at this time. Please call with any questions. Subjective Postop day 3 status post arthroscopic irrigation and debridement left septic shoulder joint Patient is currently lying in bed talking on the phone. She has no overt complaints today. She states that she is feeling okay. Pain is essentially controlled at this time. She is hoping to go home soon. Physical Exam Physical Exam: Dressings are intact and dry. Mild drainage noted. No overt swelling of the shoulder at this point in time. No erythema noted. CMS remains intact. Sling in place. Results & Data Vital Signs (Past 12 Hours) Vital Signs Temp Pulse Pulse Resp BP BP Pulse Ox 05/05/19 11:19 36.8 C 72 19 132/81 78/45 L 93 05/05/19 07:18 50 L 05/05/19 07:09 36.6 C 59 L 20 168/73 H 98 05/05/19 04:04 36.7 C 62 18 160/66 H 97 05/05/19 00:50 68
[2019-05-05] MEDS ORDERED: ROPINIROLE HCL 0.25 MG TABLET PO SCH (12:00)
--- NOTE | 2019-05-05 12:02 | Hospitalist Progress Note ---
Date of Service May 04, 2019 Assessment & Plan (1) Left shoulder pain: (2) Leukocytosis: Septic arthritis Pt is 73 y/o F with PMH HTN, dyslipidemia, h/o thyroid induced diabetes, anxiety, mood disorder, RLS, h/o PE on Coumadin, rheumatoid arthritis, chronic pain shoulders and knees presented to ER with c/o increased L shoulder pain x 1 week. In ER patient afebrile, BP: 84, RR: 20, BP: 129/75, 92% on room air WBC: 15, H/H: 11.7/37 (baseline Hgb ~1), lactate: 2.2 Right shoulder x-ray: No acute fractures within the left shoulder. Chronic and degenerative changes as described above. CT shoulder (04/30/2019) significant for Moderate to large peripheral enhancing effusion within the glenohumeral joint with multiple septations and thickening of the synovial lining. There is also thickening and enhancement extending into the distal subscapularis muscle. Erosive changes within the glenohumeral joint, distal clavicle, and acromion are also noted. These findings were present on the 02/22/2018 chest CTA but have progressed in the interval. Therefore, this may represent a chronic septic arthritis. DDX: Septic arthritis, RA flare. DVT LUE less likely given pt's INR >10 Suspect septic right shoulder. Plan for aspiration of joint, INR down to 1.5, Ortho consulted -In ER given NSS 500 mL bolus followed by 125 mL an hour, cefepime, vancomycin -Repeat lactate 1.7 -Blood cultures-Negative -Synovial fluid cltx - positive for MRSA - post-op day 2 s/p irrigation and debridement by orthopedics (May 02, 2019) -Started on cefepime, vancomycin initially -ID consulted, now on Daptomycin, plan for at least 21 days since I&D by ortho -While on daptomycin, patient needs weekly CBC, CMP, ESR, CPK, labs to be sent to Dr. Pennie Owen (infectious diseases) -Monitor ESR, over 90 on admission (04/30/2019) -Leukocytosis with WBC of 15.7k on admission, now improved -cont. to closely monitor -Patient is status post left shoulder aspiration (05/01), synovial fluid positive for MRSA and s/p irrigation and debridement by orthopedics (1/6), synovitis and purulent material noted in the joint during the procedure (3) Nausea and vomiting: Resolved Complained of intermittent nausea and vomiting x 2 weeks. Last episode of emesis yesterday. Poor oral intake past 3 days. Reported upper abdominal pain prior to vomiting improved with vomiting Seen at [facility] ER on 04/25/2019 for generalized abdominal pain with CT abdomen pelvis no acute findings CXR/ABD XRAY: No acute cardiopulmonary process. No evidence for bowel obstruction. May be secondary to underlying infection, possible sepsis -No current abdominal pain -nausea resolved -Zofran PRN nausea -Tolerates diet without any difficulty (4) Supratherapeutic INR: (5) History of pulmonary embolism: History of PE on chronic Coumadin INR > 10 on admission. Reported epistaxis which resolved with compression. Denies hematuria, hematochezia, melena No current bleeding -In ER given vitamin K 5 mg IV -Held Coumadin, INR then down to INR 1.5 - underwent procedures -now pt is s/p procedures/surgeries, plan restart her home coumadin -current INR still 1.5, will discuss w/ pharmacy, may need to increase her home dose of coumadin (6) Rheumatoid arthritis: (7) Chronic pain: Chronic bilateral shoulder and knee pain Patient follows with rheumatology - Dr Shaw. Pt on Remicade, chronic prednisone 5 mg daily, fentanyl and hydrocodone. 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 A1c: 6.5 on 09/09/2018. No current medications -Monitor BSG (9) Dyslipidemia: -Continue statin (10) Anxiety: -Continue sertraline (11) Restless leg syndrome: -Continue ropinirole DVT Prophylaxis - supratherapeutic INR on admission, now reversed, SCDs Full Code as per discussion with pt Follows with Dr Becerra for routine care Subjective Sitting up in bed, in no acute distress, family at the bedside. Patient denies any fevers, chills, chest pain, shortness of breath, abdominal pain, nausea or vomiting. She is very comfortable right now, her left shoulder does not bother her at all right now. Hemovac removed by orthopedics Review of Systems Review of Systems: All systems reviewed & are unremarkable except as noted in HPI & below Constitutional: no fever, no chills and no fatigue Respiratory: no cough, no dyspnea and no pain on inspiration Cardiovascular: no chest pain, no palpitations and no edema Gastrointestinal: no abdominal pain, no nausea and no vomiting Physical Exam Physical Exam: General: Elderly female sitting up in bed, in no acute distress Head: normocephalic, atraumatic Eyes: PERRL, EOM's intact, conjunctiva non-injected, anicteric ENT: normal inspection external ears, nose Neck: supple, trachea midline, non-tender Lungs: clear, no respiratory distress, no wheezing/rhonchi/rales CV: RRR, no murmur, no pretibial edema Abd: normal BS, soft, non-tender Ext: LUE: Left arm in a sling, clean dressings applied, no pain with movement, wrist without edema and non-tender to palpation. Able to flex and extend fingers. Distal pulses palpable, sensation to light touch intact, brisk capillary refill. No lower extremity edema, moves lower extremities without difficulty Neuro: A&O x 3, no focal deficits noted, normal affect, speech fluent, no facial asymmetry, Skin: warm, dry Results & Data Vital Signs (Past 12 Hours) Vital Signs Temp Pulse Pulse Resp BP BP Pulse Ox 05/05/19 11:19 36.8 C 72 19 132/81 78/45 L 93 05/05/19 07:18 50 L 05/05/19 07:09 36.6 C 59 L 20 168/73 H 98 05/05/19 04:04 36.7 C 62 18 160/66 H 97 05/05/19 00:50 68 (1) Leukocytosis Leukocytosis type: unspecified Qualified Code(s): D72.829 - Elevated white blood cell count, unspecified (2) Left shoulder pain Chronicity: chronic Qualified Code(s): M25.512 - Pain in left shoulder; G89.29 - Other chronic pain (3) Nausea and vomiting Vomiting Intractability: intractable Vomiting type: unspecified Qualified Code(s): R11.2 - Nausea with vomiting, unspecified
--- NOTE | 2019-05-05 15:45 | Discharge Summary ---
Date of Service May 05, 2019 Admission HPI Per Admitting Provider Pt is 73 y/o F with PMH HTN, dyslipidemia, h/o thyroid induced diabetes, anxiety, mood disorder, RLS, h/o PE on Coumadin, rheumatoid arthritis, chronic pain shoulders and knees presented to ER with complaints of increased shoulder pain x1 week. Patient follows with rheumatology - Dr Shaw. Pt on Remicade, chronic prednisone 5 mg daily, fentanyl and hydrocodone. Patient reports chronic shoulder and knee pain. Reports left shoulder pain greater than right shoulder pain chronically. Patient states 1 week ago started with increased left shoulder pain. Patient states past 3 days has noticed increased edema to left shoulder and area feels warm. Patient reports pain radiating from left shoulder down the left arm. Reports limited range of motion to left shoulder secondary to pain. Denies paresthesias. No recent injury or trauma. Patient also reports decreased appetite past several days. She reports intermittent nausea and vomiting over the past 2 weeks. Last episode of vomiting yesterday. Reports upper abdominal pain prior to vomiting which improves after vomiting. Denies any current abdominal pain now. Last BM 5 days ago. Patient states episode of epistaxis last night lasting 15-20 minutes, resolved with compression. Denies melena, hematochezia, hematuria. Denies fever. reports always cold. States past 2 days with generalized weakness. Denies diaphoresis,, BULLARD, dizziness, syncope, vision changes, neck pain, CP, SOB, orthopnea, palpitations, cough, sore throat, choking, otalgia, rhinorrhea, other extremity edema, rashes, urinary symptoms. Patient was seen at [facility] ER on 04/25/2019 for left shoulder pain and generalized abdominal pain. There she was given Zofran 4 mg IV, Compazine. Had CT abdomen pelvis did not show any acute findings. Had x-ray of shoulder revealing chronic severe erosive changes. Patient had no leukocytosis and was discharged home. Admission Exam Per Admitting Provider General: no acute distress, ill appearing, but non-toxic appearance, WDWN Head: normocephalic, atraumatic Eyes: PERRL, EOM's intact, conjunctiva non-injected, anicteric ENT: normal inspection external ears, nose, mucous membranes mildly dry Neck: supple, trachea midline, non-tender Lungs: clear, no respiratory distress, no wheezing/rhonchi/rales CV: RRR, no murmur, no pretibial edema Abd: normal BS, soft, non-tender Ext: LUE: Shoulder with +edema, +warmth, slight erythema, edema extends to forearm. +moderate to severe tenderness to light palpation of entire shoulder, upper arm, elbow and forearm. wrist without edema and non-tender to palpation. Very limited active ROM of elbow. Attempted passive ROM elbow and shoulder however pt unable to tolerate secondary to discomfort. Able to flex and extend fingers. Distal pulses palpable, sensation to light touch intact, brisk capillary refill. Bilateral knee without edema, erythema or significant warmth, +tender to palpation anterior knees, Able to flex and extend knees no calf tenderness Neuro: A&O x 3, no focal deficits noted, normal affect Skin: warm, dry Principal Diagnosis Septic arthritis of left shoulder Discharge Exam General: Elderly female sitting up in bed, in no acute distress Head: normocephalic, atraumatic Eyes: PERRL, EOM's intact, conjunctiva non-injected, anicteric ENT: normal inspection external ears, nose Neck: supple, trachea midline, non-tender Lungs: clear, no respiratory distress, no wheezing/rhonchi/rales CV: RRR, no murmur, no pretibial edema Abd: normal BS, soft, non-tender Ext: LUE: Left arm in a sling, clean dressings applied, no pain with movement, wrist without edema and non-tender to palpation. Able to flex and extend fingers. Distal pulses palpable, sensation to light touch intact, brisk capillary refill. No lower extremity edema, moves lower extremities without difficulty Neuro: A&O x 3, no focal deficits noted, normal affect, speech fluent, no facial asymmetry, Skin: warm, dry Discharge Data Allergies Allergy/AdvReac Type Severity Reaction Status Date / Time bee venom protein (honey bee) Allergy Severe ANAPHYLAXIS Verified 04/30/19 15:43 celecoxib Allergy Severe ANAPHYLAXIS Verified 04/30/19 15:43 rofecoxib Allergy Severe ANAPHYLAXIS Verified 04/30/19 15:43 naproxen Allergy Intermediate RASH Verified 04/30/19 15:43 oxycodone Allergy Intermediate RASH Verified 04/30/19 15:43 Penicillins Allergy Intermediate Hives Verified 04/30/19 15:43 Bactrim AdvReac Intermediate GI SYMPTOMS Verified 02/27/17 10:41 sulfamethoxazole AdvReac Intermediate GI SYMPTOMS Verified 04/30/19 15:43 trimethoprim AdvReac Intermediate GI SYMPTOMS Verified 04/30/19 15:43 clindamycin AdvReac Mild GI SYMPTOMS Verified 04/30/19 15:43 doxycycline AdvReac Mild GI SYMPTOMS Verified 04/30/19 15:43 hydrochlorothiazide AdvReac Mild Gi Symptoms Verified 04/30/19 15:43 Consultations 04/30/19 16:51 ED Decision to Admit Stat 04/30/19 20:04 Consult Case Management - Discharge Planning Routine 05/01/19 07:00 Consult Orthopedic Surgery Routine 05/02/19 13:51 Consult Infectious Diseases Routine Procedures Performed Operation Date: 05/02/19 08:10 Actual Procedures p Left Shoulder Arthroscopic Incision and Drainage(Left) - Neil Alvarenga MD Ordered Studies 04/30/19 14:48 CT head/brain wo con Stat 04/30/19 18:53 CT shoulder LT w con Stat Hospital Course (1) Left shoulder pain: (2) Leukocytosis: Septic arthritis Pt is 73 y/o F with PMH HTN, dyslipidemia, h/o thyroid induced diabetes, anxiety, mood disorder, RLS, h/o PE on Coumadin, rheumatoid arthritis, chronic pain shoulders and knees presented to ER with c/o increased L shoulder pain x 1 week. In ER patient afebrile, BP: 84, RR: 20, BP: 129/75, 92% on room air WBC: 15, H/H: 11.7/37 (baseline Hgb ~1), lactate: 2.2 Right shoulder x-ray: No acute fractures within the left shoulder. Chronic and degenerative changes as described above. CT shoulder (04/30/2019) significant for Moderate to large peripheral enhancing effusion within the glenohumeral joint with multiple septations and thickening of the synovial lining. There is also thickening and enhancement extending into the distal subscapularis muscle. Erosive changes within the glenohumeral joint, distal clavicle, and acromion are also noted. These findings were present on the 02/22/2018 chest CTA but have progressed in the interval. Therefore, this may represent a chronic septic arthritis. DDX: Septic arthritis, RA flare. DVT LUE less likely given pt's INR >10 Suspect septic right shoulder. Plan for aspiration of joint, INR down to 1.5, Ortho consulted -In ER given NSS 500 mL bolus followed by 125 mL an hour, cefepime, vancomycin -Repeat lactate 1.7 -Blood cultures-Negative -Synovial fluid cltx - positive for MRSA - post-op day 3 s/p irrigation and debridement by orthopedic surgeon, Dr. Alvarenga (May 02, 2019) -will need to follow-up with Dr. Alvarenga in 1 week -Started on cefepime, vancomycin initially -ID consulted, now on Daptomycin, plan for at least 21 days since I&D by ortho -While on daptomycin, patient needs weekly CBC, CMP, ESR, CPK, labs to be sent to Dr. Pennie Owen (infectious diseases) -Monitor ESR, over 90 on admission (04/30/2019) -Leukocytosis with WBC of 15.7k on admission, now improved, down to 9.5K -cont. to closely monitor -Patient is status post left shoulder aspiration (05/01), synovial fluid positive for MRSA and s/p irrigation and debridement by orthopedics (05/02), synovitis and purulent material noted in the joint during the procedure (3) Nausea and vomiting: Resolved Complained of intermittent nausea and vomiting x 2 weeks. Last episode of emes is yesterday. Poor oral intake past 3 days. Reported upper abdominal pain prior to vomiting improved with vomiting Seen at [facility] ER on 04/25/2019 for generalized abdominal pain with CT abdomen pelvis no acute findings CXR/ABD XRAY: No acute cardiopulmonary process. No evidence for bowel obstruction. May be secondary to underlying infection, possible sepsis -No current abdominal pain -nausea resolved -Zofran PRN nausea -Tolerates diet without any difficulty (4) Supratherapeutic INR: (5) History of pulmonary embolism: History of PE on chronic Coumadin INR > 10 on admission. Reported epistaxis which resolved with compression. Denies hematuria, hematochezia, melena No current bleeding -In ER given vitamin K 5 mg IV -Held Coumadin, INR then down to INR 1.5 - underwent procedures -now pt is s/p procedures/surgeries, plan restart her home coumadin -current INR still 1.5, will give 2 mg of warfarin today, prior to discharge Anemia -Hemoglobin 8.6, patient is already on iron supplement -MCV 83 -Per records, has chronic anemia, hemoglobin around 10, likely anemia of chronic disease and iron deficiency anemia -Currently likely acute on chronic anemia, due to surgical procedure -Continue to monitor Hypokalemia -Possibly secondary to history of poor oral intake -Replete and monitor (6) Rheumatoid arthritis: (7) Chronic pain: Chronic bilateral shoulder and knee pain Patient follows with rheumatology - Dr Shaw. Pt on Remicade, chronic prednisone 5 mg daily, fentanyl and hydrocodone. 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 A1c: 6.5 on 09/09/2018. No current medications -Monitor BSG (9) Dyslipidemia: -Continue statin (10) Anxiety: -Continue sertraline (11) Restless leg syndrome: -Continue ropinirole DVT Prophylaxis - supratherapeutic INR on admission, now reversed, SCDs Full Code as per discussion with pt Follows with Dr Becerra for routine care Total Time Total Time Spent Total Time Spent (In Minutes): 45 Total Time Includes: Examination of the Patient, Discharge Planning, Medication Reconciliation and Communication With Other Providers Discharge Plan Discharge Items Patient Disposition: Transfer [facility] Reason For Visit: L SHOULDER PAIN Discharge Diagnosis: Septic arthritis of left shoulder Activity: Per Instructions section Non-emergency contact: Primary Care Provider and Surgeon Call non-emergency contact if: you have any medication questions and your symptoms worsen Follow-up/Referrals: Raheel Becerra MD [Primary Care Provider] - Diet: Carb Consistent or DM2 Addtl Attending Provider Instructions: You will need to be on IV antibiotics, daptomycin, for at least next 18 days. You will need to follow-up with infectious disease doctor. You will need blood work:CBC, CMP, ESR, CPK. Results should be sent to Dr. Pennie Owen, infectious disease physician. You can take your iron supplement, twice a day, as you are anemic and iron deficiency can contribute to your restless leg syndrome. You can also take your blood per requip twice a day instead of just at night, this should help with your restless leg syndrome. Discuss further with your primary care provider these medications. You will need to follow-up with orthopedic surgeon, Dr Alvarenga, in 1 week. You will be given 2 mg of warfarin before you leave, your INR is currently not at the right level (low). Your INR should be rechecked in the next 1 to 2 days. Your potassium has been low here, you should have your potassium level rechecked in the next 1 to 2 days. Please read further instructions from orthopedic surgeon below: Addtl Babbitter Provider Instructions: [facility] DISCHARGE INSTRUCTIONS: SHOULDER ARTHROSCOPY with or without Distal Clavicle Excision SELF CARE INSTRUCTIONS AFTER: A. You are allowed to use your arm actively as comfort allows. Recommend NOT doing repetitive overhead activity or heavy lifting. B. You should start gentle range of motion exercises as instructed by physical therapy. C. You can discontinue the sling as comfort allows within one to two days after surgery. A. DAILY DRESSING CHANGES. You may start to shower when there is no drainage from the wounds. No direct shower pressure to the wounds themselves. Do not soak them. B. Do NOT apply soap or any ointment/lotions directly over incision. C. You may use ice as needed to operative shoulder SPECIAL CARE INSTRUCTIONS: VERY IMPORTANT TO READ AND REVIEW A. There are a few signs you need to watch for after you are home. Call [facility] at [phone] if you experience any of the following: a. Increased severe shoulder pain. Some pain is expected especially when you exercise b. Increased swelling in your shoulder or arm; pain or swelling in either upper extremity. (Note: swelling and stiffness is normal and expected for several weeks post op, depending on type of shoulder surgery you had). c. Any fluid or drainage from the incision; redness of the incision. d. Shortness of breath or chest pain. B. Please call [facility] at [phone] if you have any questions or concerns about your operation or recovery. C. Call your physician if: a. Temperature is greater than 101 degrees (F). b. Pain is not relieved by prescribed pain medications. c. Increase drainage or redness from incision. d. Unanswered questions or concerns. D. Pain Medication: a. You will be prescribed pain medication upon discharge that should last till your first post-operative appointment. b. You may also take Advil or Ibuprofen between medication doses if you do not have any contraindication to taking them. c. You may also take Advil or Ibuprofen in place of your pain m edication if the pain is tolerable. d. If you experience nausea and/or skin rash, discontinue this medication and contact our office for an alternative medication. e. Caution- narcotic pain medication can cause constipation. FOLLOW UP VISIT: Please call [facility] at [phone] to schedule a follow up appointment with Dr Alvarenga in 7-10 days from your surgery date. Pending Studies at Discharge: No Stand-Alone Forms: My [facility] Skilled Items Patient informed of condition?: Yes DNR: No Discharge Level of Care: Skilled Communicable Disease: No Discharge Prognosis: Improving Lines: None Urinary Catheter: No Medications and DC Order Prescriptions: New docusate sodium 100 mg Capsule 100 mg PO BID PRN (Reason: constipation) 10 Days Qty: 20 RF: 0 Continued warfarin [Jantoven] 2 mg tablet 1 mg PO DAILY RF: 0 atorvastatin [Lipitor] 40 mg tablet 40 mg PO DAILY RF: 0 ondansetron HCl [Zofran] 4 mg tablet 4 mg PO Q8 PRN (Reason: Nausea) RF: 0 hydrocodone-acetaminophen 10-325 mg tablet 1 - 2 tab PO TID PRN (Reason: Pain) RF: 0 omeprazole 20 mg Tablet,Delayed Release (Dr/Ec) 20 mg PO DAILY RF: 0 fentanyl 37.5 mcg/hour patch 72 hour 37.5 mcg topical [id number] RF: 0 sucralfate 1 gram tablet 1 g PO ACHS RF: 0 prednisone 5 mg tablet 5 mg PO DAILY RF: 0 gabapentin 800 mg tablet 800 mg PO TID RF: 0 sertraline 50 mg tablet 50 mg PO DAILY RF: 0 Changed ferrous sulfate 325 mg (65 mg iron) Tablet 325 mg PO BID Qty: 0 RF: 0 ropinirole 0.5 mg Tablet 0.5 mg PO BID Qty: 0 RF: 0 Discharge Orders: Discharge Order (Routine); Ordered 05/05/19 Ordered By: Rohan Gonzales/Other Patient Handouts: A1C Admission Data Admit Date/Time: 04/30/19 18:08 Attending Provider: Rohan Corbin Admit Provider: Alesha Zhao Primary Care Provider: Raheel Becerra Other Providers: Alesha Zhao ; Garcia Mccarty Jennifer
[2019-05-05] MEDS ORDERED: WARFARIN SOD 2 MG TAB PO SCH (16:00)
[2019-05-05] MEDS ORDERED: POTASSIUM CHLORIDE 20 MEQ TABCR PO STA (16:02)
[2019-05-05] MEDS ORDERED: POTASSIUM CHLORIDE 20 MEQ TABCR PO SCH (17:00)
[2019-05-05] MEDS ORDERED: LACTOBACILLUS ACIDOPHILUS (FLORANEX) TAB PO SCH (17:00)
[2019-05-05] MEDS ORDERED: FERROUS SULFATE 325 MG TAB PO SCH (21:00)
--- NOTE | 2019-05-09 11:39 | Coding Query ---
ANEMIA To promote full compliance with coding requirements relating to patient care, physician participation is requested in all cases of ip counsel uncertainty. Please assist us with the question(s) below: Coding Question(s): The record reflects the following clinical findings: Discharge Summary documents Acute on Chronic Anemia. Please specify the Acute Anemia. If these findings are indicative of anemia, please specify the known or suspected type by placing an "X" within the parenthesis (x). If other, please document type. Examples are: ( ) Acute blood loss anemia ( ) Acute Postoperative blood loss anemia ( ) Acute postoperative anemia due to dilutional fluids ( ) Anemia, unspecified or other ( ) Other: (please specify) ( ) Unable to determine Thank you Rody Garcia Pt has likely acute on chronic anemia. Acute d/t post. op acute blood loss and dilutional from fluids. Underlying chronic anemia from iron def. and anemia of chronic disease. Thank you Arpit MAY
--- NOTE | 2019-05-09 11:43 | Coding Query ---
CODING QUERY To promote full compliance with coding requirements relating to patient care, provider participation is requested in all cases of roll shop supervisor uncertainty. Please assist us with the question(s) below: Coding Question(s): There is documentation on H&P, Progress Notes and Discharge Summary of Possible Sepsis under the Nausea and Vomiting heading. Please specify below, in your clinical opinion, regarding the Possible Sepsis. ( x ) Possible Sepsis means Septic Joint ( x ) Possible Sepsis was treated ( ) Possible Sepsis was Ruled-Out ( ) Possible Sepsis is Other: Please specify Physician's Response(s): Pt had nausea and vomiting likely secondary to underlying infection from septic joint. Nausea and vomiting resolved w/ treatment (antibiotics and I&D by orthopedics). Thank you Rody Garcia Principal Diagnosis: "that condition established after study, to be chiefly responsible for occasioning the admission of the patient to the hospital for care." Co-Existing Principal Diagnosis: "when two or more diagnoses equally meet the criteria for principal diagnosis as determined by the circumstances of admission, diagnostic work up, and/or therapy provided, and the Alphabetic Index, Tabular List, or another coding guideline does not provide sequencing direction, any one of the diagnoses may be sequenced first." "When the physician has documented what appears to be a current diagnosis in the body of the record, but has not included the diagnosis in the final diagnostic statement, the physician should be asked whether the diagnosis should be added." (Source Coding [facility] 2 QTR90. p3-4) YADIRA
== END 2019-05-05 17:50 | DRG 511 ==
LOC: ED 14:16 → SUATTDRO 18:08 → 2W 18:08